=== PATIENT | male | born 1955 | race Caucasian/White ===

== ENCOUNTER → 2021-10-13 13:20 | Outpatient (BNVA) | payer MEDICARE, SELFPAY | PROVIDERS: PCP Nurse Practitioner Family; Referring Provider Nurse Practitioner Family; Visit Provider Nurse Practitioner | DX: Z12.11 Encounter for screening for malignant neoplasm of colon (principal); D12.6 Benign neoplasm of colon, unspecified | CPT/HCPCS: 99202 ==

== ENCOUNTER 2021-10-19 08:49 | Outpatient (REF) | payer MEDICARE, SELFPAY ==
[2021-10-19 11:26] LABS: MANUAL DIFF FLAG NO
[2021-10-19 11:31] LABS: Basophils Absolute Auto 0.2 X10*3/uL (0.0-0.2); Basophils Percent Auto 2.9 % (0-2); Eosinophils Absolute Auto 0.2 X10*3/uL (0.0-0.4); Eosinophils Percent Auto 2.6 % (0-4); Hematocrit 42.8 % (42.0-52.0); Hemoglobin 14.4 g/dl (14.0-18.0); Imm Gran Abs Auto 0.04 X10*3/uL (0.00-0.03); Imm Gran Pct Auto 0.5 % (0.0-0.4); Lymphocytes Absolute Auto 2.3 X10*3/uL (1.2-4.9); Lymphocytes Percent Auto 29.7 % (20-40); Mean Corpuscular HGB Conc 33.6 g/dl (31.0-36.0); Mean Corpuscular Hemoglobin 31.3 pg (27.0-33.0); Mean Platelet Volume 9.8 fL (9.4-12.4); Monocytes Percent Auto 12.6 % (2-11); Neutrophils Percent Auto 51.7 % (45-73); Platelet Count 332 X10*3/uL (160-400); White Blood Count 7.8 X10*3/uL (4.8-10.8)
[2021-10-19 11:46] LABS: Alanine Aminotransferase 18 U/L (0-40); Albumin Level 3.9 g/dL (3.5-5.0); Alkaline Phosphatase 61 U/L (39-117); Anion Gap 11 (12-20); Aspartate Amino Transferase 23 U/L (5-37); Bilirubin Total 0.4 mg/dL (0.0-1.0); Blood Urea Nitrogen 8 mg/dL (9-16); Calcium 9.2 mg/dL (8.4-10.2); Carbon Dioxide 30 mmol/L (22-29); Chloride 96 mmol/L (96-108); Estimated Glomerular Filt Rate > 60; Glucose Random 91 mg/dL (60-115); Potassium 4.6 mmol/L (3.3-5.1); Sodium 132 mmol/L (135-145); Total Protein 6.3 g/dL (6.5-8.0)
== END 2021-10-19 08:50 | disposition home or self-care (01) ==
LOC: HO.HMGCLDS 08:49
PROVIDERS: PCP Nurse Practitioner Family; Visit Provider Nurse Practitioner
DX: Z12.11 Encounter for screening for malignant neoplasm of colon (principal)
CPT/HCPCS: 36415; 80053; 85025

== ENCOUNTER 2021-12-19 12:44 | Outpatient (REF) | payer MEDICARE, SELFPAY ==
--- NOTE | ~2021-12-19 | XR_ITS ---
EXAMINATION: XR CHEST CLINICAL INFORMATION: Pneumonia COMPARISON: None TECHNIQUE: 2 views of the chest were obtained. FINDINGS: The cardiac and mediastinal contours are normal. The lungs are well inflated. There are increased markings seen in the central right upper lobe overlying the right anterior first rib questionable for small infiltrate. The lungs are otherwise clear. There is no pleural effusion or pneumothorax. There are degenerative changes of the spine. XR/XR chest 2V IMPRESSION: Well-inflated lungs suggestive of COPD. Increased markings in the right upper lobe questionable for small infiltrate. Follow-up chest x-ray following treatment recommended.
== END 2021-12-19 12:45 | disposition home or self-care (01) ==
LOC: HO.HMGCX 12:44
PROVIDERS: PCP Nurse Practitioner Family; Visit Provider Family Medicine
DX: J18.9 Pneumonia, unspecified organism (principal); J44.9 Chronic obstructive pulmonary disease, unspecified; R05.9 Cough, unspecified
CPT/HCPCS: 71046

== ENCOUNTER 2022-01-17 08:04 | Outpatient (REF) | payer MEDICARE, SELFPAY ==
--- NOTE | ~2022-01-17 | XR_ITS ---
EXAMINATION: XR CHEST CLINICAL INFORMATION: Pneumonia, unspecified organism COMPARISON: Chest radiograph 12/19/2021 TECHNIQUE: 2 views of the chest were obtained. FINDINGS: The lungs are hyperinflated with inversion of the right hemidiaphragm. There is mild bilateral apical scarring. There is again increased marking in the central right upper lung zone which may represent superimposition of bronchovascular structures as well as degenerative change at the first costochondral junction. In addition there is a 1.2 cm nodular opacity at the lateral aspect of the right mid lung zone overlapping the anterior lateral aspect of the right sixth rib. There is no pleural effusion. The cardiomediastinal silhouette is unchanged. Structures of the chest wall are unchanged XR/XR chest 2V IMPRESSION: Persistent findings of pulmonary hyperinflation with possible nodular opacity in the lateral aspect of the right midlung zone and persistent increased markings in the right upper lung zone. Further evaluation with CT could be helpful.
[2022-01-17 12:09] LABS: Alanine Aminotransferase 21 U/L (0-40); Albumin Level 3.8 g/dL (3.5-5.0); Alkaline Phosphatase 66 U/L (39-117); Anion Gap 11 (12-20); Aspartate Amino Transferase 26 U/L (5-37); Bilirubin Total 0.5 mg/dL (0.0-1.0); Blood Urea Nitrogen 11 mg/dL (9-16); Calcium 9.2 mg/dL (8.4-10.2); Carbon Dioxide 30 mmol/L (22-29); Chloride 97 mmol/L (96-108); Estimated Glomerular Filt Rate > 60; Glucose Random 91 mg/dL (60-115); Potassium 5.2 mmol/L (3.3-5.1); Sodium 133 mmol/L (135-145); Total Protein 6.3 g/dL (6.5-8.0)
[2022-01-17 12:34] LABS: Prostate Specific Antigen Scr 0.49 ng/mL (<0.05-4.0); TSH reflex Free T4 1.33 uIU/mL (0.32-4.0)
== END 2022-01-17 08:05 | disposition home or self-care (01) ==
LOC: HO.HMGCX 08:04
PROVIDERS: PCP Nurse Practitioner Family; Visit Provider Nurse Practitioner Family
DX: J18.9 Pneumonia, unspecified organism (principal); I10 Essential (primary) hypertension; Z12.5 Encounter for screening for malignant neoplasm of prostate
CPT/HCPCS: 36415; 71046; 80053; 84153; 84443

== ENCOUNTER 2022-01-20 08:51 | Outpatient (REF) | payer MEDICARE, SELFPAY ==
[2022-01-20 12:21] LABS: Anion Gap 11 (12-20); Carbon Dioxide 28 mmol/L (22-29); Chloride 94 mmol/L (96-108); Potassium 4.4 mmol/L (3.3-5.1); Sodium 129 mmol/L (135-145)
== END 2022-01-20 08:52 | disposition home or self-care (01) ==
LOC: HO.HMGCLDS 08:51
PROVIDERS: PCP Nurse Practitioner Family; Visit Provider Nurse Practitioner Family
DX: E78.5 Hyperlipidemia, unspecified (principal)
CPT/HCPCS: 36415; 80051

== ENCOUNTER 2022-01-25 06:23 | Outpatient (REF) | payer MEDICARE, SELFPAY ==
[2022-01-25 11:47] LABS: Alanine Aminotransferase 28 U/L (0-40); Albumin Level 3.8 g/dL (3.5-5.0); Alkaline Phosphatase 63 U/L (39-117); Anion Gap 13 (12-20); Aspartate Amino Transferase 29 U/L (5-37); Bilirubin Total 0.5 mg/dL (0.0-1.0); Blood Urea Nitrogen 10 mg/dL (9-16); Calcium 9.2 mg/dL (8.4-10.2); Carbon Dioxide 27 mmol/L (22-29); Chloride 99 mmol/L (96-108); Estimated Glomerular Filt Rate > 60; Glucose Random 97 mg/dL (60-115); Potassium 4.6 mmol/L (3.3-5.1); Sodium 134 mmol/L (135-145); Total Protein 6.1 g/dL (6.5-8.0)
[2022-01-26 07:42] LABS: Osmolality, Serum 277 mosm/kg (281-305)
[2022-01-26 07:43] LABS: Osmolality Urine 289 mosm/kg (373-1093)
== END 2022-01-25 06:24 | disposition home or self-care (01) ==
LOC: HO.HMGCLDS 06:23
PROVIDERS: Visit Provider Nurse Practitioner Family
DX: E87.1 Hypo-osmolality and hyponatremia (principal)
CPT/HCPCS: 36415; 80053; 83930; 83935

== ENCOUNTER 2022-01-31 08:18 | Day surgery (SDC) | payer MEDICARE, SELFPAY ==
[2022-01-24 13:48] VITALS: BMI 17.6
--- NOTE | 2022-01-30 13:10 | HO.ANESPROP2 ---
Documented by User: Zulma Atkinson NP 01/30/22 13:12 HPI - Anesthesia Eval Consult details Narrative: 67yo M for Colonoscopy [facility] Active Problems Active Problems: All Active Problems (Updated 01/24/22 @ 13:49 by Adelia Martinez RN) Screening for colon cancer (Acute) COPD (chronic obstructive pulmonary disease) (Acute) HTN (hypertension) (Acute) Tubular adenoma of colon (Acute) Pneumonia (Acute) Screening PSA (prostate specific antigen) (Acute) Hyperkalemia (Acute) Opacity of lung on imaging study (Acute) Hyponatremia (Acute) Past Medical History Medical History COPD (chronic obstructive pulmonary disease) Skin cancer Smoker Surgical History Surgical History Hx of arthroscopic knee surgery Hx of tonsillectomy Social History Social History Housing: House Patient Tobacco Use Status: Current everyday Tobacco user Tobacco use type: Cigarette Cigarettes Per Day: 20 e-Cigarette/Vaping Use: Never Used Second Hand Smoke Exposure: No Advance Directives: No Advance Directives Information Provided: Yes service: Yes Current occupational status: employed Current occupation: [employer] Current occupational exposures/hazards: Yes Cognitive needs: No Hearing needs: No Vision needs: No Meds Allergies Allergy/AdvReac Type Severity Reaction Status Date / Time bee venom protein (honey bee) Allergy Severe Anaphylaxis Verified 01/03/22 15:20 Exam Exam Date and Time: January 30, 2022 1310 Height,Weight and Vital Signs: Height 5 ft 10 in Weight 55.792 kg Pertinent Lab Results Pertinent Lab Results: Laboratory Tests 10/19/21 01/25/22 09:06 06:28 WBC 7.8 Hgb 14.4 Hct 42.8 Plt Count 332 Sodium 134 L Potassium 4.6 Chloride 99 Carbon Dioxide 27 BUN 10 Creatinine 0.70 Assessment and Plan Assessment Anesthesia Assessment: Chart Reviewed Documented by User: Pallavi Barney MD 01/31/22 10:48 [facility] Past Medical History Medical History COPD (chronic obstructive pulmonary disease) Skin cancer Smoker Surgical History Surgical History Hx of arthroscopic knee surgery Hx of tonsillectomy History of Problems with Anesthesia: No Social History Social History Housing: House Patient Tobacco Use Status: Current everyday Tobacco user Tobacco use type: Cigarette Cigarettes Per Day: 20 e-Cigarette/Vaping Use: Never Used Second Hand Smoke Exposure: No Advance Directives: No Advance Directives Information Provided: Yes service: Yes Current occupational status: employed Current occupation: [employer] Current occupational exposures/hazards: Yes Cognitive needs: No Hearing needs: No Vision needs: No Meds Allergies Allergy/AdvReac Type Severity Reaction Status Date / Time bee venom protein (honey bee) Allergy Severe Anaphylaxis Verified 01/03/22 15:20 Exam Airway Mallampati Class: III (Poor dentition) Neck ROM: Full Loose/Missing/Broken Teeth: Yes, Upper and Lower Heart: RRR Lungs: CTA Assessment and Plan Assessment Anesthesia Assessment: Anesthesia Plan Discussed Final Anesthetic Review History of Problems with Anesthesia: No NPO: Yes ASA Class: III Final Preanesthetic Review: Meds/Allgs Chart Reviewed, Consent Obtained/Reviewed and Anes Risks/Benef Reviewed Patient Risk: Intermediate Procedure Risk: Low Anesthetic Plan Anesthetic Plan: MAC: Disposition: Standard PACU
[2022-01-31 08:43] VITALS: BP 151/85; PULSE 102; RESP 20; TEMP 36.7; O2SAT 100
--- NOTE | 2022-01-31 09:08 | P.HPSUR_ITS ---
Pre-Procedural Eval Section A Date of Service: 01/31/22 Section B Chief Complaint: screening Relevant Family History (Specify if Yes): No Relevant Social History: Tobacco Use Present Medications: see Short Stay Collaborative assessment Medical History: Significant History (COPD (chronic obstructive pulmonary disease) Skin cancer Smoker) History of Previous Operations: Relevant previous surgery/procedure and date(s) (Hx of arthroscopic knee surgery Hx of tonsillectomy) Allergies: Allergies Allergy/AdvReac Type Severity Reaction Status Date / Time bee venom protein (honey bee) Allergy Severe Anaphylaxis Verified 01/03/22 15:20 Review of Systems Sugical H&P ROS: Negative: Constitution, Cardiovascular, Respiratory, Neurological, Psychiatric, Hem-Onc, Allergic/Immunologic, Gastrointestinal, Genitourinary, Musculoskeletal, Integumentary, Endocrine and Eye s/Ears/Nose/Throat Exam Surgical H&P Exam: Normal: HEENT, Normal: Heart, Normal: Extremities, Normal: Abdomen, Normal: Skin and Normal: Neurological and Significant Findings: Lungs (reduced BS, hyperinflated chest) Plan Diagnosis/Plan: Unchanged I have reviewed the history and physical and performed a pertinent physical examination on my patient. No changes have occurred unless specified.
[2022-01-31] MEDS: Albuterol Sulfate (0.083%) 2.5 MG/3 ML VIAL.NEB INHALE ×2 (09:14→09:15)
--- NOTE | 2022-01-31 09:25 | P.BOP_ITS ---
Brief Operative Note Date of Service: 01/31/22 Pre-op diagnosis: screening Post-op diagnosis: same Procedure: see op note Surgeon: Alonzo Sullivan MD Anesthesia: MAC Was an Primary Care Sales Representative used for this Procedure?: No Estimated blood loss (mL): 0 Condition: stable Disposition: PACU
--- NOTE | 2022-01-31 09:36 | P.OP_ITS ---
Operative Note Operative Note Date of Service: 01/31/22 Narrative: Operative Information Procedure Description: Colonoscopy Indication: screening colonoscopy Anesthesia: MAC COLONOSCOPY Instrument: Olympus variable stiffness pediatric scope 190L Colonoscopy Monitoring: Vital signs and clinical assessment, continuous EKG monitoring, Pulse oximetry, Carbon Dioxide monitoring and blood pressure monitoring were done throughout the procedure. Colon withdrawal time was 10 minutes. Procedure: The patient was placed in the left lateral decubitis position and pre-procedure medications were administered. After a digital rectal examination of the ano-rectum, the video colonoscope was inserted into the rectum and advanced through the colon to the cecum/TI. The colonoscope was slowly withdrawn in a retrograde panoramic fashion and the colon mucosa was carefully examined including a retroflexed view of the rectum. Findings and interventions are described below. Procedure Difficulty: easy Findings: Terminal Ileum-normal Cecum:normal Ascending Colon: 10-12 mm sessile polyp removed with cold snare Transverse Colon -8-10 mm sessile polyp removed with cold snare Descending Colon:normal Sigmoid Colon: moderate severe diverticulosis Rectum: Retroflexion with small internal hemorrhoids, grade I Anorectum - normal Colon preparation: Orchard Bowel Preparation Scale Right colon; 2 Transverse colon: 2 Left colon; 2 (0 = Unprepared colon segment with mucosa not seen due to solid stool that cannot be cleared. 1 = Portion of mucosa of the colon segment seen, but other areas of the colon segment not well seen due to staining, residual stool and/or opaque liquid. 2 = Minor amount of residual staining, small fragments of stool and/or opaque liquid, but mucosa of colon segment seen well. 3 = Entire mucosa of colon segment seen well with no residual staining, small fragments of stool or opaque liquid) Impression and Post Procedure Diagnosis: polyps internal hemorrhoids diverticular disease Plan: High fiber diet leaflet Avoid straining at stool, epsom salts and sitz bath, anusol supps or cream Repeat Colonoscopy in 5 years if adenomatous polyps, 10 yrs if benign or earlier if clinically indicated Above findings were reviewed with the patient and relevant handouts were provided if indicated.
[2022-01-31 09:58] VITALS: BP 112/61; PULSE 94; RESP 20; TEMP 36.8; O2SAT 100
[2022-01-31 10:13] VITALS: BP 141/72; PULSE 92; RESP 18; TEMP 36.6; O2SAT 98
== END 2022-01-31 10:52 | disposition home or self-care (01) ==
PROVIDERS: PCP Nurse Practitioner Family; Visit Provider Internal Medicine Gastroenterology
PROC: 0DJD8ZZ Inspection of Lower Intestinal Tract, Via Natural or Artificial Opening Endoscopic (ICD-10-PCS; CPT 45378; principal; 2022-01-31 09:30)
DX: Z12.11 Encounter for screening for malignant neoplasm of colon (principal); D12.2 Benign neoplasm of ascending colon; D12.3 Benign neoplasm of transverse colon; K57.30 Diverticulosis of large intestine without perforation or abscess without bleeding; K64.0 First degree hemorrhoids; I10 Essential (primary) hypertension; J44.9 Chronic obstructive pulmonary disease, unspecified; Z79.899 Other long term (current) drug therapy; Z85.828 Personal history of other malignant neoplasm of skin; Z91.030 Bee allergy status; F17.210 Nicotine dependence, cigarettes, uncomplicated
CPT/HCPCS: 45385; 88305

== ENCOUNTER 2022-02-03 08:10 | Outpatient (REF) | payer MEDICARE, SELFPAY ==
--- NOTE | ~2022-02-03 | CT_ITS ---
EXAMINATION: CT CHEST WITHOUT CONTRAST CLINICAL INFORMATION: Pneumonia. Follow-up abnormal chest x-ray. COMPARISON: Previous chest x-rays from November and December 2021 TECHNIQUE: Multidetector volumetric CT imaging of the chest was done. Axial MIP volume rendering provided. Sagittal and coronal reformatted images were obtained. This CT examination was performed using dose optimization techniques as appropriate, variously including the following: *Automated exposure control *Adjustment of mA and/or kV according to patient size (this includes techniques or standardized protocols for targeted exams where dose is matched to indication/reason for exam; i.e. extremities or head) *Use of iterative reconstruction technique DLP: 95 mGy-cm FINDINGS: LUNGS: There is evidence of emphysema. There is mild biapical pleural parenchymal scarring. There is a 2 mm right upper lobe nodule axial image 53 series 7. There are 2 2 mm left upper lobe nodules axial image 53 series 7. There are larger 4 mm peripheral left upper lobe nodules axial image 61 series 7 probably related to pleural and parenchymal scarring. There is a 5 mm peripheral or subpleural left upper lobe nodule along the left pleural fissure axial image 82 series 7. There are several more inferior peripheral or subpleural nodules in the left upper and left lower lobe along the major fissure, for example axial image 106 series 7. There is a 2 mm superior segment right lower lobe nodule axial image 174 series 7. There is a 2 mm peripheral left lower lobe nodule axial image 174 series 7. . There are scattered areas of bronchial wall thickening and bronchial soft tissue opacification. This is greatest in the lower lobes, for example axial image 450 series 7 in the right lower lobe. There are clustered peribronchial left lower lobe nodules suggestive of airways disease for example axial image 205 and 235 series 7 and in the right middle lobe for example axial image 307 series 7.. There is a 2 mm calcified left lower lobe nodule axial image 258 series 7. MEDIASTINUM: There is coronary artery calcification. The mediastinum is otherwise normal. PLEURA: There is no pleural effusion. No pleural mass or thickening. AXILLA: No lymphadenopathy. UPPER ABDOMEN: Unremarkable. OSSEOUS STRUCTURES: There are degenerative changes of the spine. CT/CT chest wo con IMPRESSION: Emphysema. Mild biapical pleural parenchymal scarring. Scattered areas of active airways disease with bronchial wall thickening, soft tissue opacification and clustered peribronchial nodules or tree-in-bud appearance. Small pulmonary nodules or micro-nodules. According to the UPDATED 2017 Fleischner Society recommendations, the advised follow-up imaging for less than 6 mm solid nodule, low risk, no chest CT follow-up and high risk, optional chest CT follow-up in one Fleischner guidelines were followed.
== END 2022-02-03 08:11 | disposition home or self-care (01) ==
LOC: HO.CT 08:10
PROVIDERS: PCP Nurse Practitioner Family; Visit Provider Nurse Practitioner Family
DX: R91.8 Other nonspecific abnormal finding of lung field (principal)
CPT/HCPCS: 71250

== ENCOUNTER → 2022-02-13 13:53 | Outpatient (BNVA) | payer MEDICARE, SELFPAY | PROVIDERS: PCP Nurse Practitioner Family; Referring Provider Nurse Practitioner Family; Visit Provider Nurse Practitioner | DX: D12.6 Benign neoplasm of colon, unspecified (principal) | CPT/HCPCS: 99212 ==

== ENCOUNTER 2022-02-22 06:28 | Outpatient (REF) | payer MEDICARE, SELFPAY ==
[2022-02-22 11:35] LABS: Appearance Urine CLEAR; Color Urine YELLOW; Glucose Urine UA NEG (NEG); Leukocyte Esterase Urine NEG (NEG); Nitrite Urine NEG (NEG); Specific Gravity - Urine <= 1.005 (1.005-1.025); Urine Blood NEG (NEG); Urine Ketones NEG (NEG); Urine Protein NEG (NEG-TRACE)
[2022-02-22 12:17] LABS: Prostate Specific Antigen Scr 0.48 ng/mL (<0.05-4.0); TSH reflex Free T4 1.01 uIU/mL (0.32-4.0)
[2022-02-22 12:34] LABS: Alanine Aminotransferase 23 U/L (0-40); Albumin Level 3.8 g/dL (3.5-5.0); Alkaline Phosphatase 62 U/L (39-117); Anion Gap 12 (12-20); Aspartate Amino Transferase 24 U/L (5-37); Bilirubin Total 0.2 mg/dL (0.0-1.0); Blood Urea Nitrogen 10 mg/dL (9-16); Calcium 9.3 mg/dL (8.4-10.2); Carbon Dioxide 28 mmol/L (22-29); Chloride 99 mmol/L (96-108); Cholesterol 182 mg/dL; Estimated Glomerular Filt Rate > 60; Glucose Fasting 98 mg/dL (60-99); HDL Cholesterol 98 mg/dL; LDL Cholesterol Calculated 77 mg/dl; Potassium 4.6 mmol/L (3.3-5.1); Sodium 134 mmol/L (135-145); Total Protein 6.1 g/dL (6.5-8.0); Triglycerides 35 mg/dL
== END 2022-02-22 06:29 | disposition home or self-care (01) ==
LOC: HO.HMGCLDS 06:28
PROVIDERS: Visit Provider Nurse Practitioner Family
DX: Z12.5 Encounter for screening for malignant neoplasm of prostate (principal); E87.1 Hypo-osmolality and hyponatremia; I10 Essential (primary) hypertension
CPT/HCPCS: 36415; 80053; 80061; 81003; 84153; 84443

== ENCOUNTER 2022-09-26 14:04 | Outpatient (REF) | payer MEDICARE, SELFPAY ==
[2022-09-26 14:56] LABS: Influenza A PCR POSITIVE (Negative); Influenza B PCR NEGATIVE (Negative); Resp Syncy Virus RNA Qual PCR NEGATIVE (Negative); SARS COV2 PCR INHOUSE NEGATIVE (Negative)
== END 2022-09-26 14:05 | disposition home or self-care (01) ==
LOC: HO.LNP 14:04
PROVIDERS: Visit Provider Internal Medicine
DX: R43.9 Unspecified disturbances of smell and taste (principal); Z20.822 Contact with and (suspected) exposure to COVID-19
CPT/HCPCS: 0241U

== ENCOUNTER 2023-05-09 08:31 | Outpatient (AMB) | payer MEDICARE, SELFPAY ==
--- NOTE | 2023-05-09 08:48 | MHC.PC.OV ---
Vital Signs 05/09/23 08:49 Height 5 ft 7 in Weight 118 lb 6 oz BMI 18.5 BP 170/80 H Blood Pressure Location Rt brachial Position Sitting Pulse 74 Pulse Source Pulse Oximeter Pulse Oximetry (%) 100 Oxygen Delivery Method Room Air Intake Visit Reasons: Followup meds Allergies bee venom protein (honey bee) Allergy (Severe, Verified 05/09/23 08:51) Anaphylaxis Medication List - Last Reconciled 05/09/23 by ROMULO Jacobsen albuterol sulfate 90 mcg/actuation (ProAir HFA) 2 inhalations inhalation Q8H PRN 90 days amlodipine 5 mg PO DAILY 90 days fluticasone furoate-vilanterol 200-25 mcg/dose (Breo Ellipta) 1 inh inhalation Q24H 90 days umeclidinium 62.5 mcg/actuation (Incruse Ellipta) 1 inh inhalation DAILY 90 days Tobacco use date assessed: 05/09/23 Fall risk assessment: No Falls in past year Last assessed Fall Risk: 05/09/23 Dental Screening Dental Screen Date: 05/09/23 Did you have a dental visit in the last 12 months?: No Did you have a dental problem in the last 6 months where you did not have access to dental care?: No Was dental information given to patient?: No HPI Followup meds HPI Details HTN: Blood pressure is managed with amlodipine 5mg. Pt reports that his blood pressure at home is in the 130s-140s/70s-80s. Will increase amlodipine from 5mg to 10mg. Denies chest pain, shortness of breath, headache, dizziness, and blurred vision. Pt was previously having low-dose lung CTs due to smoking ([facility] at the [facility]). Due for repeat, will order and refer to [facility] thoracics. PFSH Medical History COPD (chronic obstructive pulmonary disease) Skin cancer Smoker Surgical History H/O colonoscopy Hx of arthroscopic knee surgery Hx of tonsillectomy Social History Housing: House Patient Tobacco Use Status: Current everyday Tobacco user Tobacco use type: Cigarette Cigarette Packs Per Day: 1 Cigarettes Per Day: 20 e-Cigarette/Vaping Use: Never Used Second Hand Smoke Exposure: No service: Yes Current occupational status: employed Current occupation: [employer] Current occupational exposures/hazards: Yes Cognitive needs: No Hearing needs: No Vision needs: No Questionnaire Thrive Questionnaire Date Thrive assessed: 06/28/21 Review of Systems Const Reports as per HPI Physical exam (Primary Care) Vital Signs: Last Vital Signs Pulse 74 05/09/23 08:49 BP 170/80 H 05/09/23 08:49 Pulse Ox 100 05/09/23 08:49 Oxygen Delivery Method Room Air 05/09/23 08:49 BMI result Body Mass Index 18.5 Tobacco/Smoking Status: Tobacco use Status Tobacco use date assessed 05/09/23 05/09/23 08:55 Patient Tobacco Use Status Current everyday Tobacco 05/09/23 08:49 Tobacco use type Cigarette 05/09/23 08:49 e-Cigarette/Vaping Use Never Used 05/09/23 08:49 Thrive Assessment: Date of Thrive Assessment Date Thrive assessed 06/28/21 05/09/23 08:49 Const Other: skinny stature General: cooperative Orientation/consciousness: patient oriented x3 Resp Effort & Inspection: normal respiratory effort Auscultation: wheezes expiratory wheezes Cardio Rate: regular rate Rhythm: regular rhythm Heart sounds: S1 normal heart sound present and S2 normal heart sound present Neuro General: patient oriented x3 Psych Appearance: grossly normal Mental Status: mental status grossly normal Speech and movement: Normal speech and movement present Affect: normal affect Attitude: cooperative Thought process: Normal thought process present Thought content: Normal thought content present Insight: Good insight present (Psych) Judgement: Good judgement present (Psych) Assessment and Plan Assessment & Plan (1) COPD (chronic obstructive pulmonary disease): Code(s): J44.9 - Chronic obstructive pulmonary disease, unspecified (2) Smoker: Code(s): F17.200 - Nicotine dependence, unspecified, uncomplicated (3) HTN (hypertension): Code(s): I10 - Essential (primary) hypertension Plan The patient agreed to the use of a center medical and lab director for this encounter. Scribed for ROMLUO Sinclair by Mikki Herron center medical and lab director, on 05/09/2023 at 08:55 EST. Orders: Orders CT chest wo IV con Today F17.200 - Nicotine dependence, unspecified, uncomplicated, J44.9 - Chronic obstructive pulmonary disease, unspecified Comprehensive Maple. Panel Fast Today F17.200 - Nicotine dependence, unspecified, uncomplicated, I10 - Essential (primary) hypertension, J44.9 - Chronic obstructive pulmonary disease, unspecified Lipid Panel Today F17.200 - Nicotine dependence, unspecified, uncomplicated, I10 - Essential (primary) hypertension, J44.9 - Chronic obstructive pulmonary disease, unspecified TSH reflex Free T4 Today F17.200 - Nicotine dependence, unspecified, uncomplicated, I10 - Essential (primary) hypertension, J44.9 - Chronic obstructive pulmonary disease, unspecified Complete Blood Count Auto Diff Today F17.200 - Nicotine dependence, unspecified, uncomplicated, I10 - Essential (primary) hypertension, J44.9 - Chronic obstructive pulmonary disease, unspecified UA CC w/rflx Micro + Cult Today F17.200 - Nicotine dependence, unspecified, uncomplicated, I10 - Essential (primary) hypertension, J44.9 - Chronic obstructive pulmonary disease, unspecified Prostate Specific Antigen Scr Today Z12.5 - Encounter for screening for malignant neoplasm of prostate Referrals Thoracic Surgery Referral F1.200 - Nicotine dependence, unspecified, uncomplicated, J44.9 - Chronic obstructive pulmonary disease, unspecified Medications: Changed From amlodipine 5 mg PO DAILY 90 days 90 tabs 0RF To amlodipine 10 mg PO DAILY 90 days 90 tabs 0RF Refilled amlodipine 10 mg PO DAILY 90 days 90 tabs 1RF fluticasone furoate-vilanterol 200-25 mcg/dose (Breo Ellipta) 1 inh inhalation Q24H 90 days 180 ea 1RF umeclidinium 62.5 mcg/actuation (Incruse Ellipta) 1 inh inhalation DAILY 90 days 30 ea 0RF Coding Level of Care Code Est Pt Level 3 (59936) Diagnoses COPD (chronic obstructive pulmonary disease) J44.9 Smoker F17.200 HTN (hypertension) I10
[2023-05-09 08:49] VITALS: BP 170/80; PULSE 74; O2SAT 100; BMI 18.5
== END 2023-05-09 09:10 | disposition home or self-care (01) ==
PROVIDERS: PCP Nurse Practitioner Family; Visit Provider Nurse Practitioner Family
DX: J44.9 Chronic obstructive pulmonary disease, unspecified (principal); F17.200 Nicotine dependence, unspecified, uncomplicated; I10 Essential (primary) hypertension
CPT/HCPCS: 99213

== ENCOUNTER 2023-05-09 09:12 | Outpatient (REF) | payer MEDICARE, SELFPAY ==
[2023-05-09 11:14] LABS: MANUAL DIFF FLAG NO
[2023-05-09 11:28] LABS: Appearance Urine Clear; Color Urine Yellow; Glucose Urine UA Negative (Negative); Leukocyte Esterase Urine Negative (Negative); Nitrite Urine Negative (Negative); PH 6.5 (5.0-9.0); Specific Gravity - Urine <= 1.005 (1.005-1.025); Urine Blood Negative (Negative); Urine Ketones Negative (Negative); Urine Protein Negative (Neg-Trace)
[2023-05-09 11:31] LABS: Basophils Absolute Auto 0.2 X10*3/uL (0.0-0.2); Basophils Percent Auto 2.6 % (0-2); Eosinophils Absolute Auto 0.1 X10*3/uL (0.0-0.4); Eosinophils Percent Auto 1.7 % (0-4); Hematocrit 44.8 % (42.0-52.0); Hemoglobin 15.4 g/dl (14.0-18.0); Imm Gran Abs Auto 0.05 X10*3/uL (0.00-0.03); Imm Gran Pct Auto 0.6 % (0.0-0.4); Lymphocytes Absolute Auto 1.9 X10*3/uL (1.2-4.9); Mean Corpuscular HGB Conc 34.4 g/dl (31.0-36.0); Mean Corpuscular Hemoglobin 31.4 pg (27.0-33.0); Mean Corpuscular Volume 91.2 fL (80.0-98.0); Mean Platelet Volume 9.8 fL (9.4-12.4); Monocytes Absolute Auto 0.8 X10*3/uL (0.1-1.2); Monocytes Percent Auto 9.1 % (2-11); Neutrophils Absolute Auto 5.4 x10*3/uL (2.0-8.3); Platelet Count 392 X10*3/uL (160-400); Red Blood Count 4.91 X10*6/uL (4.60-5.80); Red Cell Distribution Width 13.3 % (11.0-16.0); White Blood Count 8.4 X10*3/uL (4.8-10.8)
[2023-05-09 12:28] LABS: Alanine Aminotransferase 19 U/L (0-40); Albumin Level 4.5 g/dL (3.5-5.0); Alkaline Phosphatase 69 U/L (39-117); Anion Gap 14 (12-20); Aspartate Amino Transferase 24 U/L (5-37); Bilirubin Total 0.6 mg/dL (0.0-1.0); Blood Urea Nitrogen 7 mg/dL (9-16); Calcium 9.7 mg/dL (8.4-10.2); Carbon Dioxide 30 mmol/L (22-29); Chloride 94 mmol/L (96-108); Cholesterol 194 mg/dL; Estimated Glomerular Filt Rate > 60; Glucose Fasting 86 mg/dL (60-99); HDL Cholesterol 122 mg/dL; LDL Cholesterol Calculated 65 mg/dl; Potassium 5.1 mmol/L (3.3-5.1); Sodium 133 mmol/L (135-145); TSH reflex Free T4 0.93 uIU/mL (0.32-4.0); Total Protein 7.2 g/dL (6.5-8.0); Triglycerides 35 mg/dL
== END 2023-05-09 09:13 | disposition home or self-care (01) ==
LOC: HO.HMGCLDS 09:12
PROVIDERS: PCP Nurse Practitioner Family; Visit Provider Nurse Practitioner Family
DX: Z12.5 Encounter for screening for malignant neoplasm of prostate (principal); J44.9 Chronic obstructive pulmonary disease, unspecified; I10 Essential (primary) hypertension; F17.200 Nicotine dependence, unspecified, uncomplicated
CPT/HCPCS: 36415; 80053; 80061; 81003; 84153; 84443; 85025

== ENCOUNTER 2023-07-13 12:54 | Outpatient (AMB) | payer MEDICARE, SELFPAY ==
--- NOTE | 2023-07-13 07:27 | A.OFFVIS_ITS ---
Intake Intake Visit Reasons: LDCT SD Allergies bee venom protein (honey bee) Allergy (Severe, Verified 05/09/23 08:51) Anaphylaxis HPI LDCT SD HPI Details Initial visit for this 68yo smoker with a 50PYH. Patient has been smoking since age 18 for 50 years at 1ppd. . Denies marijuana use. Denies second hand smoke exposure. 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 . Denies known family history of lung cancer. Notes personal history of skin cancer - BCC - s/p excision. . Denies chest CT in last year. Was previously in [facility] lung screening program with a Lung RADS 1 in 06/2021. Prior chest CT done by PCP 02/03/2022 multiple small nodules, emphysema and pleural/parenchymal scarring . Denies recent travel outside the [place]. Denies recent respiratory illness or recent hospitalization for respiratory issues. Reports testing positive for COVID as well as pneumonia in 2021. Admits receiving COVID Vaccine. . Denies fever, chills, new/worsening cough, hemoptysis, hoarseness or dysphagia. Denies significant chest pain, significant dyspnea or unintentional weight loss. Patient Lung Cancer Screening Questionnaire reviewed with patient by provider. . Shared Decision Making Completed. Patient meets criteria. Discussed in detail with patient, the risk vs benefit of LDCT screening. Patient consents to proceed with scan. Discussed smoking cessation. [facility] Medical History (Updated 07/13/23 @ 13:16 by Holly Steiner PA-C) Tubular adenoma of colon (~2021) HTN (hypertension) COPD (chronic obstructive pulmonary disease) Nicotine dependence, cigarettes, uncomplicated History of basal cell cancer Surgical History (Updated 07/13/23 @ 13:15 by Holly Steiner PA-C) History of colonoscopy History of tonsillectomy History of hernia repair History of hand surgery History of knee surgery History of basal cell carcinoma excision Social History (Updated 07/13/23 @ 13:04 by Holly Steiner PA-C) Housing: House Patient Tobacco Use Status: Current everyday Tobacco user Tobacco use type: Cigarette Cigarette Packs Per Day: 1 Years Smoked: onset 18yo, 1ppd x 50yrs, 50pyh) e-Cigarette/Vaping Use: Never Used Second Hand Smoke Exposure: No service: Yes Current occupational status: employed Current occupation: [employer] Current occupational exposures/hazards: Yes Cognitive needs: No Hearing needs: No Vision needs: No Assessment & Plan Assessment & Plan (1) Nicotine dependence, cigarettes, uncomplicated: Comment: (current smoker - onset 18yo, 1ppd x 50yrs, 50pyh) Code(s): F17.210 - Nicotine dependence, cigarettes, uncomplicated Plan: - SDM visit completed today in office. - Patient meets criteria for LDCT for lung cancer screening purposes and is as ymptomatic. - Smoking cessation counseling offered. Patients can always call [phone]. - Will arrange for a LDCT scan of the chest for screening purposes at [facility]. - Risks, benefits, and alternatives were discussed in detail and the patient agrees to proceed. - Risks discussed include but are not limited to: radiation exposure, anxiety during testing and while awaiting results, false negatives, false positives and possibility of additional intervention such as further imaging or surgical procedures for benign disease. - Benefits are obviously detection of lung cancer at an early stage which can lead to improved outcomes. - Discussed the importance of screening program compliance with adherence to yearly LDCT scan as scheduled - or sooner interval scans for personalized screening regimen. - Discussed follow up plan. Our office will send a letter discussing results and if needed set up phone call and office visit based on CT findings. - Patient educated on results categorization and the management decisions for suspicious findings potentially found on the screening LDCT scan. Any patient with a Lung RADS score of 3 or 4 will be reviewed by a multidisciplinary team at [facility] to form a plan of action in regards to scan findings. - If further work up is warranted for a suspicious lung finding this will be followed by the Lung Cancer Screening program in conjunction with the Thoracic Surgery Department at [facility]. - A copy of the office note and LDCT will be sent to the patient's PCP - as well as documentation on any associated further plans of care. - Incidental findings on LDCT are the PCP's responsibility. These findings are indicated with an S finding on the LDCT Assessment. A note discussing the findings will be sent to the PCP who is then responsible for further management. - All questions answered.? Plan OF NOTE FOR PCP: The USPTF recommends all men aged 65-75 who have ever smoked have a one-time abdominal ultrasound for AAA screening - recommend if not done prior. Patient states there is a family history of AAA. He will further discuss screening with PCP. Coding Level of Care Code Lung Cancer Screening G0296 Diagnoses Nicotine dependence, cigarettes, uncomplicated F17.210
== END 2023-07-13 14:28 | disposition home or self-care (01) ==
PROVIDERS: PCP Nurse Practitioner Family; Visit Provider Physician Assistant Medical
DX: F17.210 Nicotine dependence, cigarettes, uncomplicated (principal)
CPT/HCPCS: G0296

== ENCOUNTER 2023-07-13 13:14 | Outpatient (REF) | payer MEDICARE, SELFPAY ==
--- NOTE | ~2023-07-13 | CT_ITS ---
EXAMINATION: CT CHEST LOW-DOSE SCREENING WITHOUT CONTRAST HISTORY: Asymptomatic patient meeting criteria for lung screening. PATIENT PACK-YEAR HISTORY: 51 Current Smoker: Yes If former smoker, years since quitting: COMPARISON: 02/03/2022 TECHNIQUE: Multidetector volumetric non-contrast CT imaging of the chest was performed using low dose screening CT technique. Axial thin section 0.625 mm reformations in soft tissue and lung windows were obtained. Sagittal and coronal reformations were obtained. Axial MIP images were also created and reviewed. RECONSTRUCTED WIDTH: 1.25 mm x 1.25 mm TOTAL EXAM DLP: 41 mGy-cm CTDIvol: 0.80 L mGy FINDINGS: LUNGS: Mild to moderate centrilobular emphysema. No suspicious pulmonary nodule. Diffuse bronchiectasis. No focal consolidation. Central airways are patent. PLEURA: No pleural effusion. LYMPH NODES: No mediastinal, hilar or axillary adenopathy or free fluid collection. MEDIASTINUM: Heart size is normal. Great vessels are of normal caliber. No pericardial effusion. CORONARY ARTERY CALCIFICATIONS: Moderate. CHEST WALL/BREASTS: No acute abnormality. UPPER ABDOMEN: This study was performed without contrast and with lower than standard dose, reducing the sensitivity for detection of small lesions in the upper abdomen. OSSEOUS STRUCTURES: No destructive bone lesions. CT/CT lung screening IMPRESSION: No suspicious pulmonary nodules. LUNG-RADS CATEGORY ASSESSMENT: 2. Benign appearance or behavior. Nodules with a very low likelihood of becoming a clinically active cancer due to size or lack of growth. Continue annual screening with low-dose CT in 12 months. Probability of malignancy less than 1%. INCIDENTAL FINDINGS (S CATEGORY): Finding: No incidental findings. Significance category: Normal or normal variant. RECOMMENDATION: Low dose lung CT. overall in 1 year. Visual estimate of coronary calcified plaque burden: Moderate. However, this exam cannot replace a dedicated cardiac CT calcium score for accurate assessment. LUNG-RADS CATEGORY: 2 -- BENIGN
== END 2023-07-13 13:15 | disposition home or self-care (01) ==
LOC: HO.CT 13:14
PROVIDERS: PCP Nurse Practitioner Family; Visit Provider Physician Assistant Medical
DX: F17.210 Nicotine dependence, cigarettes, uncomplicated (principal)
CPT/HCPCS: 71271; G0296

== ENCOUNTER 2023-09-19 08:40 | Outpatient (AMB) | payer MEDICARE, SELFPAY ==
--- NOTE | 2023-09-19 09:03 | A.OFFPC_ITS ---
Vital Signs 09/19/23 09:06 Height 5 ft 7 in Weight 118 lb BMI 18.5 BP 130/90 H Blood Pressure Location Lt brachial Position Sitting Pulse 71 Pulse Source Pulse Oximeter Pulse Oximetry (%) 98 Oxygen Delivery Method Room Air Intake Visit Reasons: Annual PE Intake Note: Patient here for physical exam. Allergies bee venom protein (honey bee) Allergy (Severe, Verified 09/19/23 09:06) Anaphylaxis Tobacco use date assessed: 05/09/23 Fall risk assessment: No Falls in past year Last assessed Fall Risk: 09/19/23 Dental Screening Dental Screen Date: 09/19/23 Did you have a dental visit in the last 12 months?: No Did you have a dental problem in the last 6 months where you did not have access to dental care?: No Was dental information given to patient?: No HPI Annual PE HPI Details Pt is here for a PE. Will order labs. Colon screen is up to date. PSA is up to date. Denies dribbling with urination, weak stream, and frequent nocturia. HTN: Blood pressure is managed with amlodipine 10mg. Denies chest pain, shortness of breath, headache, dizziness, and blurred vision. Pt is part of the low-dose lung CT program. [facility] Medical History Tubular adenoma of colon (~2021) HTN (hypertension) COPD (chronic obstructive pulmonary disease) Nicotine dependence, cigarettes, uncomplicated History of basal cell cancer Surgical History History of colonoscopy History of tonsillectomy History of hernia repair History of hand surgery History of knee surgery History of basal cell carcinoma excision Social History Housing: House Patient Tobacco Use Status: Current everyday Tobacco user Tobacco use type: Cigarette Cigarette Packs Per Day: 1 Years Smoked: onset 18yo, 1ppd x 50yrs, 50pyh) e-Cigarette/Vaping Use: Never Used Second Hand Smoke Exposure: No service: Yes Current occupational status: employed Current occupation: [employer] Current occupational exposures/hazards: Yes Cognitive needs: No Hearing needs: No Vision needs: No Questionnaire PHQ-9 Over the last 2 weeks, how often have you been bothered by any of the following problems? 1. Little interest or pleasure in doing things: not at all 2. Feeling down, depressed, or hopeless: not at all 3. Trouble falling or staying asleep, or sleeping too much: several days 4. Feeling tired or having little energy: several days 5. Poor appetite or overeating: not at all 6. Feeling bad about yourself - or that you are a failure or have let yourself or your family down: not at all 7. Trouble concentrating on things, such as reading the newspaper or watching television: not at all 8. Moving or speaking so slowly that other people could have noticed. Or the opposite - being so fidgety or restless that you have been moving around a lot more than usual: not at all 9. Thoughts that you would be better off or of hurting yourself in some way: not at all Total score: 2 Depression Screening Interpretation: Negative Depression Screening Done: Yes 34258 - PHQ-9 Billing: Yes Source: Developed by Drs. Jesse Moscoso, Maryan Cooper, Keith Villatoro and colleagues, with an educational harriett from [employer]. Thrive Questionnaire Date Thrive assessed: 09/19/23 I am a: Patient What is your living situation today?: I have a steady place to live Within the past 12 months, did the food you bought not last and you didn't have the money to get more?: Never true Within the past 12 months, did you worry whether your food would run out before you got money to buy more?: Never true Do you have trouble paying for medicines?: No Do you have trouble getting transportation to medical appointments?: No Do you have trouble paying your heating and electricity bill?: No Do you have trouble taking care of your child, family member or friend?: No Do you have trouble with day-to-day activities such as bathing, preparing meals, shopping, managing finances, etc.?: No Are you currently unemployed and looking for a job?: No Are you interested in more education?: No AUDIT C Alcohol Use Questionnaire (AUDIT-C) 1. How often do you have a drink containing alcohol?: Monthly or less 2. How many drinks containing alcohol do you have on a typical day when you are drinking?: 1 or 2 3. How often do you have six or more drinks on one occasion?: Never Total Score: 1 Score Reviewed/Action Taken: No YONI-7 AMB Questionnaire YOIN-7 Date YONI - 7 assessed: 09/19/23 Feeling nervous, anxious, or on edge: 0 = Not at all Not being able to stop or control worryin = Not at all Worrying too much about different things: 0 = Not at all Trouble relaxin = Not at all Being so restless that it is hard to sit still: 0 = Not at all Becoming easily annoyed or irritable: 0 = Not at all Feeling afraid as if something awful might happen: 0 = Not at all Total YONI-7 score (0-4 normal; 5-9 mild; 10-14 moderate; 15-21 severe): 0 Source: Developed by Drs. Jesse Moscoso, Maryan Cooper, Keith Villatoro and colleagues, with an educational harriett from [employer]. YONI-7 Assessment Billing YONI-7 Assessment Tool: YONI-7 Assessment 18314 Review of Systems Const Denies chills and Denies fever(s) Eyes Denies blurry vision ENT Denies vertigo, Denies dizziness and Denies sore throat Card Denies chest pain at rest, Denies chest pain with activity, Denies diaphoresis, Denies dyspnea and Denies dyspnea on exertion Resp Denies cough, Denies dyspnea, Denies dyspnea on exertion and Denies wheezing GI Denies abdominal pain, Denies melena, Denies hematochezia, Denies constipation, Denies diarrhea and Denies loose stools Denies hematuria Musc Denies numbness and Denies tingling Skin/Breast Denies lesions Neuro Denies vertigo, Denies dizziness, Denies numbness and Denies tingling Psych Denies anxiety, Denies depression, Denies homicidal ideation, Denies suicidal ideation and Denies other (substance abuse) Aller/Immun Denies wheezing Physical exam (Primary Care) Vital Signs: Last Vital Signs Pulse 71 09/19/23 09:06 BP 130/90 H 09/19/23 09:06 Pulse Ox 98 09/19/23 09:06 Oxygen Delivery Method Room Air 09/19/23 09:06 BMI result Body Mass Index 18.5 Tobacco/Smoking Status: Tobacco use Status Tobacco use date assessed 05/09/23 09/19/23 09:05 Patient Tobacco Use Status Current everyday Tobacco 09/19/23 09:05 Tobacco use type Cigarette 09/19/23 09:05 e-Cigarette/Vaping Use Never Used 09/19/23 09:05 PHQ-9: PHQ-9 Score PHQ-9: Total score 2 09/19/23 09:35 Depression Screening Interpretation: Negative Thrive Assessment: Date of Thrive Assessment Date Thrive assessed 09/19/23 09/19/23 09:35 Const General: cooperative Nutritional Appearance: well nourished Orientation/consciousness: patient oriented x3 HENMT Other: cerumen noted to right ear Head: Yes normal to inspection, Yes normocephalic and Yes atraumatic Ears: TM normal on the left Eyes General: appearance normal, both eyes and all related structures Alignment and Position: alignment normal and position normal Neck Neck: Yes normal visual inspection and Yes no lymphadenopathy Thyroid: Thyroid normal Resp Other: very diminished lungs with coarse wheezing Effort & Inspection: normal respiratory effort Cardio Rate: regular rate Rhythm: regular rhythm Heart sounds: S1 normal heart sound present, S2 normal heart sound present and no murmurs GI Palpation (GI): Soft to palpation and nontender Auscultation: normal bowel sounds Male General Exam: Yes normal external exam Penis: normal penis Scrotum: scrotum normal, testes descended bilaterally and no inguinal hernias Testes: no testicular mass Skin Rashes: no rashes Neuro General: patient oriented x3, moves all extremities, no focal motor deficits and deep tendon reflexes 2+ bilaterally Romberg Test: Negative Psych Appearance: grossly normal Mental Status: mental status grossly normal Speech and movement: Normal speech and movement present Affect: normal affect Attitude: cooperative Thought process: Normal thought process present Thought content: Normal thought content present Insight: Good insight present (Psych) Judgement: Good judgement present (Psych) Immunizations pneumoc 20-fidencio conj-dip cr(PF) 0.5 mL IM syringe Performing Provider: ROMULO Jacobsen Performing Location: [facility] Administered by: DEJON Macario on 09/19/23 09:35 Dose Route Admin Location Dispensed Lot Number Expiration Date NDC Wearing Apparel Folder 0.5 mL IM Left Deltoid 0.5 mL [id number] 10/25/24 WYETH/PFIZER VIS Given Date VIS Provided VIS Publication Date 09/19/23 Single Vaccine 21 Eligibility Eligibility Date Funding Source Not [facility] Eligible 09/19/23 Private Assessment and Plan Assessment & Plan (1) HTN (hypertension): Code(s): I10 - Essential (primary) hypertension Plan: Labs ordered (2) Physical exam: Code(s): Z00.00 - Encounter for general adult medical examination without abnormal findings Plan: Labs ordered Plan The patient agreed to the use of a administrative medical director for this encounter. Scribed for INESSA Sinclair-SONYA by Mikki Herron administrative medical director, on 09/19/2023 at 09:15 EST. Orders: Orders Comprehensive [place]. Panel Fast Today I10 - Essential (primary) hypertension UA CC w/rflx Micro + Cult Today I10 - Essential (primary) hypertension Pneumococcal 20 Immunization Today Z23 - Encounter for immunization Complete Blood Count Auto Diff Today I10 - Essential (primary) hypertension, Z00.00 - Encounter for general adult medical examination without abnormal findings TSH reflex Free T4 Today I10 - Essential (primary) hypertension Lipid Panel Today I10 - Essential (primary) hypertension Coding Level of Care Code Est Pt Prev Care >65y(23666) Diagnoses HTN (hypertension) I10 Physical exam Z00.00 Additional Codes YONI-7 Assessment Billing - YONI-7 Assessment Tool: YONI-7 Assessment 27190 ([id number])
[2023-09-19 09:06] VITALS: BP 130/90; PULSE 71; O2SAT 98; BMI 18.5
== END 2023-09-19 09:43 | disposition home or self-care (01) ==
PROVIDERS: PCP Nurse Practitioner Family; Visit Provider Nurse Practitioner Family
DX: Z00.00 Encounter for general adult medical examination without abnormal findings (principal); I10 Essential (primary) hypertension; Z23 Encounter for immunization
CPT/HCPCS: 90471; 90677; 99397

== ENCOUNTER 2023-09-29 10:16 | Outpatient (AMB) | payer MEDICARE, SELFPAY ==
--- NOTE | 2023-09-29 12:53 | MHC.OFFWIV ---
Intake Vital Signs 09/29/23 13:00 Height 5 ft 7 in Weight 120 lb BMI 18.8 BP 120/64 Blood Pressure Location Rt brachial Position Sitting Pulse 95 Pulse Source Pulse Oximeter Temp 98.0 F Temp Source Oral Pulse Oximetry (%) 94 Oxygen Delivery Method Room Air Intake Visit Reasons: EP, cough, congestion ([phone]) Intake Note: Pt is here today c/o cough and congestion x1week Patient Tobacco Use Status: Current everyday Tobacco user Allergies bee venom protein (honey bee) Allergy (Severe, Verified 09/29/23 12:54) Anaphylaxis Do you need a note to return to daycare/school/sports/work: No HPI HPI Comments History of Present Illness Details 68-year-old male history of COPD that presents for productive cough chest congestion and general malaise endorses a fever several days ago PFSH Medical History Tubular adenoma of colon (~2021) HTN (hypertension) COPD (chronic obstructive pulmonary disease) Nicotine dependence, cigarettes, uncomplicated History of basal cell cancer Surgical History History of colonoscopy History of tonsillectomy History of hernia repair History of hand surgery History of knee surgery History of basal cell carcinoma excision Social History Housing: House Patient Tobacco Use Status: Current everyday Tobacco user Tobacco use type: Cigarette Cigarette Packs Per Day: 1 Years Smoked: onset 18yo, 1ppd x 50yrs, 50pyh) e-Cigarette/Vaping Use: Never Used Second Hand Smoke Exposure: No service: Yes Current occupational status: employed Current occupation: [employer] Current occupational exposures/hazards: Yes Cognitive needs: No Hearing needs: No Vision needs: No Review of Systems Resp Reports change in phlegm color, Reports chest congestion, Reports cough and Reports excessive phlegm production Physical Exam Vital Signs: Last Vital Signs Temp 98.0 F 09/29/23 13:00 Pulse 95 09/29/23 13:00 BP 120/64 09/29/23 13:00 Pulse Ox 94 09/29/23 13:00 Oxygen Delivery Method Room Air 09/29/23 13:00 BMI result Body Mass Index 18.8 Const General: cooperative, no acute distress and alert Orientation/consciousness: patient oriented x3 Limitations: no limitations HEENT Head: Yes normal to inspection Ears: hearing grossly normal bilaterally and external ears normal General nose exam: Normal external nose present Eyes General: appearance normal, both eyes and all related structures Neck Neck: Yes normal visual inspection Chest Chest palpation & inspection: normal inspection of the chest Resp Other: Rhonchi and expiratory wheezes bilaterally throughout Effort & Inspection: normal respiratory effort, able to speak in complete sentences and audible wheezes Cardio Rate: regular rate Rhythm: regular rhythm Skin General skin exam: no rashes or lesions noted Neuro General: patient oriented x3 Psych Appearance: grossly normal Mental Status: mental status grossly normal Speech and movement: Normal speech and movement present Affect: normal affect Attitude: cooperative Thought process: Normal thought process present Thought content: Normal thought content present Assessment & Plan Assessment & Plan (1) Productive cough: Code(s): R05.8 - Other specified cough (2) Pneumonia: Code(s): J18.9 - Pneumonia, unspecified organism Qualifiers: Pneumonia type: due to unspecified organism Laterality: left Lung location: lower lobe of lung Qualified Code(s): J18.9 - Pneumonia, unspecified organism Plan VSS. Exam notable for rhonchi and scattered wheezes throughout. Suspect bronchitis versus pneumonia -chest xr. Fluffy versus focal consolidation left lower lobe and x-ray clear fluid versus pneumonia cover with antibiotics - doxy BID x 5 days -prednisone x 5 days Orders: Orders XR chest 2V Today R05.8 - Other specified cough Medications: New prednisone 40 mg (2 x 20 mg) PO DAILY 5 days 10 tabs 0RF doxycycline hyclate 100 mg PO BID 7 days 14 caps 0RF Coding Level of Care Code Est Pt Level 3 (61837) Diagnoses Productive cough R05.8 Pneumonia of left lower lobe due to infectious organism J18.9 Pneumonia type: due to unspecified organism Laterality: left Lung location: lower lobe of lung
[2023-09-29 13:00] VITALS: BP 120/64; PULSE 95; TEMP 36.7; O2SAT 94; BMI 18.8
== END 2023-09-29 13:52 | disposition home or self-care (01) ==
PROVIDERS: PCP Nurse Practitioner Family; Visit Provider Physician Assistant
DX: R05.8 Other specified cough (principal); J18.9 Pneumonia, unspecified organism
CPT/HCPCS: 99213

== ENCOUNTER 2023-09-29 13:24 | Outpatient (REF) | payer MEDICARE, SELFPAY | END 2023-09-29 13:25 | disposition home or self-care (01) | LOC: HO.HMGCX 13:24 | PROVIDERS: PCP Nurse Practitioner Family; Visit Provider Physician Assistant | DX: R05.8 Other specified cough (principal) | CPT/HCPCS: 71046 ==

== ENCOUNTER 2023-10-15 08:25 | Outpatient (REF) | payer MEDICARE, SELFPAY ==
--- NOTE | ~2023-10-15 | XR_ITS ---
EXAMINATION: XR CHEST CLINICAL INFORMATION: Pneumonia COMPARISON: Chest radiograph 09/29/2023, CT chest 07/13/2023 and 02/03/2022 TECHNIQUE: 2 views of the chest were obtained. FINDINGS: The lungs remain hyperinflated compatible with COPD. Since the prior exam, there's been significant improvement. The previously seen left lower lobe consolidation and cavitary region with air-fluid level (either parenchymal or loculated pleural collection) is no longer seen. There is some remaining increased density seen in the left infrahilar region but the patchy consolidation at the left lung base is no longer seen. Continued follow-up to clearing of findings is recommended to exclude underlying malignancy. XR/XR chest 2V IMPRESSION: 1. Significant improvement in left lower lobe consolidation and cavitary region. 2. COPD.
== END 2023-10-15 08:26 | disposition home or self-care (01) ==
LOC: HO.HMGCX 08:25
PROVIDERS: PCP Nurse Practitioner Family; Visit Provider Nurse Practitioner Family
DX: J18.9 Pneumonia, unspecified organism (principal)
CPT/HCPCS: 71046

== ENCOUNTER 2024-03-31 08:13 | Outpatient (AMB) | payer MEDICARE, SELFPAY ==
[2024-03-31 08:45] VITALS: BP 122/70; PULSE 73; TEMP 36.9; O2SAT 93; BMI 19.1
--- NOTE | 2024-03-31 08:45 | AM.OFFWIN_ITS ---
Intake Vital Signs 03/31/24 08:45 Height 5 ft 7 in Weight 122 lb BMI 19.1 BP 122/70 Blood Pressure Location Rt brachial Position Sitting Pulse 73 Pulse Source Pulse Oximeter Temp 98.4 F Temp Source Oral Pulse Oximetry (%) 93 Oxygen Delivery Method Room Air Intake Visit Reasons: EP headache chest congestion fatigue Intake Note: Pt is here for headache, chest congestion with fatigue Patient Tobacco Use Status: Current everyday Tobacco user Allergies bee venom protein (honey bee) Allergy (Severe, Verified 03/31/24 08:50) Anaphylaxis Medication List - Last Reconciled 03/31/24 by Claire Sawyer NP albuterol sulfate 90 mcg/actuation (ProAir HFA) 2 inhalations inhalation Q8H PRN 90 days amlodipine 10 mg PO DAILY 90 days azithromycin For 250 mg dose pack: take 500 mg today (day 1), then 250 mg for 4 days (days 2-5) PO fluticasone furoate-vilanterol 200-25 mcg/dose (Breo Ellipta) 1 inh inhalation Q24H 90 days umeclidinium 62.5 mcg/actuation (Incruse Ellipta) 1 inh inhalation DAILY Do you need a note to return to daycare/school/sports/work: No HPI EP headache chest congestion fatigue HPI Details This note is constructed using voice recognition software. While every effort has been made to ensure accuracy, [facility] [place] errors may have been included. 69-year-old male patient presents with 6 day history of cough, congestion, thick green secretions. He also notes that he has body aches throughout. Not had any fever, chills. He is dyspneic at baseline, not worse than his normal. He does have a longstanding history of COPD as well as arthritis, and does feel that the body aches are slightly more than his baseline. He has not been around any other sick contacts. He was tested for COVID multiple times at home which has been negative. He also notes a history pneumonia x2, where he had waited too long after onset of URI before being treated. He wishes to be seen sooner than his normal wait time. [facility] Medical History Tubular adenoma of colon (~2021) HTN (hypertension) COPD (chronic obstructive pulmonary disease) Nicotine dependence, cigarettes, uncomplicated History of basal cell cancer Surgical History History of colonoscopy History of tonsillectomy History of hernia repair History of hand surgery History of knee surgery History of basal cell carcinoma excision Social History Housing: House Patient Tobacco Use Status: Current everyday Tobacco user Tobacco use type: Cigarette Cigarette Packs Per Day: 1 Years Smoked: onset 18yo, 1ppd x 50yrs, 50pyh) e-Cigarette/Vaping Use: Never Used Second Hand Smoke Exposure: No service: Yes Current occupational status: employed Current occupation: [employer] Current occupational exposures/hazards: Yes Cognitive needs: No Hearing needs: No Vision needs: No Review of Systems Const All systems reviewed & are unremarkable except as noted in HPI and below Physical Exam Vital Signs: Last Vital Signs Temp 98.4 F 03/31/24 08:45 Pulse 73 03/31/24 08:45 BP 122/70 03/31/24 08:45 Pulse Ox 93 03/31/24 08:45 Oxygen Delivery Method Room Air 03/31/24 08:45 BMI result Body Mass Index 19.1 Const General: cooperative, healthy appearing, comfortable and no acute distress Orientation/consciousness: patient oriented x3 Limitations: no limitations HEENT Head: Yes normal to inspection Ears: hearing grossly normal bilaterally, external ears normal and TM's normal bilaterally General nose exam: Normal external nose present, Normal nares present and No nasal discharge present Face and sinus: Yes normal facial exam and Yes sinuses nontender Mouth: Normal oral and palatal mucosa present and moist mucous membranes Throat: Yes tonsils normal, Yes uvula midline and Yes posterior oropharynx abnormal (Erythema) Eyes General: appearance normal, both eyes and all related structures Neck Neck: Yes normal visual inspection Resp Effort & Inspection: normal respiratory effort, able to speak in complete sentences, Actively coughing, no respiratory distress, not tachypneic, no tripod positioning and no use of accessory muscles Auscultation: rhonchi (clears with cough) upper bilaterally Cardio Jugular venous distension: no JVD Rate: regular rate Rhythm: regular rhythm Heart sounds: S1 normal heart sound present, S2 normal heart sound present, no c lick, no gallops, no murmurs and no rubs Skin General skin exam: no rashes or lesions noted, elasticity normal and turgor normal Neuro General: patient oriented x3 Extrem General: Yes normal to inspection and Yes no clubbing, cyanosis or edema Assessment & Plan Assessment & Plan (1) COPD exacerbation: Code(s): J44.1 - Chronic obstructive pulmonary disease with (acute) exacerbation Plan: Advised ongoing use at home COPD maintenance medication. Antimicrobials prescribed for coverage of COPD exacerbation. Advised follow-up with any worsening including shortness of breath. Elected not to test for COVID or flu given time now and since onset, would not be appropriate treatment for antimicrobials. Given symptoms advised to wear mask and use appropriate hand hygiene to avoid spread of infection that likely contributed to exacerbation. Plan See above for full details and plan. Medications: New azithromycin For 250 mg dose pack: take 500 mg today (day 1), then 250 mg for 4 days (days 2-5) PO 6 tabs 0RF Coding Level of Care Code Est Pt Level 4 (57951) Diagnoses COPD exacerbation J44.1
== END 2024-03-31 09:17 | disposition home or self-care (01) ==
PROVIDERS: PCP Nurse Practitioner Family; Visit Provider Registered Nurse
DX: J44.1 Chronic obstructive pulmonary disease with (acute) exacerbation (principal)
CPT/HCPCS: 99214

== ENCOUNTER 2024-04-30 08:19 | Outpatient (REF) | payer MEDICARE, SELFPAY ==
--- NOTE | ~2024-04-30 | XR_ITS ---
EXAMINATION: XR CHEST CLINICAL INFORMATION: Elevated white cell count COMPARISON: Prior chest radiograph 10/15/2023 TECHNIQUE: 2 views of the chest were obtained. FINDINGS: Abnormal. New from the prior study is a large consolidation or mass, at 5.0 x 5.4 cm, and what appears to be the superior segment of the right lower lobe superimposed upon the right hilum. This could reflect pneumonia or tumor. Follow-up after appropriate medical management is advised. If this consolidation or mass does not resolve, then chest CT is advised, with a consideration for tissue sampling. The lungs are hyperaerated consistent with emphysematous change. The left lung is grossly clear. Heart and pulmonary vessels are normal. The thoracic spine is kyphotic and spondylitic change noted but no fracture. XR/XR chest 2V IMPRESSION: Superior segment right lower lobe pneumonic consolidation versus neoplastic lung mass. Follow-up until complete resolution is advised.
[2024-04-30 10:22] LABS: Appearance Urine Clear; Color Urine Dark Yellow; Glucose Urine UA Negative (Negative); Leukocyte Esterase Urine Negative (Negative); Nitrite Urine Negative (Negative); PH 6.5 (5.0-9.0); Specific Gravity - Urine 1.015 (1.005-1.025); UMIC TRIGGER UACC YES; Urine Blood Negative (Negative); Urine Ketones Trace mg/dL (Negative); Urine Protein 30 (1+) mg/dL (Neg-Trace)
[2024-04-30 10:41] LABS: Bacteria Urine None Seen (None Seen); Hyaline Casts Urine 0-2 /LPF (0-2); RBC Urine 0-2 /HPF (0-2); Squamous Epithelial Cell Urine 0-2 /HPF (0-2); WBC Urine 0-5 /HPF (0-5)
[2024-04-30 11:22] LABS: Basophils Absolute Auto 0.2 X10*3/uL (0.0-0.2); Eosinophils Absolute Auto 0.3 X10*3/uL (0.0-0.4); Eosinophils Percent Auto 1.4 % (0-4); Hematocrit 39.4 % (42.0-52.0); Hemoglobin 13.1 g/dl (14.0-18.0); Imm Gran Abs Auto 0.38 X10*3/uL (0.00-0.03); Imm Gran Pct Auto 1.7 % (0.0-0.4); Lymphocytes Absolute Auto 1.6 X10*3/uL (1.2-4.9); Lymphocytes Percent Auto 6.9 % (20-40); MANUAL DIFF FLAG SCAN; Mean Corpuscular HGB Conc 33.2 g/dl (31.0-36.0); Mean Corpuscular Volume 90.2 fL (80.0-98.0); Mean Platelet Volume 9.3 fL (9.4-12.4); Monocytes Percent Auto 8.8 % (2-11); Neutrophils Absolute Auto 18.4 x10*3/uL (2.0-8.3); Neutrophils Percent Auto 80.2 % (45-73); Platelet Count 584 X10*3/uL (160-400); Red Blood Count 4.37 X10*6/uL (4.60-5.80); SCAN SMEAR FLAG 1; White Blood Count 22.9 X10*3/uL (4.8-10.8)
[2024-04-30 11:44] LABS: SLIDE REVIEW VERIFIED
[2024-04-30 11:57] LABS: Alanine Aminotransferase 8 U/L (0-40); Albumin Level 3.3 g/dL (3.5-5.0); Alkaline Phosphatase 130 U/L (39-117); Anion Gap 14 (12-20); Aspartate Amino Transferase 16 U/L (5-37); Bilirubin Total 0.5 mg/dL (0.0-1.0); Blood Urea Nitrogen 7 mg/dL (9-16); Carbon Dioxide 26 mmol/L (22-29); Chloride 96 mmol/L (96-108); Cholesterol 119 mg/dL (<200); Estimated Glomerular Filt Rate > 60; Glucose Fasting 92 mg/dL (60-99); HDL Cholesterol 48 mg/dL (>40); LDL Cholesterol Calculated 57 mg/dL (<100); Potassium 4.5 mmol/L (3.3-5.1); Sodium 131 mmol/L (135-145); Total Protein 6.8 g/dL (6.5-8.0); Triglycerides 70 mg/dL (<150)
[2024-04-30 12:01] LABS: TSH reflex Free T4 1.28 uIU/mL (0.32-4.0)
== END 2024-04-30 08:20 | disposition home or self-care (01) ==
LOC: HO.HMGCX 08:19
PROVIDERS: PCP Nurse Practitioner Family; Visit Provider Nurse Practitioner Family
DX: R05.9 Cough, unspecified (principal); I10 Essential (primary) hypertension; D72.829 Elevated white blood cell count, unspecified; Z00.00 Encounter for general adult medical examination without abnormal findings
CPT/HCPCS: 36415; 71046; 80053; 80061; 81001; 84443; 85025

== ENCOUNTER 2024-04-30 14:48 | Outpatient (AMB) | payer MEDICARE, SELFPAY ==
[2024-04-30 14:50] VITALS: BP 142/70; PULSE 73; O2SAT 94; BMI 19.3
--- NOTE | 2024-04-30 14:50 | A.OFFPC_ITS ---
Vital Signs 04/30/24 14:50 Height 5 ft 7 in Weight 123 lb BMI 19.3 BP 142/70 H Blood Pressure Location Rt brachial Position Sitting Pulse 73 Pulse Source Pulse Oximeter Pulse Oximetry (%) 94 Oxygen Delivery Method Room Air Intake Visit Reasons: Cough, fatigue x 5 weeks Intake Note: pt is here for follow up from cough, fatigue ongoing for 5 weeks Charity Fundraiser Required: No Accompanied by: Self / Same As Patient Allergies bee venom protein (honey bee) Allergy (Severe, Verified 04/30/24 15:58) Anaphylaxis Medication List - Last Reconciled 04/30/24 by INESSA Jacobsen- albuterol sulfate 90 mcg/actuation (ProAir HFA) 2 inhalations inhalation Q8H PRN 90 days amlodipine 10 mg PO DAILY 90 days amoxicillin-pot clavulanate 875-125 mg 1 tab PO BID 10 days doxycycline hyclate 100 mg PO BID 10 days fluticasone furoate-vilanterol 200-25 mcg/dose (Breo Ellipta) 1 inh inhalation Q24H 90 days umeclidinium 62.5 mcg/actuation (Incruse Ellipta) 1 inh inhalation DAILY Tobacco use date assessed: 04/30/24 Fall risk assessment: No Falls in past year Last assessed Fall Risk: 04/30/24 Dental Screening Dental Screen Date: 04/30/24 Did you have a dental visit in the last 12 months?: Yes Did you have a dental problem in the last 6 months where you did not have access to dental care?: No Was dental information given to patient?: Patient has dentist HPI Cough, fatigue x 5 weeks HPI Details Pt was seen in the walk-in on 03/31 with cough, congestion, and body aches. He was given a zpak. Pt reports ongoing cough and fatigue. Pt's WBCs, platelets, and neutrophils were elevated. Will order chest XR. Will send augmentin and doxycycline. Denies fever, chills, and chest pain. Will do an EKG in office today due to tachycardia. PT IS A LONG TIME SMOKER, gets yearly CT scans. [facility] Medical History Tubular adenoma of colon (~2021) HTN (hypertension) COPD (chronic obstructive pulmonary disease) Nicotine dependence, cigarettes, uncomplicated History of basal cell cancer Surgical History History of colonoscopy History of tonsillectomy History of hernia repair History of hand surgery History of knee surgery History of basal cell carcinoma excision Social History Housing: House Patient Tobacco Use Status: Current everyday Tobacco user Tobacco use type: Cigarette Cigarette Packs Per Day: 1 Years Smoked: onset 18yo, 1ppd x 50yrs, 50pyh) Packs Per Year: 0 e-Cigarette/Vaping Use: Never Used Second Hand Smoke Exposure: No service: Yes Current occupational status: employed Current occupation: [employer] Current occupational exposures/hazards: Yes Cognitive needs: No Hearing needs: No Vision needs: No Questionnaire PHQ-9 Over the last 2 weeks, how often have you been bothered by any of the following problems? 1. Little interest or pleasure in doing things: not at all 2. Feeling down, depressed, or hopeless: not at all 3. Trouble falling or staying asleep, or sleeping too much: not at all 4. Feeling tired or having little energy: several days 5. Poor appetite or overeating: not at all 6. Feeling bad about yourself - or that you are a failure or have let yourself or your family down: not at all 7. Trouble concentrating on things, such as reading the newspaper or watching television: not at all 8. Moving or speaking so slowly that other people could have noticed. Or the opposite - being so fidgety or restless that you have been moving around a lot more than usual: not at all 9. Thoughts that you would be better off or of hurting yourself in some way: not at all Total score: 1 Depression Screening Interpretation: Negative Depression Screening Done: Yes 83960 - PHQ-9 Billing: Yes Source: Developed by Drs. Jesse Moscoso, Maryan Cooper, Keith Villatoro and colleagues, with an educational harriett from [employer]. Thrive Questionnaire Date Thrive assessed: 04/30/24 I am a: Patient What is your living situation today?: I have a steady place to live Within the past 12 months, did the food you bought not last and you didn't have the money to get more?: Never true Within the past 12 months, did you worry whether your food would run out before you got money to buy more?: Never true Do you have trouble paying for medicines?: No Do you have trouble getting transportation to medical appointments?: No Do you have trouble paying your heating and electricity bill?: No Do you have trouble taking care of your child, family member or friend?: No Do you have trouble with day-to-day activities such as bathing, preparing meals, shopping, managing finances, etc.?: No Are you currently unemployed and looking for a job?: No Are you interested in more education?: No Please select the resources that you would like help with: Housing/Care Home Currently or been in a relationship where the following occur: I choose not to answer THRIVE Score: 0 AUDIT C Alcohol Use Questionnaire (AUDIT-C) 1. How often do you have a drink containing alcohol?: 2-3 times a week 2. How many drinks containing alcohol do you have on a typical day when you are drinking?: 1 or 2 3. How often do you have six or more drinks on one occasion?: Never Total Score: 3 Score Reviewed/Action Taken: Yes YONI-7 AMB Questionnaire YONI-7 Date YONI - 7 assessed: 04/30/24 Feeling nervous, anxious, or on edge: 0 = Not at all Not being able to stop or control worryin = Not at all Worrying too much about different things: 0 = Not at all Trouble relaxin = Not at all Being so restless that it is hard to sit still: 0 = Not at all Becoming easily annoyed or irritable: 0 = Not at all Feeling afraid as if something awful might happen: 0 = Not at all Total YONI-7 score (0-4 normal; 5-9 mild; 10-14 moderate; 15-21 severe): 0 Source: Developed by Drs. Jesse Moscoso, Maryan Cooper, Keith Villatoro and colleagues, with an educational harriett from [employer]. YONI-7 Assessment Billing YONI-7 Assessment Tool: YONI-7 Assessment 88018 Review of Systems Const Reports as per HPI Physical exam (Primary Care) Vital Signs: Last Vital Signs Pulse 73 04/30/24 14:50 BP 142/70 H 04/30/24 14:50 Pulse Ox 94 04/30/24 14:50 Oxygen Delivery Method Room Air 04/30/24 14:50 BMI result Body Mass Index 19.3 Tobacco/Smoking Status: Tobacco use Status Tobacco use date assessed 04/30/24 04/30/24 14:51 Patient Tobacco Use Status Current everyday Tobacco 04/30/24 14:51 Tobacco use type Cigarette 04/30/24 14:51 e-Cigarette/Vaping Use Never Used 04/30/24 14:51 PHQ-9: PHQ-9 Score PHQ-9: Total score 1 04/30/24 15:02 Depression Screening Interpretation: Negative Thrive Assessment: Date of Thrive Assessment Date Thrive assessed 04/30/24 04/30/24 14:51 Currently or been in a relationship where the following occur: I choose not to answer Const General: cooperative Orientation/consciousness: patient oriented x3 Resp Other: scattered coarse wheezes Effort & Inspection: normal respiratory effort Cardio Rate: tachycardic Rhythm: regular rhythm Heart sounds: S1 normal heart sound present and S2 normal heart sound present Neuro General: patient oriented x3 Psych Appearance: grossly normal Mental Status: mental status grossly normal Speech and movement: Normal speech and movement present Affect: normal affect Attitude: cooperative Thought process: Normal thought process present Thought content: Normal thought content present Insight: Good insight present (Psych) Judgement: Good judgement present (Psych) Assessment and Plan Assessment & Plan (1) Leukocytosis: Code(s): D72.829 - Elevated white blood cell count, unspecified Plan: Chest XR ordered, augmentin and doxycycline sent (2) Cough: Code(s): R05.9 - Cough, unspecified Plan: Chest XR ordered, augmentin and doxycycline sent (3) Tachycardia: Code(s): R00.0 - Tachycardia, unspecified Plan: EKG done in office Plan The patient agreed to the use of a medical genetics director for this encounter. Scribed for ROMULO Sinclair by Mikki Herron medical genetics director, on 04/30/2024 at 15:00 EST. Orders: Orders AMB EKG-In Office Today R00.0 - Tachycardia, unspecified XR chest 2V Today D72.829 - Elevated white blood cell count, unspecified, R05.9 - Cough, unspecified Medications: New doxycycline hyclate 100 mg PO BID 20 tabs 0RF 10 days amoxicillin-pot clavulanate 875-125 mg 1 tab PO BID 20 tabs 0RF 10 days Coding Level of Care Code Est Pt Level 3 (90000) Diagnoses Leukocytosis D72.829 Cough R05.9 Tachycardia R00.0 Additional Codes YONI-7 Assessment Billing - YONI-7 Assessment Tool: YONI-7 Assessment 61811 ([id number])
== END 2024-04-30 15:38 | disposition home or self-care (01) ==
PROVIDERS: PCP Nurse Practitioner Family; Visit Provider Nurse Practitioner Family
DX: D72.829 Elevated white blood cell count, unspecified (principal); R05.9 Cough, unspecified; R00.0 Tachycardia, unspecified
CPT/HCPCS: 99214

== ENCOUNTER 2024-05-27 10:13 | Outpatient (REF) | payer MEDICARE, SELFPAY ==
--- NOTE | ~2024-05-27 | XR_ITS ---
EXAMINATION: XR CHEST CLINICAL INFORMATION: Elevated white count. COMPARISON: April 30, 2024, October 15, 2003, and September 29, 2023 as well as January 17, 2022. TECHNIQUE: 2 views of the chest were obtained. FINDINGS: There remains some scarring within the left lower lobe with resolution of majority of parenchymal disease seen with air-fluid level on older studies. There is now prominence of the right hilum which appears improved from study of April 30, 2024 but was not present on studies of September 2023. This may represent hilar lymphadenopathy. Heart normal size. No pneumothorax or significant pleural effusion. There is some blunting of the right costophrenic angle which is chronic. XR/XR chest 2V IMPRESSION: Residual left lower lobe scarring. Prominence of the right hilum which may be related to lymphadenopathy. CT of the chest with IV contrast would be of help in further evaluation. Electronically signed by: Trent Nieto MD 06/12/2024 09:54 AM EDT
== END 2024-05-27 10:14 | disposition home or self-care (01) ==
LOC: HO.HMGCLDS 10:13
PROVIDERS: PCP Nurse Practitioner Family; Visit Provider Nurse Practitioner Family
DX: D72.829 Elevated white blood cell count, unspecified (principal); J18.9 Pneumonia, unspecified organism
CPT/HCPCS: 71046

== ENCOUNTER 2024-07-14 12:47 | Outpatient (REF) | payer MEDICARE, SELFPAY ==
--- NOTE | ~2024-07-14 | CT_ITS ---
EXAMINATION: CT LOW-DOSE SCREENING CHEST WITHOUT CONTRAST CLINICAL INFORMATION: Nicotine dependence, cigarettes, uncomplicated. The patient is a current smoker with a 50 pack-year history of smoking. Abnormal right hilum on recent chest x-ray. COMPARISON: X-ray chest May 27, [address] chest July 13, 2023. TECHNIQUE: Multidetector volumetric CT imaging of the chest is performed on a Siemens SOMATOM Definition scanner without contrast using low dose technique. Additional 2D coronal and sagittal reformatted images and axial 3D maximum intensity projection (MIP) images are generated on the CT workstation. This CT examination was performed using dose optimization techniques as appropriate, variously including the following: *Automated exposure control *Adjustment of mA and/or kV according to patient size (this includes techniques or standardized protocols for targeted exams where dose is matched to indication/reason for exam; i.e. extremities or head) *Use of iterative reconstruction technique TOTAL EXAM DLP: 37 mGy-cm. CTDIvol: 1.04 mGy. FINDINGS: PULMONARY NODULES: -There are a few scattered tiny granulomata. -There are a few scattered stable and unchanged pulmonary nodules measuring up to 3 mm. -6 mm stable pleural-based nodule in the lateral superior segment left lower lobe (series 5, image 141). -Increasing subpleural left lower lobe nodule measuring 7 x 6 mm in diameter (previously 5 x 3 mm; series 5 image 259). This is mildly suspicious. -No additional new or enlarging nodule. LUNGS: -There is at least moderate and likely moderate to severe centrilobular emphysema. -There is new cicatrization appearing atelectasis/consolidation involving the superior segment right lower lobe with mild retractile features and distortion of the abutting major fissure and parenchyma. There is also a new focus of linear scarring in the superior segment left lower lobe. Minimal stellate scarring is present in the medial aspect of the left upper lobe anterior apical segment. -There are mild reticulonodular opacities in the medial anterior right upper lobe, slightly worsening from previous. These are nonspecific. -There is diffuse mild bronchial wall thickening suggesting chronic bronchitis. Minimal cylindrical bronchiectasis present in the bilateral lower lobes. -Central airways are patent. -No endobronchial filling defect. -No effusions or pleural masses. No pneumothorax. -No evidence of interstitial lung disease. MEDIASTINUM: -Thyroid is normal. -N aorta is mildly ectatic at 3.9 cm. Aorta is otherwise normal in course and caliber with moderate atheromatous calcification. -Main pulmonary artery is prominent suggesting some degree of pulmonary hypertension. -There is no mediastinal or hilar lymphadenopathy. Specifically, there are no right hilar abnormalities. -Heart size is normal. No pericardial effusion. CORONARY ARTERY CALCIFICATION: Moderate to heavy three-vessel coronary calcification. CHEST WALL/AXILLA: No masses or abnormal lymph nodes. UPPER ABDOMEN: Included portions of the solid organs in the upper abdomen unremarkable on noncontrast imaging. OSSEOUS STRUCTURES: No suspicious focal findings. -There is an exaggerated thoracic kyphosis with mild spondylosis. CT/CT lung screening IMPRESSION: 1. Moderate to severe centrilobular emphysema. 2. No right hilar mass or adenopathy. Abnormality on chest x-ray was related to new retractile cicatrization type atelectasis in the superior segment right lower lobe. 3. Additional foci of scarring has developed in the medial left lower lobe, and anteromedial left upper lobe. 4. Slightly enlarging left lower lobe subpleural lung nodule, currently measuring an average diameter of 7 mm, previously 4 mm. This is a suspicious abnormality, and short interval follow-up recommended. 5. Otherwise, there are stable scattered lung nodules measuring up to 6 mm in the superior segment left lower lobe. 6. There is no lymphadenopathy. 7. There is diffuse small airway thickening suggesting chronic bronchitis. 8. Additional ancillary findings as discussed in the body of the report. ASSESSMENT: 1. Lung-RADS Category 4A: Suspicious findings. 3 month interval follow-up CT recommended. 2. Lung-RADS Category S: Negative. There are no clinically significant or potentially clinically significant findings not related to the lungs requiring urgent additional evaluation. RECOMMENDATION: A 3-month follow up low-dose lung CT scan is recommended. An order for CT LUNG CANCER SCREENING SHORT INTERVAL FOLLOWUP ([id number]) can be placed. Electronically signed by: Frandy Bermeo MD 08/05/2024 01:19 PM [facility] [place]
== END 2024-07-14 12:48 | disposition home or self-care (01) ==
LOC: HO.CT 12:47
PROVIDERS: PCP Nurse Practitioner Family; Visit Provider Physician Assistant Medical
DX: Z12.2 Encounter for screening for malignant neoplasm of respiratory organs (principal); F17.210 Nicotine dependence, cigarettes, uncomplicated
CPT/HCPCS: 71271

== ENCOUNTER → 2024-07-14 12:49 | Outpatient (BNV) | payer MEDICARE, SELFPAY | PROVIDERS: PCP Nurse Practitioner Family; Visit Provider Radiology Diagnostic Radiology | DX: Z12.2 Encounter for screening for malignant neoplasm of respiratory organs (principal); F17.210 Nicotine dependence, cigarettes, uncomplicated | CPT/HCPCS: 71271 ==

== ENCOUNTER 2024-08-18 13:26 | Outpatient (AMB) | payer MEDICARE, SELFPAY ==
--- NOTE | 2024-08-18 13:29 | MHC.OFFVIS ---
Vital Signs 08/18/24 13:31 Height 5 ft 7 in Weight 131 lb 2.801 oz BMI 20.5 BP 172/86 H Blood Pressure Location Rt brachial Position Sitting Pulse 73 Pulse Source Pulse Oximeter Pulse Oximetry (%) 98 Oxygen Delivery Method Room Air Intake Visit Reasons: Pneumonia Allergies bee venom protein (honey bee) Allergy (Severe, Verified 08/18/24 13:33) Anaphylaxis HPI HPI Pneumonia: Details: Mo is a pleasant 69 year old male, current smoker with 50 pyh, with underlying COPD, HTN and h/o basal cell carcinoma. He was referred by the lung cancer screening program after abnormal chest CT which came back as a 4A. His chest CT was suggestive of aspiration pneumonia and he was treated with Augmentin on 08/08/24, today is his last day of treatment. He reports 80% improvement overall, continues with productive cough with yellow sputum, mild chest congestion, wheezing and dyspnea. Prior to that he was treated for URI 03/31 with a zpak and 04/30 with doxycyline and Augmentin. He is suboptimally controlled on Breo and Incruse using albuterol 4 times per day. He does not have a nebulizer. He was previously on symbicort and spiriva with good effect however insurance no longer covers. He does note recurrent URI since a child, never had an immune work up. He denies h/o asthma. He continues to smoke 1 ppd and not ready to quit. He has tried hypnosis and Chantix (nausea,SI) in the past. He reports multiple occupational exposures, including asbestos working in construction x 30 years. He reports father, smoker, with COPD. He reports mild seasonal allergies. He is under the care of [facility] for multiple basal cell carcinomas, q6 month skin checks. [facility] Medical History (Updated 08/18/24 @ 13:48 by Lore Rich NP) Ectatic aorta Tubular adenoma of colon (~2021) HTN (hypertension) COPD (chronic obstructive pulmonary disease) Nicotine dependence, cigarettes, uncomplicated History of basal cell cancer Surgical History History of colonoscopy History of tonsillectomy History of hernia repair History of hand surgery History of knee surgery History of basal cell carcinoma excision Social History Housing: House Patient Tobacco Use Status: Current everyday Tobacco user Tobacco use type: Cigarette Cigarette Packs Per Day: 1 Years Smoked: onset 18yo, 1ppd x 50yrs, 50pyh) e-Cigarette/Vaping Use: Never Used Second Hand Smoke Exposure: No service: Yes Current occupational status: employed Current occupation: [employer] Current occupational exposures/hazards: Yes Cognitive needs: No Hearing needs: No Vision needs: No Review of Systems Const Denies chills, Denies excessive sweating, Denies fever(s), Denies headache(s) and Denies night sweats Eyes Denies dry eyes, Denies irritation and Denies itchy eyes ENT Reports Normal hearing present, Denies headache(s), Denies nasal congestion, Denies nasal discharge, Denies post nasal drip and Denies sore throat Card Denies chest pain, Denies chest pain at rest, Denies chest pain with activity, Denies claudication, Denies leg edema, Denies dyspnea, Denies orthopnea and Denies paroxysmal nocturnal dyspnea Resp Denies excessive phlegm production, Denies pain on inspiration, Denies pain with cough, Denies dyspnea and Denies stridor Musc Denies myalgias Neuro Reports Normal hearing present and Denies headache(s) Endo Denies excessive sweating Paco/Lymph Denies lymphadenopathy Aller/Immun Denies itchy eyes and Denies seasonal rhinorrhea Physical Exam Vital Signs: Last Vital Signs Pulse 73 08/18/24 13:31 BP 172/86 H 08/18/24 13:31 Pulse Ox 98 08/18/24 13:31 Oxygen Delivery Method Room Air 08/18/24 13:31 BMI result Body Mass Index 20.5 Const General: cooperative, healthy appearing, comfortable, no acute distress, well developed and alert Orientation/consciousness: patient oriented x3 Limitations: no limitations HEENT Head: Yes normal to inspection, Yes normocephalic and Yes atraumatic Ears: hearing grossly normal bilaterally and external ears normal Eyes General: appearance normal, both eyes and all related structures Eyelids: Yes eyelids normal Sclerae: sclerae normal EOM: EOMs intact bilaterally Neck Neck: Yes normal visual inspection and Yes no lymphadenopathy Lymphatic: no lymphadenopathy noted Chest Chest palpation & inspection: normal inspection of the chest Resp Other: expiratory wheezes throughout improved with duoneb, diminished bases Effort & Inspection: normal respiratory effort, able to speak in complete sentences, no audible wheezes, no cough, no stridor, not tachypneic, no tripod positioning and no use of accessory muscles Cardio Jugular venous distension: no JVD Rate: regular rate Rhythm: regular rhythm Skin Other: warm, dry General skin exam: no rashes or lesions noted Neuro General: patient oriented x3 Cranial nerves: Yes Normal hearing present Cognition (Neuro): normal cognition Gait exam (Neuro): Normal gait present Extrem General: Yes normal to inspection, Yes capillary refill normal, Yes no clubbing, cyanosis or edema and Yes no pedal edema Psych Appearance: grossly normal and well kempt Speech and movement: Normal speech and movement present and Clear speech present Affect: normal affect Attitude: cooperative Thought process: Normal thought process present Thought content: Normal thought content present Insight: Good insight present (Psych) Judgement: Good judgement present (Psych) Office Procedures Nebulizer Treatment Nebulizer Treatment [id number]/MDI RX initial, or Nebulizer Subsequent Treatment Office Meds ipratropium 0.5 mg-albuterol 3 mg (2.5 mg base)/3 mL nebulization soln Performing Provider: Lore Rich NP Performing Location: [facility] Administered by: Antoinette Pack LPN on 08/18/24 14:36 Dose Route Admin Location Dispensed Lot Number Expiration Date [facility] [employer] 3 mL inhalation 3 mL [id number] 12/22/25 [id number] [employer] Results Reviewed Results Reviewed: [address] [address] [address] Scan Report Signed Patient: Mo Heredia MR#: [id number] : 1955 Acct:[id number] Age/Sex: 69 / M ADM Date: 07/14/24 Loc: HO.CT Attending Dr: Holly Steiner PA-C Ordering Physician: Holly Steiner PA-C Date of Service: 07/14/24 Procedure(s): CT lung screening Accession Number(s): [id number] cc: Mert Brewer-; Holly Steiner PA-C~ EXAMINATION: CT LOW-DOSE SCREENING CHEST WITHOUT CONTRAST CLINICAL INFORMATION: Nicotine dependence, cigarettes, uncomplicated. The patient is a current smoker with a 50 pack-year history of smoking. Abnormal right hilum on recent chest x-ray. COMPARISON: X-ray chest May 27, [address] chest July 13, 2023. TECHNIQUE: Multidetector volumetric CT imaging of the chest is performed on a Siemens SOMATOM Definition scanner without contrast using low dose technique. Additional 2D coronal and sagittal reformatted images and axial 3D maximum intensity projection (MIP) images are generated on the CT workstation. This CT examination was performed using dose optimization techniques as appropriate, variously including the following: *Automated exposure control *Adjustment of mA and/or kV according to patient size (this includes techniques or standardized protocols for targeted exams where dose is matched to indication/reason for exam; i.e. extremities or head) *Use of iterative reconstruction technique TOTAL EXAM DLP: 37 mGy-cm. CTDIvol: 1.04 mGy. FINDINGS: PULMONARY NODULES: -There are a few scattered tiny granulomata. -There are a few scattered stable and unchanged pulmonary nodules measuring up to 3 mm. -6 mm stable pleural-based nodule in the lateral superior segment left lower lobe (series 5, image 141). -Increasing subpleural left lower lobe nodule measuring 7 x 6 mm in diameter (previously 5 x 3 mm; series 5 image 259). This is mildly suspicious. -No additional new or enlarging nodule. LUNGS: -There is at least moderate and likely moderate to severe centrilobular emphysema. -There is new cicatrization appearing atelectasis/consolidation involving the superior segment right lower lobe with mild retractile features and distortion of the abutting major fissure and parenchyma. There is also a new focus of linear scarring in the superior segment left lower lobe. Minimal stellate scarring is present in the medial aspect of the left upper lobe anterior apical segment. -There are mild reticulonodular opacities in the medial anterior right upper lobe, slightly worsening from previous. These are nonspecific. -There is diffuse mild bronchial wall thickening suggesting chronic bronchitis. Minimal cylindrical bronchiectasis present in the bilateral lower lobes. -Central airways are patent. -No endobronchial filling defect. -No effusions or pleural masses. No pneumothorax. -No evidence of interstitial lung disease. MEDIASTINUM: -Thyroid is normal. -N aorta is mildly ectatic at 3.9 cm. Aorta is otherwise normal in course and caliber with moderate atheromatous calcification. -Main pulmonary artery is prominent suggesting some degree of pulmonary hypertension. -There is no mediastinal or hilar lymphadenopathy. Specifically, there are no right hilar abnormalities. -Heart size is normal. No pericardial effusion. CORONARY ARTERY CALCIFICATION: Moderate to heavy three-vessel coronary calcification. CHEST WALL/AXILLA: No masses or abnormal lymph nodes. UPPER ABDOMEN: Included portions of the solid organs in the upper abdomen unremarkable on noncontrast imaging. OSSEOUS STRUCTURES: No suspicious focal findings. -There is an exaggerated thoracic kyphosis with mild spondylosis. CT/CT lung screening IMPRESSION: 1. Moderate to severe centrilobular emphysema. 2. No right hilar mass or adenopathy. Abnormality on chest x-ray was related to new retractile cicatrization type atelectasis in the superior segment right lower lobe. 3. Additional foci of scarring has developed in the medial left lower lobe, and anteromedial left upper lobe. 4. Slightly enlarging left lower lobe subpleural lung nodule, currently measuring an average diameter of 7 mm, previously 4 mm. This is a suspicious abnormality, and short interval follow-up recommended. 5. Otherwise, there are stable scattered lung nodules measuring up to 6 mm in the superior segment left lower lobe. 6. There is no lymphadenopathy. 7. There is diffuse small airway thickening suggesting chronic bronchitis. 8. Additional ancillary findings as discussed in the body of the report. ASSESSMENT: 1. Lung-RADS Category 4A: Suspicious findings. 3 month interval follow-up CT recommended. 2. Lung-RADS Category S: Negative. There are no clinically significant or potentially clinically significant findings not related to the lungs requiring urgent additional evaluation. RECOMMENDATION: A 3-month follow up low-dose lung CT scan is recommended. An order for CT LUNG CANCER SCREENING SHORT INTERVAL FOLLOWUP ([id number]) can be placed. Electronically signed by: Frandy Bermeo MD 08/05/2024 01:19 PM [facility] Dictated By: Frandy Bermeo MD Signed By: <Electronically signed by Frandy Bermeo MD in OV> 08/05/24 131 DD/ 1303 TD/TT: 07/14/24 1308 Technical Training Specialist: Assessment & Plan Assessment & Plan (1) COPD (chronic obstructive pulmonary disease): Code(s): J44.9 - Chronic obstructive pulmonary disease, unspecified Category: Medical (2) Nicotine dependence, cigarettes, uncomplicated: Comment: (current smoker - onset 18yo, 1ppd x 50yrs, 50pyh) Code(s): F17.210 - Nicotine dependence, cigarettes, uncomplicated Category: Medical (3) Pneumonia: Code(s): J18.9 - Pneumonia, unspecified organism Category: Medical (4) Recurrent respiratory infection: Code(s): J98.8 - Other specified respiratory disorders Category: Medical Plan Patient reports significant improvement with Augmentin for aspiration pneumonia. Advised to call if symptoms worsen and will send for sputum. On exam patient with expiratory wheezes throughout, resolving with duoneb. Will send nebulizer for home use and duoneb to mail in pharmacy. Will also send for PFT to assess severity of COPD. He has a repeat chest CT scheduled in September to assess resolution of PNA. Discussed importance of smoking cessation however he is not ready to quit. Will send to assess for immunodeficiencies given recurrent URI. All questions were answered and patient is in agreement of plan. Will follow up to review results or sooner if needed. Orders: Orders PFT pulmonary function test Today J44.9 - Chronic obstructive pulmonary disease, unspecified Immunoglobulins,IgG IgA IgM Today J98.8 - Other specified respiratory disorders AMB Nebulizer Treatment Today J44.9 - Chronic obstructive pulmonary disease, unspecified Medications: New ipratropium-albuterol 0.5 mg-3 mg(2.5 mg base)/3 mL 3 mL inhalation Q6H PRN 180 mL 6RF wheezing Coding Level of Care Code New Pt Level 4 (89723) Diagnoses COPD (chronic obstructive pulmonary disease) J44.9 Nicotine dependence, cigarettes, uncomplicated F17.210 Pneumonia J18.9 Recurrent respiratory infection J98.8 CPT Codes Nebulizer Treatment - Nebulizer Treatment, initial or subsequent: [id number]/MDI RX initial, or Nebulizer Subsequent Treatment ([id number])
[2024-08-18 13:31] VITALS: BP 172/86; PULSE 73; O2SAT 98; BMI 20.5
== END 2024-08-18 14:27 | disposition home or self-care (01) ==
PROVIDERS: PCP Nurse Practitioner Family; Referring Provider Physician Assistant Medical; Visit Provider Nurse Practitioner Family
DX: J44.9 Chronic obstructive pulmonary disease, unspecified (principal); F17.210 Nicotine dependence, cigarettes, uncomplicated; J18.9 Pneumonia, unspecified organism; J98.8 Other specified respiratory disorders
CPT/HCPCS: 99204

== ENCOUNTER → 2024-08-18 13:26 | Outpatient (BNVA) | payer MEDICARE, SELFPAY | PROVIDERS: PCP Nurse Practitioner Family; Referring Provider Physician Assistant Medical; Visit Provider Nurse Practitioner Family | DX: J44.9 Chronic obstructive pulmonary disease, unspecified (principal); J18.9 Pneumonia, unspecified organism; J98.8 Other specified respiratory disorders; F17.210 Nicotine dependence, cigarettes, uncomplicated | CPT/HCPCS: 94640; 99202 ==

== ENCOUNTER 2024-08-19 11:02 | Outpatient (REF) | payer MEDICARE, SELFPAY ==
[2024-08-21 03:08] LABS: IgA 193 mg/dL (70-320); IgG 797 mg/dL (600-1540); IgM 96 mg/dL (50-300)
== END 2024-08-19 11:03 | disposition home or self-care (01) ==
LOC: HO.HMGCLDS 11:02
PROVIDERS: PCP Nurse Practitioner Family; Visit Provider Nurse Practitioner Family
DX: J98.8 Other specified respiratory disorders (principal)
CPT/HCPCS: 36415; 82784

== ENCOUNTER 2024-10-08 07:30 | Outpatient (AMB) | payer MEDICARE, SELFPAY ==
--- NOTE | 2024-10-08 07:31 | MHC.PC.OV ---
Vital Signs 10/08/24 07:40 Height 5 ft 7 in Weight 126 lb BMI 19.7 BP 144/60 H Blood Pressure Location Rt brachial Position Sitting Pulse 71 Pulse Source Pulse Oximeter Pulse Oximetry (%) 95 Oxygen Delivery Method Room Air Intake Visit Reasons: PE Intake Note: Pt is here today for his PE: Last colonoscopy 01/31/22 Allergies bee venom protein (honey bee) Allergy (Severe, Verified 08/18/24 13:33) Anaphylaxis Medication List - Last Reconciled 10/08/24 by VIVIANE JacobsenP- albuterol sulfate 90 mcg/actuation 2 inhalations inhalation Q8H PRN 90 days amlodipine 10 mg PO DAILY 90 days amoxicillin-pot clavulanate 875-125 mg 1 tab PO BID 10 days doxycycline hyclate 100 mg PO BID 10 days fluticasone furoate-vilanterol 200-25 mcg/dose (Breo Ellipta) 1 inh inhalation Q24H 90 days ipratropium-albuterol 0.5 mg-3 mg(2.5 mg base)/3 mL 3 mL inhalation Q6H PRN umeclidinium 62.5 mcg/actuation (Incruse Ellipta) 1 inh inhalation DAILY Tobacco use date assessed: 10/08/24 Fall risk assessment: No Falls in past year Last assessed Fall Risk: 10/08/24 Dental Screening Dental Screen Date: 10/08/24 Did you have a dental visit in the last 12 months?: No Did you have a dental problem in the last 6 months where you did not have access to dental care?: No Was dental information given to patient?: No HPI PE HPI Details History of Present Illness The patient is a 69-year-old male presenting for a physical examination and follow-up regarding pulmonary nodules. Previously, the patient was diagnosed with pneumonia, which has since resolved with treatment. He reports a marked improvement in symptoms post-treatment. He is an active smoker and is currently engaged with pulmonary specialists who have scheduled a repeat CT scan for further assessment of the pulmonary ailments. The patient denies experiencing chest pain, increased shortness of breath, nausea, vomiting, blood in stool, constipation, diarrhea, depression, anxiety, and suicidal or homicidal ideation. He is not interested in a digital rectal exam but will undergo a PSA test. HTN: reports at home his BP in 120s-130s systolically, randomly in the 140s. diastolically he is in the 60s. 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 Health Maintenance - Continuous engagement with pulmonary specialists for management of nodules. - Planned repeat CT scan for monitoring nodules. - PSA testing planned for prostate health monitoring. Social History - Active smoker. - Follow-up care being managed with pulmonary specialists. Review of Systems - Cardiovascular: Denies chest pain. - Respiratory: Denies increased shortness of breath; reports past resolution of pneumonia symptoms. - Gastrointestinal: Denies nausea, vomiting, blood in stool, constipation, diarrhea. - Psychiatric: Denies depression, anxiety, suicidal ideation, homicidal ideation. Physical Exam General: Cooperative, healthy appearing, comfortable, no acute distress and well developed, very skinny stature Orientation: Patient oriented x3 Limitations: No limitations Head: Normal to inspection Ears: Hearing grossly normal bilaterally Nose: Normal external nose present Face and sinus: Normal facial exam Eyes: Appearance normal, both eyes and all related structures Neck: Normal visual inspection and Yes full ROM Respiratory: Coarse diminished breath sounds throughout with scattered wheezes Cardiovascular: Regular rate and rhythm. Normal S1 and S2 GI: Normal to inspection. Soft to palpation and nontender Skin: No rashes or lesions noted Neuro: Patient oriented x3 Extremities: Normal to inspection Results Plan - Continue monitoring of pulmonary nodules with repeat CT scan in collaboration with pulmonary specialists. - Management of tobacco use with consideration of smoking cessation interventions. - Conduct PSA testing as part of prostate health screening. Patient was informed and verbally consented to the use of an ambient scribe for clinic note documentation during this visit. Discussion Notes I discussed with the patient the importance of monitoring his pulmonary nodules and highlighted the need for the upcoming CT scan. We reviewed his smoking status and the potential consequences on his pulmonary health, emphasizing the benefits of smoking cessation. The patient declined a digital rectal examination, opting instead for a PSA test, which will be undertaken to ensure prostate health monitoring. I advised that ongoing collaboration with pulmonary specialists is crucial for optimal management of his respiratory conditions. Patient Instructions - Proceed with planned repeat CT scan for monitoring of the pulmonary nodules. - Complete PSA test as per agreed plan. - Continue engagement with pulmonary specialists. - Consider options for smoking cessation and discuss further if interested. [facility] Medical History (Updated 08/18/24 @ 13:48 by Lore Stucenski, TELEPHONE LINES REPAIRER) Ectatic aorta Tubular adenoma of colon (~2021) HTN (hypertension) COPD (chronic obstructive pulmonary disease) Nicotine dependence, cigarettes, uncomplicated History of basal cell cancer Surgical History History of colonoscopy History of tonsillectomy History of hernia repair History of hand surgery History of knee surgery History of basal cell carcinoma excision Social History Housing: House Patient Tobacco Use Status: Current everyday Tobacco user Tobacco use type: Cigarette Cigarette Packs Per Day: 1 Years Smoked: onset 18yo, 1ppd x 50yrs, 50pyh) e-Cigarette/Vaping Use: Never Used Second Hand Smoke Exposure: No service: Yes Current occupational status: retired Current occupation: [employer] Current occupational exposures/hazards: Yes Cognitive needs: No Hearing needs: No Vision needs: Yes Questionnaire PHQ-9 Over the last 2 weeks, how often have you been bothered by any of the following problems? 1. Little interest or pleasure in doing things: not at all 2. Feeling down, depressed, or hopeless: not at all 3. Trouble falling or staying asleep, or sleeping too much: not at all 4. Feeling tired or having little energy: not at all 5. Poor appetite or overeating: not at all 6. Feeling bad about yourself - or that you are a failure or have let yourself or your family down: not at all 7. Trouble concentrating on things, such as reading the newspaper or watching television: not at all 8. Moving or speaking so slowly that other people could have noticed. Or the opposite - being so fidgety or restless that you have been moving around a lot more than usual: not at all 9. Thoughts that you would be better off or of hurting yourself in some way: not at all Total score: 0 Depression Screening Interpretation: Negative Depression Screening Done: Yes 81193 - PHQ-9 Billing: Yes Source: Developed by Drs. Jesse Moscoso, Maryan Cooper, Keith Villatoro and colleagues, with an educational harriett from [employer]. Thrive Questionnaire Date Thrive assessed: 10/01/24 I am a: Patient What is your living situation today?: I have a steady place to live Within the past 12 months, did the food you bought not last and you didn't have the money to get more?: Never true Within the past 12 months, did you worry whether your food would run out before you got money to buy more?: Never true Do you have trouble paying for medicines?: No Do you have trouble getting transportation to medical appointments?: No Do you have trouble paying your heating and electricity bill?: No Do you have trouble taking care of your child, family member or friend?: No Do you have trouble with day-to-day activities such as bathing, preparing meals, shopping, managing finances, etc.?: No Are you currently unemployed and looking for a job?: No Are you interested in more education?: No Please select the resources that you would like help with: None Currently or been in a relationship where the following occur: No concerns reported THRIVE Score: 0 AUDIT C Alcohol Use Questionnaire (AUDIT-C) 1. How often do you have a drink containing alcohol?: 2-3 times a week 2. How many drinks containing alcohol do you have on a typical day when you are drinking?: 1 or 2 3. How often do you have six or more drinks on one occasion?: Never Total Score: 3 YONI-7 AMB Questionnaire YONI-7 Date YONI - 7 assessed: 10/08/24 Feeling nervous, anxious, or on edge: 0 = Not at all Not being able to stop or control worryin = Not at all Worrying too much about different things: 0 = Not at all Trouble relaxin = Not at all Being so restless that it is hard to sit still: 0 = Not at all Becoming easily annoyed or irritable: 0 = Not at all Feeling afraid as if something awful might happen: 0 = Not at all Total YONI-7 score (0-4 normal; 5-9 mild; 10-14 moderate; 15-21 severe): 0 Source: Developed by Drs. Jesse Moscoso, Maryan Cooper, Keith Villatoro and colleagues, with an educational harriett from [employer]. YONI-7 Assessment Billing YONI-7 Assessment Tool: YONI-7 Assessment 00997 Physical exam (Primary Care) Vital Signs: Last Vital Signs Pulse 71 10/08/24 07:40 BP 144/60 H 10/08/24 07:40 Pulse Ox 95 10/08/24 07:40 Oxygen Delivery Method Room Air 10/08/24 07:40 BMI result Body Mass Index 19.7 Tobacco/Smoking Status: Tobacco use Status Tobacco use date assessed 10/08/24 10/08/24 07:43 Patient Tobacco Use Status Current everyday Tobacco 10/08/24 07:32 Tobacco use type Cigarette 10/08/24 07:32 e-Cigarette/Vaping Use Never Used 10/08/24 07:32 PHQ-9: PHQ-9 Score PHQ-9: Total score 0 10/08/24 07:59 Depression Screening Interpretation: Negative Thrive Assessment: Date of Thrive Assessment Date Thrive assessed 10/01/24 10/08/24 07:32 Currently or been in a relationship where the following occur: No concerns reported Coding Level of Care Code Est Pt Prev Care >65y(81683) Diagnoses Physical exam Z00.00 Screening PSA (prostate specific antigen) Z12.5 Recurrent respiratory infection J98.8 COPD (chronic obstructive pulmonary disease) J44.9 HTN (hypertension) I10 Nicotine dependence, cigarettes, uncomplicated F17.210 Screening for AAA (abdominal aortic aneurysm) Z13.6 Additional Codes YONI-7 Assessment Billing - YONI-7 Assessment Tool: YONI-7 Assessment 60669 ([id number]) PHQ-9 - 68969 - PHQ-9 Billing: Yes ([id number]) Assessment & Plan Assessment & Plan (1) Physical exam: Code(s): Z00.00 - Encounter for general adult medical examination without abnormal findings Category: Medical (2) Screening PSA (prostate specific antigen): Code(s): Z12.5 - Encounter for screening for malignant neoplasm of prostate Category: Medical (3) Recurrent respiratory infection: Code(s): J98.8 - Other specified respiratory disorders Category: Medical (4) COPD (chronic obstructive pulmonary disease): Code(s): J44.9 - Chronic obstructive pulmonary disease, unspecified Category: Medical (5) HTN (hypertension): Code(s): I10 - Essential (primary) hypertension Category: Medical (6) Nicotine dependence, cigarettes, uncomplicated: Comment: (current smoker - onset 18yo, 1ppd x 50yrs, 50pyh) Code(s): F17.210 - Nicotine dependence, cigarettes, uncomplicated Category: Medical (7) Screening for AAA (abdominal aortic aneurysm): Comment: (The USPTF recommends all men aged 65-75 who have ever smoked have a one-time abdominal ultrasound for AAA screening - recommend if not done prior) Code(s): Z13.6 - Encounter for screening for cardiovascular disorders Category: Medical Plan . Orders: Orders Comprehensive [place]. Panel Fast Today Z00.00 - Encounter for general adult medical examination without abnormal findings US abdominal aortic aneurysm Today F17.210 - Nicotine dependence, cigarettes, uncomplicated, Z13.6 - Encounter for screening for cardiovascular disorders Complete Blood Count Auto Diff Today Z00.00 - Encounter for general adult medical examination without abnormal findings TSH reflex Free T4 Today Z00.00 - Encounter for general adult medical examination without abnormal findings UA CC w/rflx Micro + Cult Today Z00.00 - Encounter for general adult medical examination without abnormal findings Lipid Panel Today Z00.00 - Encounter for general adult medical examination without abnormal findings Prostate Specific Antigen Scr Today Z12.5 - Encounter for screening for malignant neoplasm of prostate
--- OUTSIDE RECORDS SUMMARY | 2024-10-08 07:33 | XMS_ITS | Data Portability ---
Author Organization [facility], Main Office Address [address] [place] [address] Care Team Providers Care Tube Dispatcher Name Role Phone MO LILLY Primary Care Provider [phone] CHAVO HERNANDEZ Hydrocrane Operator ANITHA DYE Funeral Greeter GUILLERMO GARCIA Ward Service Supervisor SHARATH YAN Vascular Surgeon Assessment Encounter Date Assessment Date Assessment LastModified by Organization Details LastModified Time 07/20/2018 07/20/2018 Reviewed chronic medications and concerns. Still reports good home BP readings, but did not bring with him. Will follow and record BP and return to see PA and bring home automated cuff to compare to our cuff. Encouraged smoking cessation again today. phelmuth Not available 07/20/2018 09:18:31 03/03/2019 03/03/2019 Still not able to quit smoking. Will start LDCT for cancer screening. Reviewed concerns about BP management. Will start CCB and have him follow up in 2 mos here in person. phone call follow up in 2-3 weeks. phelmuth Not available 03/03/2019 09:31:27 Plan of Treatment Reminders Order Date Submit Date Provider Last Modified By Organization Details Last Modified Time Details Appointments None record ed. Lab lipid panel, serum 2017 018 [facility], [address] [facility], [facility], [place], [address], 8 16:59:49 TSH, serum or plasma 2017 018 [facility], [address], [place], [address], 8 17:09:21 CBC w/ auto diff 2017 018 [facility], [address], [address], [place], [address], 8 14:08:57 BMP, serum or plasma 2017 018 [facility], [address], [address], [place], [address], 8 16:59:48 borrel ia burgdo rferi C6 Ab, QL, serum 2017 018 [facility], [address], [address], [place], [address], 8 09:39:32 BMP, serum or plasma 2018 019 [facility], [address], [address], [place], [address], 9 15:17:13 magnes ium, serum or plasma 2018 019 [facility], [address], [address], [place], [address], 9 15:17:18 lipid panel, serum 2018 019 [facility], [address], [address], [place], [address], 9 15:17:17 folate , serum 2018 019 [facility], [address], [address], [place], [address], 9 15:41:59 gamma- glutam yl transf erase (ggt), serum 2018 019 [facility], [address], [address], [place], [address], 9 15:17:15 mma (methy lmalon ic acid), serum 2018 019 [facility], [address], [address], [place], [address], 9 10:12:12 vitami n B12, serum 2018 019 [facility], [address], [address], [place], [address], 9 15:41:58 CBC w/ auto diff 2018 019 [facility], [address], [address], [place], [address], 9 14:07:07 BMP, serum or plasma 2019 020 [facility], [address], [address], [place], [address], 0 20:58:25 lipid panel, serum 2019 020 [facility], [address], [address], [place], [address], 0 20:58:26 CBC w/ auto diff 2019 020 [facility], [address], [address], [place], [address], 0 16:21:30 TSH, serum or plasma 2019 020 [facility], [address], [address], [place], [address], 0 21:00:37 Referral None record ed. Procedures None record ed. Surgeries None record ed. Imaging LDCT, chest, for lung cancer screen ing - The patien t does not have lung cancer or signs of lung cancer at this time. Patien t has not had a chest CT in the last 12 months . The patien t has not had a regula r chest CT within the last 12 months . 2018 019 [facility], [address] [place], [address], 9 13:25:37 Medication Orders Symbic ort 160 mcg-4. 5 mcg/ac tuatio n HFA aeroso l inhale r 2017 018 [id number], [address] [place] [address], [id number], 8 09:11:48 Spiriv a with HandiH aler 18 mcg and inhala tion capsul es 2017 018 [facility] #89182, [address] [place] [address], [id number], 8 09:11:49 magnes ium oxide 400 mg (241.3 mg magnes ium) tablet 2017 018 [facility], [address] [place] [address], [id number], 9 08:44:59 cyclob enzapr ine 10 mg tablet 2017 018 [facility], [address] [place] [address], [id number], 9 08:44:55 amlodi pine 5 mg tablet 2018 019 [facility]38582, [address] [place] [address], [id number], 9 09:20:25 Symbic ort 160 mcg-4. 5 mcg/ac tuatio n HFA aeroso l inhale r 2019 020 [facility], [address] [place] [address], [address], 0 09:01:28 Patient Targets Encounter Date Encounter Id Patient Goals Patient Target Last Modified By Organization Details Last Modified Time 05/05/2019 [id number] jail goal of Blood Pressure 140 / 90 Not available Not available Not available jail goal of Exercise level Not available Not available Not available jail goal of Tobacco Smoking Status Not available Not available Not available Pt advised and agrees to eat a low salt low fat diet; to do moderate exercise (such as walking) 150 minutes per week; to limit alcohol intake (goal of 2 drinks per day or less for men or 1 for woman). and to monitor dietary sodium. Will monitor home blood pressures and bring readings to appointments. Patient preferences and goals incorporated in plan and updated/modifie d as needed to reflect progress toward goal. pmadden Not available 05/05/2019 09:23:13 Patient Instructions Encounter Date Encounter Id Patient Instructions Last Modified By Organization Details Last Modified Time 07/20/2018 [id number] deciding about using medicines to quit smoking pheuth Not available 07/20/2018 09:11:42 Quitting Tobacco : Care Instructions [facility] Not available 07/20/2018 09:11:42 chronic obstructive pulmonary disease (COPD): care instructions [facility] Not available 07/20/2018 09:11:42 learning about copd and how to prevent lung infections phelmuth Not available 07/20/2018 09:11:42 high blood pressure: care instructions phelmuth Not available 07/20/2018 09:11:42 learning about high blood pressure phelmuth Not available 07/20/2018 09:11:42 tick bite: care instructions [facility] Not available 07/20/2018 09:14:27 03/03/2019 [id number] deciding about using medicines to quit smoking phelmuth Not available 03/03/2019 09:48:36 [facility] : [facility] 03/03/2019 09:48:36 high blood pressure: care instructions phelmuth Not available 03/03/2019 09:48:36 learning about high blood pressure pheuth Not available 03/03/2019 09:48:36 Lung Cancer Screening pheuth Not available 03/03/2019 09:09:52 lung cancer screening eligibility assessment* [facility] Not available 04/16/2019 13:21:51 high cholesterol : [facility] Not available 03/03/2019 09:05:54 chronic obstructive pulmonary disease (COPD): [facility] Not available 03/03/2019 09:05:54 learning about copd and how to prevent lung infections pheuth Not available 03/03/2019 09:05:54 spirometry testing* SAMANTHA Not available 03/03/2019 09:56:04 05/05/2019 [id number] Medications (OTC , herbal therapies, supplements) reviewed and reconciled with patient and or caregiver, including potential side effects, drug interactions, instructions, and the consequences of not taking medication. Reviewed potential barriers to medication adherence, such as side effects from medication or cost of medication. Patient will follow up and keep appointment as scheduled. pmadden Not available 05/05/2019 09:23:59 09/08/2019 [id number] Quitting Tobacco : Care Instructions pmadden Not available 09/08/2019 09:37:48 Learning About Benefits of Quitting Smoking pmadden Not available 09/08/2019 09:37:48 high blood pressure: care instructions pmadden Not available 09/08/2019 09:37:07 dash diet: care instructions pmadden Not available 09/08/2019 09:37:07 low sodium diet (2,000 milligram): care instructions pmadden Not available 09/08/2019 09:37:07 chronic obstructive pulmonary disease (COPD): care instructions pmadden Not available 09/08/2019 09:37:07 Medications (OTC , herbal therapies, supplements) reviewed and reconciled with patient and or caregiver, including potential side effects, drug interactions, instructions, and the consequences of not taking medication. Reviewed potential barriers to medication adherence, such as side effects from medication or cost of medication. Patient will follow up and keep appointment as scheduled. 25 minute office visit with greater than 50% of the visit [id number] with the patient and/or family providing counseling and/or coordination of care. pmadden Not available 09/08/2019 09:36:43 07/26/2020 [id number] deciding about using medicines to quit smoking pheuth Not available 07/26/2020 09:01:28 Quitting Tobacco : [facility] Not available 07/26/2020 09:01:27 high blood pressure: [facility] Not available 07/26/2020 08:42:05 learning about high blood pressure pheuth Not available 07/26/2020 08:42:05 nurse assessment * - Please call to get home BP readings in a few weeks. Was elevated in the office. If still elevated, should change to amlodipine+beneza pril 5/10mg. thanks! [facility] Not available 08/27/2020 16:27:55 high cholesterol : [facility] Not available 07/26/2020 09:01:27 chronic obstructive pulmonary disease (COPD): [facility] Not available 07/26/2020 09:01:27 learning about copd and how to prevent lung infections pheuth Not available 07/26/2020 09:01:27 Reason for Referral None Reported. Results Created Date Observation Date Name Description Value Unit Range Abnormal Flag Note LastModifiedBy Organization Detail LastModifiedTime 07/22/20 18 07/22/2018 CBC w/ auto diff WBC 8.3 K/mm3 (4.0-1 1.0) Not Available [facility] [address] [place], [address], 07/22/2018 14:08:57 07/22/20 18 07/22/2018 CBC w/ auto diff RBC 5.04 M/mm3 (4.70- 6.10) Not Available [facility] [address] [place], [address], 07/22/2018 14:08:57 07/22/20 18 07/22/2018 CBC w/ auto diff HGB 15.7 gm/dL (13.7- 16.5) Not Available [facility] [address] [place], [address], 07/22/2018 14:08:57 07/22/20 18 07/22/2018 CBC w/ auto diff HCT 48.0 % (40.5- 48.5) Not Available [facility] [address] [place], [address], 07/22/2018 14:08:57 07/22/20 18 07/22/2018 CBC w/ auto diff MCV 95.2 fL (80.0- 94.0) high Not Available [facility] [address] [place], [address], 07/22/2018 14:08:57 07/22/20 18 07/22/2018 CBC w/ auto diff MCH 31.2 pg (27.0- 34.0) Not Available [facility] [address] [place], [address], 07/22/2018 14:08:57 07/22/20 18 07/22/2018 CBC w/ auto diff MCHC 32.7 g/dL (33.0- 37.0) low Not Available [facility] [address] [place], [address], 07/22/2018 14:08:57 07/22/20 18 07/22/2018 CBC w/ auto diff plt 405 K/mm3 (150-4 60) Not Available [facility] [address] [place], [address], 07/22/2018 14:08:57 07/22/20 18 07/22/2018 CBC w/ auto diff RDW-SD 48.7 fL (<47.0 ) high Not Available [facility] [address] [place], [address], 07/22/2018 14:08:57 07/22/20 18 07/22/2018 CBC w/ auto diff MPV 9.8 fL (9.4-1 2.4) Not Available [facility] [address] [place], [address], 07/22/2018 14:08:57 07/22/20 18 07/22/2018 CBC w/ auto diff automated NRBC 0.0 #/100 _WBC' s Not Available [facility] [address] [place], [address], 07/22/2018 14:08:57 07/22/20 18 07/22/2018 CBC w/ auto diff abs. NRBC 0.0 K/mm3 Not Available [facility] [address] [place], [address], 07/22/2018 14:08:57 07/22/20 18 07/22/2018 CBC w/ auto diff neut # 4.7 K/mm3 (1.3-7 .0) Not Available [facility] [address] [place], [address], 07/22/2018 14:08:57 07/22/20 18 07/22/2018 CBC w/ auto diff lymph # 2.3 K/mm3 (0.8-3 .1) Not Available [facility] [address] [place], [address], 07/22/2018 14:08:57 07/22/20 18 07/22/2018 CBC w/ auto diff mono# 0.9 K/mm3 (0.4-1 .3) Not Available [facility] [address] [place], [address], 07/22/2018 14:08:57 07/22/20 18 07/22/2018 CBC w/ auto diff eo # 0.2 K/mm3 (0.0-0 .4) Not Available [facility] [address] [place], [address], 07/22/2018 14:08:57 07/22/20 18 07/22/2018 CBC w/ auto diff baso # 0.2 K/mm3 (0.0-0 .1) high Not Available [facility] [address] [place], [address], 07/22/2018 14:08:57 07/22/20 18 07/22/2018 CBC w/ auto diff abs. imm gran 0.1 K/mm3 Not Available [facility] [address] [place], [address], 07/22/2018 14:08:57 07/22/20 18 07/22/2018 CBC w/ auto diff neut 56.2 % (44-76 ) Not Available [facility] [address] [place], [address], 07/22/2018 14:08:57 07/22/20 18 07/22/2018 CBC w/ auto diff lymph 28.1 % (15-43 ) Not Available [facility] [address] [place], [address], 07/22/2018 14:08:57 07/22/20 18 07/22/2018 CBC w/ auto diff monocyte 10.7 % (4.5-1 0.5) high Not Available [facility] [address] [place], [address], 07/22/2018 14:08:57 07/22/20 18 07/22/2018 CBC w/ auto diff eo 2.0 % (0-6) Not Available [facility] [address] [place], [address], 07/22/2018 14:08:57 07/22/20 18 07/22/2018 CBC w/ auto diff baso 2.4 % (0-2) high Not Available [facility] [address] [place], [address], 07/22/2018 14:08:57 07/22/20 18 07/22/2018 CBC w/ auto diff imm gran 0.6 % (0.0-0 .6) Not Available [facility] [address] [place], [address], 07/22/2018 14:08:57 07/22/20 18 07/22/2018 BMP, serum or plasm a glucose 90 mg/dL (70-99 ) Not Available [facility] [address] [place], [address], 07/22/2018 16:59:48 07/22/20 18 07/22/2018 BMP, serum or plasm a BUN 8 mg/dL (8-23) Not Available [facility] [address] [place], [address], 07/22/2018 16:59:48 07/22/20 18 07/22/2018 BMP, serum or plasm a creatinine 0.7 mg/dL (0.7-1 .2) Not Available [facility] [address] [place], [address], 07/22/2018 16:59:48 07/22/20 18 07/22/2018 BMP, serum or plasm a sodium 139 mmol/ L (133-1 45) Not Available [facility] [address] [place], [address], 07/22/2018 16:59:48 07/22/20 18 07/22/2018 BMP, serum or plasm a potassium 4.6 mmol/ L (3.6-5 .2) Not Available [facility] [address], [address], 07/22/2018 16:59:48 07/22/20 18 07/22/2018 BMP, serum or plasm a chloride 98 mmol/ L (98-10 7) Not Available [facility] [address] [place], [address], 07/22/2018 16:59:48 07/22/20 18 07/22/2018 BMP, serum or plasm a bicarbonate 27 mmol/ L (22-29 ) Not Available [facility] [address] [place], [address], 07/22/2018 16:59:48 07/22/20 18 07/22/2018 BMP, serum or plasm a anion gap 14 (4-17) Not Available [facility] [address], [address], 07/22/2018 16:59:48 07/22/20 18 07/22/2018 BMP, serum or plasm a calcium 9.5 mg/dL (8.6-1 0.5) Not Available [facility] [address] [place], [address], 07/22/2018 16:59:48 07/22/20 18 07/22/2018 BMP, serum or plasm a est GFR non 101 mL/mi n/1.7 3_M2 Creat inine based estim ated glome rular filtr ation rate (eGFR ) is calcu lated using the Chron ic Kidne y Disea se Epide miolo gy Colla borat ion (CKD- EPI). The CKD-E PI creat inine equat ion has not been valid ated in child raeann (<18 years ), pregn ant women or in some racia l or ethni c subgr oups other than Cauca sians and Afric an Ameri cans. Not Available [facility] [address] [place], [address], 07/22/2018 16:59:48 07/22/20 18 07/22/2018 BMP, serum or plasm a est GFR 117 mL/mi n/1.7 3_M2 Creat inine based estim ated glome rular filtr ation rate (eGFR ) is calcu lated using the Chron ic Kidne y Disea se Epide miolo gy Colla borat ion (CKD- EPI). The CKD-E PI creat inine equat ion has not been valid ated in child raeann (<18 years ), pregn ant women or in some racia l or ethni c subgr oups other than Cauca sians and Afric an Ameri cans. Not Available [facility] [address] [place], [address], 07/22/2018 16:59:48 07/22/20 18 07/22/2018 lipid panel , serum cholesterol, total 173 mg/dL (<200) Not Available [facility] [address] [place], [address], 07/22/2018 16:59:49 07/22/20 18 07/22/2018 lipid panel , serum triglyceride 71 mg/dL (<150) Not Available [facility] [address] [place], [address], 07/22/2018 16:59:49 07/22/20 18 07/22/2018 lipid panel , serum HDL chol 101 mg/dL (>39) Not Available [facility] [address] [place], [address], 07/22/2018 16:59:49 07/22/20 18 07/22/2018 lipid panel , serum LDL cholesterol, calculated 58 mg/dL (0-130 ) Not Available [facility] [address] [place], [address], 07/22/2018 16:59:49 07/22/20 18 07/22/2018 lipid panel , serum non HDL cholesterol (calc) 72 mg/dL (<160) Not Available [facility] [address] [place], [address], 07/22/2018 16:59:49 07/22/20 18 07/22/2018 TSH, serum or plasm a TSH 1.10 mIU/m L (0.40- 4.00) Not Available [facility] [address] [place], [address], 07/22/2018 17:09:21 07/22/20 18 07/24/2018 borre bela burgd orfer i C6 Ab, QL, serum lyme C6 antibody NEGAT DIVINA NO ANTIB KETAN TO BORSEVERINO BALESIA BURGD ORFER I DETEC DORIE. PATIE NTS IN EARLY STAGE S OF INFEC TION OR WHO WERE GIVEN EARLY ANTIB IOTIC TREAT MENT MAY NOT PRODU CE DETEC TABLE LEVEL S OF ANTIB KETAN. THESE PATIE NTS WOULD BENEF IT FROM REPEA T TESTI NG IN 2 TO 4 WEEKS . Refer ence range : Negat divina Not Available [facility] [address] [place], [address], 07/24/2018 09:39:32 03/03/20 19 03/03/2019 CBC w/ auto diff WBC 9.2 K/mm3 (4.0-1 1.0) Not Available [facility] [address], [address], 03/03/2019 14:07:06 03/03/20 19 03/03/2019 CBC w/ auto diff RBC 5.12 M/mm3 (4.70- 6.10) Not Available [facility] [address] [place], [address], 03/03/2019 14:07:06 03/03/20 19 03/03/2019 CBC w/ auto diff HGB 16.0 gm/dL (13.7- 17.1) Not Available [facility] [address] [place], [address], 03/03/2019 14:07:06 03/03/20 19 03/03/2019 CBC w/ auto diff HCT 48.5 % (40.5- 50.0) Not Available [facility] [address] [place], [address], 03/03/2019 14:07:06 03/03/20 19 03/03/2019 CBC w/ auto diff MCV 94.7 fL (80.0- 94.0) high Not Available [facility] [address] [place], [address], 03/03/2019 14:07:06 03/03/20 19 03/03/2019 CBC w/ auto diff MCH 31.3 pg (27.0- 34.0) Not Available [facility] [address] [place], [address], 03/03/2019 14:07:06 03/03/20 19 03/03/2019 CBC w/ auto diff MCHC 33.0 g/dL (33.0- 37.0) Not Available [facility] [address] [place], [address], 03/03/2019 14:07:06 03/03/20 19 03/03/2019 CBC w/ auto diff plt 345 K/mm3 (150-4 60) Not Available [facility] [address], [address], 03/03/2019 14:07:06 03/03/20 19 03/03/2019 CBC w/ auto diff RDW-SD 46.5 fL (<47.0 ) Not Available [facility] [address] [place], [address], 03/03/2019 14:07:06 03/03/20 19 03/03/2019 CBC w/ auto diff MPV 10.2 fL (9.4-1 2.4) Not Available [facility] [address] [place], [address], 03/03/2019 14:07:06 03/03/20 19 03/03/2019 CBC w/ auto diff automated NRBC 0.0 #/100 _WBC' s Not Available [facility] [address] [place], [address], 03/03/2019 14:07:06 03/03/20 19 03/03/2019 CBC w/ auto diff abs. NRBC 0.0 K/mm3 Not Available [facility] [address] [place], [address], 03/03/2019 14:07:06 03/03/20 19 03/03/2019 BMP, serum or plasm a glucose 91 mg/dL (70-99 ) Not Available [facility] [address] [place], [address], 03/03/2019 15:17:13 03/03/2003/03/2019 BMP, serum or plasm a BUN 10 mg/dL (8-23) Not Available [facility] [address] [place], [address], 03/03/2019 15:17:13 03/03/2003/03/2019 BMP, serum or plasm a creatinine 0.7 mg/dL (0.7-1 .2) Not Available [facility] [address], [address], 03/03/2019 15:17:13 03/03/20 19 03/03/2019 BMP, serum or plasm a sodium 137 mmol/ L (133-1 45) Not Available [facility] [address], [address], 03/03/2019 15:17:13 03/03/20 19 03/03/2019 BMP, serum or plasm a potassium 4.9 mmol/ L (3.6-5 .2) Not Available [facility] [address] [place], [address], 03/03/2019 15:17:13 03/03/20 19 03/03/2019 BMP, serum or plasm a chloride 98 mmol/ L (98-10 7) Not Available [facility] [address] [place], [address], 03/03/2019 15:17:13 03/03/20 19 03/03/2019 BMP, serum or plasm a bicarbonate 28 mmol/ L (22-29 ) Not Available [facility] [address] [place], [address], 03/03/2019 15:17:13 03/03/20 19 03/03/2019 BMP, serum or plasm a anion gap 11 (4-17) Not Available [facility] [address] [place], [address], 03/03/2019 15:17:13 03/03/20 19 03/03/2019 BMP, serum or plasm a calcium 9.8 mg/dL (8.6-1 0.5) Not Available [facility] [address] [place], [address], 03/03/2019 15:17:13 03/03/20 19 03/03/2019 BMP, serum or plasm a est GFR non 100 mL/mi n/1.7 3_M2 Creat inine based estim ated glome rular filtr ation rate (eGFR ) is calcu lated using the Chron ic Kidne y Disea se Epide miolo gy Colla borat ion (CKD- EPI). The CKD-E PI creat inine equat ion has not been valid ated in child raeann (<18 years ), pregn ant women or in some racia l or ethni c subgr oups other than Cauca sians and Afric an Ameri cans. Not Available [facility] [address] [place], [address], 03/03/2019 15:17:13 03/03/20 19 03/03/2019 BMP, serum or plasm a est GFR 116 mL/mi n/1.7 3_M2 Creat inine based estim ated glome rular filtr ation rate (eGFR ) is calcu lated using the Chron ic Kidne y Disea se Epide miolo gy Colla borat ion (CKD- EPI). The CKD-E PI creat inine equat ion has not been valid ated in child raeann (<18 years ), pregn ant women or in some racia l or ethni c subgr oups other than Cauca sians and Afric an Ameri cans. Not Available [facility] [address] [place], [address], 03/03/2019 15:17:13 03/03/20 19 03/03/2019 gamma -glut amyl trans feras e (ggt) , serum ggtp 35 U/L (8-61) Not Available [facility] [address] [place], [address], 03/03/2019 15:17:15 03/03/2003/03/2019 lipid panel , serum cholesterol, total 188 mg/dL (<200) Not Available [facility] [address] [place], [address], 03/03/2019 15:17:17 03/03/2003/03/2019 lipid panel , serum triglyceride 50 mg/dL (<150) Not Available [facility] [address] [place], [address], 03/03/2019 15:17:17 03/03/2003/03/2019 lipid panel , serum HDL chol 121 mg/dL (>39) Not Available [facility] [address] [place], [address], 03/03/2019 15:17:17 03/03/2003/03/2019 lipid panel , serum LDL cholesterol, calculated 57 mg/dL (0-130 ) Not Available [facility] [address] [place], [address], 03/03/2019 15:17:17 03/03/2003/03/2019 lipid panel , serum non HDL cholesterol (calc) 67 mg/dL (<160) Not Available [facility] [address] [place], [address], 03/03/2019 15:17:17 03/03/2003/03/2019 magne sium, serum or plasm a magnesium 1.9 mg/dL (1.6-2 .3) Magne sium value s are curre ntly being repor dorie in mg/dL . Novem 2017, Magne sium repor ting unit has been vines ed from mEq/L to mg/dL . Conve rsion facto r: mEq/L x 1.22 equal s mg/dL . Refer ence Range (new unit) : 1.6-2 .3 mg/dL Refer ence Range (old unit) : 1.3-1 .9 mEq/L Not Available [facility] [address], [place], [address], 03/03/2019 15:17:18 03/03/2003/03/2019 vitam in B12, serum vitamin B12 514 pg/mL (232-1 245) Not Available [facility] [address], [place], [address], 03/03/2019 15:41:58 03/03/2003/03/2019 folat e, serum folic acid 19.0 NG/mL (>3.9) Not Available [facility] [address], [place], [address], 03/03/2019 15:41:59 03/03/2003/07/2019 mma (meth ylmal onic acid) , serum methylmaloni c acid, serum 0.25 Refer ence range : < EQ 0.40 Unit: nmol/ mL (NOTE ) = ----- ----- ----- ----A DDITI ONAL INFOR MATIO N---- ----- ----- ----- This test was sascha oped and its perfo rmanc e taisha cteri stics deter mined by [facility] in a sally r consi stent with KEVIN mason. This test has not been clear ed or appro marcy by the U.S. Food and Drug Admin istra tion. Test Perfo rmed by: [facility] Labor atori [facility], [address], [facility] [place] [address] Labor atory Direc tor: Joshua yarbrough III, M.D. Not Available [facility] [address] [place], [address], 03/07/2019 10:12:12 03/03/2003/03/2019 lefty metry testi ng* Spirometry abnorm al abnormal Not Available In-Office Order Internal Use Only DO Not Attach Compendium DO Not Attach Compendium, Do Not Delete/merge, [id number] 03/03/2019 09:00:06 07/26/2007/26/2020 CBC w/ auto diff WBC 8.5 K/mm3 (4.0-1 1.0) Not Available [facility] [address] [place], [address], 07/26/2020 16:21:30 07/26/2007/26/2020 CBC w/ auto diff RBC 5.06 M/mm3 (4.70- 6.10) Not Available [facility] [address] [place], [address], 07/26/2020 16:21:30 07/26/2007/26/2020 CBC w/ auto diff HGB 15.2 gm/dL (13.7- 17.1) Not Available [facility] [address] [place], [address], 07/26/2020 16:21:30 07/26/2007/26/2020 CBC w/ auto diff HCT 48.4 % (40.5- 50.0) Not Available [facility] [address] [place], [address], 07/26/2020 16:21:30 07/26/20 20 07/26/2020 CBC w/ auto diff MCV 95.7 fL (80.0- 94.0) high Not Available [facility] [address] [place], [address], 07/26/2020 16:21:30 07/26/20 20 07/26/2020 CBC w/ auto diff MCH 30.0 pg (27.0- 34.0) Not Available [facility] [address] [place], [address], 07/26/2020 16:21:30 07/26/20 20 07/26/2020 CBC w/ auto diff MCHC 31.4 g/dL (33.0- 37.0) low Not Available [facility] [address], [address], 07/26/2020 16:21:30 07/26/20 20 07/26/2020 CBC w/ auto diff plt 369 K/mm3 (150-4 60) Not Available [facility] [address] [place], [address], 07/26/2020 16:21:30 07/26/20 20 07/26/2020 CBC w/ auto diff RDW-SD 47.3 fL (<47.0 ) high Not Available [facility] [address] [place], [address], 07/26/2020 16:21:30 07/26/20 20 07/26/2020 CBC w/ auto diff MPV 10.3 fL (9.4-1 2.4) Not Available [facility] [address], [address], 07/26/2020 16:21:30 07/26/20 20 07/26/2020 CBC w/ auto diff automated NRBC 0.0 #/100 _WBC' s Not Available [facility] [address], [address], 07/26/2020 16:21:30 07/26/20 20 07/26/2020 CBC w/ auto diff abs. NRBC 0.0 K/mm3 Not Available [facility] [address] [place], [address], 07/26/2020 16:21:30 07/26/20 20 07/26/2020 CBC w/ auto diff neut # 5.1 K/mm3 (1.3-7 .0) Not Available [facility] [address] [place], [address], 07/26/2020 16:21:30 07/26/20 20 07/26/2020 CBC w/ auto diff lymph # 2.2 K/mm3 (0.8-3 .1) Not Available [facility] [address] [place], [address], 07/26/2020 16:21:30 07/26/20 20 07/26/2020 CBC w/ auto diff mono# 0.9 K/mm3 (0.4-1 .3) Not Available [facility] [address] [place], [address], 07/26/2020 16:21:30 07/26/20 20 07/26/2020 CBC w/ auto diff eo # 0.1 K/mm3 (0.0-0 .4) Not Available [facility] [address] [place], [address], 07/26/2020 16:21:30 07/26/20 20 07/26/2020 CBC w/ auto diff baso # 0.2 K/mm3 (0.0-0 .1) high Not Available [facility] [address] [place], [address], 07/26/2020 16:21:30 07/26/20 20 07/26/2020 CBC w/ auto diff abs. imm gran 0.1 K/mm3 Not Available [facility] [address], [address], 07/26/2020 16:21:30 07/26/20 20 07/26/2020 CBC w/ auto diff neut 59.8 % (44-76 ) Not Available [facility] [address] [place], [address], 07/26/2020 16:21:30 07/26/20 20 07/26/2020 CBC w/ auto diff lymph 25.5 % (15-43 ) Not Available [facility] [address] [place], [address], 07/26/2020 16:21:30 07/26/20 20 07/26/2020 CBC w/ auto diff monocyte 10.2 % (4.5-1 0.5) Not Available [facility] [address] [place], [address], 07/26/2020 16:21:30 07/26/20 20 07/26/2020 CBC w/ auto diff eo 1.4 % (0-6) Not Available [facility] [address] [place], [address], 07/26/2020 16:21:30 07/26/20 20 07/26/2020 CBC w/ auto diff baso 2.5 % (0-2) high Not Available [facility] [address] [place], [address], 07/26/2020 16:21:30 07/26/20 20 07/26/2020 CBC w/ auto diff imm gran 0.6 % Not Available [facility] [address] [place], [address], 07/26/2020 16:21:30 07/26/20 20 07/26/2020 BMP, serum or plasm a glucose 88 mg/dL (70-99 ) Not Available [facility] [address] [place], [address], 07/26/2020 20:58:24 07/26/20 20 07/26/2020 BMP, serum or plasm a BUN 9 mg/dL (8-23) Not Available [facility] [address] [place], [address], 07/26/2020 20:58:24 07/26/20 20 07/26/2020 BMP, serum or plasm a creatinine 0.6 mg/dL (0.7-1 .2) low Not Available [facility] [address] [place], [address], 07/26/2020 20:58:24 07/26/20 20 07/26/2020 BMP, serum or plasm a sodium 135 mmol/ L (133-1 45) Not Available [facility] [address], [address], 07/26/2020 20:58:24 07/26/20 20 07/26/2020 BMP, serum or plasm a potassium 4.9 mmol/ L (3.6-5 .2) Not Available [facility] [address], [address], 07/26/2020 20:58:24 07/26/20 20 07/26/2020 BMP, serum or plasm a chloride 94 mmol/ L (98-10 7) low Not Available [facility] [address], [address], 07/26/2020 20:58:24 07/26/20 20 07/26/2020 BMP, serum or plasm a bicarbonate 27 mmol/ L (22-29 ) Not Available [facility] [address] [place], [address], 07/26/2020 20:58:24 07/26/20 20 07/26/2020 BMP, serum or plasm a anion gap 14 (4-17) Not Available [facility] [address] [place], [address], 07/26/2020 20:58:24 07/26/20 20 07/26/2020 BMP, serum or plasm a calcium 9.7 mg/dL (8.6-1 0.5) Not Available [facility] [address] [place], [address], 07/26/2020 20:58:24 07/26/20 20 07/26/2020 BMP, serum or plasm a est GFR non 106 mL/mi n/1.7 3_M2 Not Available [facility] [address] [place], [address], 07/26/2020 20:58:24 07/26/20 20 07/26/2020 BMP, serum or plasm a est GFR 122 mL/mi n/1.7 3_M2 Creat inine based estim ated glome rular filtr ation rate (eGFR ) is calcu lated using the Chron ic Kidne y Disea se Epide miolo gy Colla borat ion (CKD- EPI). The CKD-E PI creat inine equat ion has not been valid ated in child raeann (<18 years ), pregn ant women or in some racia l or ethni c subgr oups other than Cauca sians and Afric an Ameri cans. Not Available [facility] [address] [place], [address], 07/26/2020 20:58:24 07/26/20 20 07/26/2020 lipid panel , serum cholesterol, total 199 mg/dL (<200) Not Available [facility] [address] [place], [address], 07/26/2020 20:58:26 07/26/20 20 07/26/2020 lipid panel , serum triglyceride 51 mg/dL (<150) Not Available [facility] [address] [place], [address], 07/26/2020 20:58:26 07/26/20 20 07/26/2020 lipid panel , serum HDL chol 142 mg/dL (>39) Not Available [facility] [address] [place], [address], 07/26/2020 20:58:26 07/26/20 20 07/26/2020 lipid panel , serum LDL cholesterol, calculated 47 mg/dL (0-130 ) Not Available [facility] [address] [place], [address], 07/26/2020 20:58:26 07/26/20 20 07/26/2020 lipid panel , serum non HDL cholesterol (calc) 57 mg/dL (<160) Not Available [facility] [address], [place], [address], 07/26/2020 20:58:26 07/26/20 20 07/26/2020 TSH, serum or plasm a TSH 1.05 uIU/m L (0.4-4 .00) Not Available [facility] [address] [place], [address], 07/26/2020 21:00:37 04/29/20 19 04/29/2019 CT chest ldct lung progr am CT Chest LDCT Lung Progra m INDICA TION: Other: ; LDCT LUNG CANCER SCREEN ING PROGRA M RELEVA NT CLINIC AL INFORM ATION/ CLINIC AL QUESTI ON: 64-yea r-old male, curren t cigare tte smoker , histor y of 44 pack years. Screen ing visit: Baselyohan ne Lung cancer screen ing. TECHNI QUE: Low-do se helica l CT of the chest withou t IV contra st (Adult Lung Cancer Screen ing) protoc ol was perfor med. Gudino l reform ats were obtain ed. Weight -based protoc ol using automa tic tube modula tion was used to optimi ze exposu re parame ters. RADIAT ION DOSE PARAME TERS: CTDIvo l Body: 2.07 mGy, DLP Body: 92 mGy*cm . COMPAR JAQUAN: None FINDIN GS: LUNG NODULE S: (As seen on series 5) RIGHT lung: -No nodule s. LEFT lung: -3 mm home care companion ior right apex nodule , image 34. -4 mm right apex linear nodule , image 48. -3 mm nodule superi or segmen t left lower lobe, image 143. -4 mm pleura l-base d nodule left lower lobe, image 162. OTHER FINDIN GS: Trache a and Airway s: Patent withou t eviden ce of trache al or endobr onchia l lesion . Lungs and Pleura : Mild to modera te centri lobula r emphys malina. Relati vely diffus e peribr onchia l thicke chela sugges tive of chroni c bronch itis. Subple ural scarri ng noted in the left home care companion ior upper lobe. There are subtle tree-i n-bud micron odules noted in the home care companion omedia l right middle lobe and superi or aspect left lower lobe. Small foci of endobr onchia l mucous pluggi ng noted in the latera l right lower lobe inferi lyn, as well as the most medial left lower lobe and inferi or home care companion ior left upper lobe. No pneumo thorax or pleura l effusi on. Medias tinum and Lymph nodes: No large lymph nodes. Normal cardia c size. No perica rdial effusi on. Mild to modera te gudino ry calcif icatio ns. Normal calibe r aorta with mild calcif icatio ns. Normal calibe r pulmon oneal artery . No esopha geal abnorm ality. Chest wall and Soft tissue s: Normal . Normal thyroi d. No lesion s. Diaphr agm and Upper Abdome n: There are are 3 discre te small home care companion ior fat-co ntaini ng diaphr agmati c hernia s. Imagin g of the upper abdome n is normal . Bones: No suspic ious osseou s abnorm alitie s. IMPRES JUDY: 1. LungRa d Catego ry: 2 Benign Appear ance or Behavi or. Nodule s with a very low likeli barrientos of becomi ng a clinic ally active cancer due to size or lack of growth . Contin ue annual screen ing with LDCT in 12 months . Scatte red pulmon oneal nodule s in the left lung measur ing up to 4 mm. 2. S modifi er: None. 3. Mild to modera te centri lobula r emphys malina. Diffus e endobr onchia l thicke chela consis tent with chroni c bronch itis. Scatte red foci of endobr onchia l mucous pluggi ng, as well as tree-i n-bud opacit ies sugges ting indole nt infect ion. WSN: [id number] Dictat ed By: Frandy Crawford rd, MD Dictat ed Date/T mg: 10:19 a Review ed By: Frandy Crawford rd, MD Signed By: Frandy Crawford rd, MD Signed Date/T mg: 10:19 am Transc ribed By: CSB Transc ribed Date/T mg: 10:19 am Patien t Class: [facility] [address], [place], [address], 05/05/2019 09:14:11 06/03/20 20 06/03/2020 CT chest ldct lung progr am CT Chest LDCT Lung Progra m INDICA TION: LDCT LUNG CANCER SCREEN ING PROGRA M CURREN T CIGARE TTE SMOKER HX 46 PACK YEARS Screen ing visit: Second TECHNI QUE: Low-do se helica l CT of the chest withou t IV contra st (Adult Lung Cancer Screen ing) protoc ol was perfor med. Gudino l, sagitt al, and maximu m intens ity projec tion (MIP) reform ats were obtain ed. Weight -based protoc ol using automa tic tube modula tion was used to optimi ze exposu re parame ters. RADIAT ION DOSE PARAME TERS: CTDIvo l Body: 2.16 mGy, DLP Body: 96 mGy*cm . COMPAR JAQUAN: 04/29/20 19 FINDIN GS: LUNG NODULE S: Bilate ral lung nodule s measur ing up to 4 mm are not signif icantl y change d. OTHER FINDIN GS: Trache a and Airway s: There is mucus in the distal trache a and mainst em bronch i. There is mild centra l bronch ial wall thicke chela, likely due to chroni c bronch itis. Lungs and Pleura : There is mild centri lobula r emphys malina. There is mild linear scarri ng or atelec tasis at the lung bases. No pneumo thorax or pleura l effusi on. Medias tinum and Lymph nodes: No large lymph nodes. Heart: Normal cardia c size. No perica rdial effusi on. Modera te gudino ry artery calcif icatio ns. Chest wall and Soft tissue s: Normal . Diaphr agm and Upper Abdome n: Diaphr agm and visual ized upper abdomi nal organs are normal . Bones: No suspic ious osseou s abnorm alitie s. IMPRES JUDY: Lung-R ADS Catego ry: 2. Multip le pulmon oneal nodule s, unchan ged. The catego ry-det ermini ng solid nodule has a very low likeli barrientos of becomi ng a clinic ally active cancer , due to size and/or lack of growth . The probab ility of malign polina is less than 1%. Recomm endati on: Contin ue annual screen ing with low-do se chest CT in 12 months . Lung cancer screen ing catego rizati on and recomm endati ons per Kylah Sherman of [employer] Lung-R ADS Versio n 1.1 (http: //www. acr.or g/Qual ity-Sa fety/R esour es/Saloni gRADS) . WSN: [id number] Orderi ng Physic brian: Mo Monahna Dictat ed By: Terry Jara MD Dictat ed Date/T mg: 10:09 a Review ed By: Terry Jara MD Signed By: Terry Jara MD Signed Date/T mg: 10:09 am Transc ribed By: CONSTANCE Transc ribed Date/T mg: 10:02 am Patien t Class: Outpat ient [facility] (Outpt Imaging) [address] [place] [address], [address], 06/03/2020 15:15:07 06/29/20 21 06/29/2021 CT chest ldct lung progr am CT Chest LDCT Lung Progra m INDICA TION: LDCT lung cancer screen ing progra m, curren t smoker , 47 pack year histor y. No chest CT in the last 12 months . No known lung cancer or signs and sympto ms of lung cancer . Screen ing visit: Year 2 TECHNI QUE: Low-do se helica l CT of the chest withou t IV contra st (Adult Lung Cancer Screen ing) protoc ol was perfor med. Gudino l, sagitt al, and axial MIP reform ats were obtain ed. Weight -based protoc ol using automa tic tube modula tion was used to optimi ze exposu re parame ters. RADIAT ION DOSE PARAME TERS: CTDIvo l Body: 1.70 mGy, DLP Body: 68 mGy*cm . COMPAR JAQUAN: 020 FINDIN GS: LUNG NODULE S: RIGHT lung: Severa l scatte red micron odules measur ing 1 to 2 mm are simila r to the previo us study withou t suspic ious featur es. LEFT lung: Scatte red micron odules measur ing 1-2 mm are simila r to the previo us study with increa sed tree-i n-bud nodula rity in the home care companion ior aspect of the left lower lobe (for exampl e, images 48, 56, and 62 of the axial MIP series ). OTHER FINDIN GS: Trache a and Airway s: Simila r appear ing layeri ng debris in the depend ent aspect of the left and right main stem bronch i (image s 36-50 of axial series 2), left greate r than right. Otherw ise patent withou t eviden ce of trache al or endobr onchia l lesion . Lungs and Pleura : Upper lobe predom inant centri lobula r emphys malina. Mild depend ent atelec tasis or scarri ng of the lower lobes. Increa sed tree-i n-bud nodula rity along the home care companion ior aspect of the left lower lobe. No pneumo thorax or pleura l effusi on. Medias tinum and Lymph nodes: No large lymph nodes. Normal cardia c size. No perica rdial effusi on. Modera te calcif icatio n of the gudino ry arteri es. Chest wall and Soft tissue s: Normal . Thyroi d: Normal . Vascul ar: Mild athero sclero tic calcif icatio n of the aorta. No aneury sm. Diaphr agm and Upper Abdome n: Small bilate ral Bochda lek hernia s. The adrena l glands are normal . Bones: Mild degene rative change s, but no acute abnorm ality. IMPRES JUDY: 1. LungRa d Catego ry 1: Negati ve. No nodule s. Contin ue annual screen ing with LDCT in 12 months . 2. Increa sed tree-i n-bud nodula rity in the left lower pulmon oneal lobe. This is a nonspe cific findin g with a broad differ ential that includ es infect ious diseas e, aspira tion, connec tive tissue disord ers, bronch ial pathol ogies, distan t metast atic diseas e, and granul omatou s diseas e, althou gh chroni c aspira tion is favore d given the layeri ng trache al debris seen on the curren t and previo us studie s. Please correl ate clinic ally. I have person ally review ed the images and I agree with this report . WSN: [id number] Orderi ng Physic brian: Mo Monahan Dictat ed By: Abdi CHRISTY, Polo Lorenzo Dictat ed Date/T mg: 10:06 a Review ed By: Neto almanzar MD, Rodrick zapata Signed By: Rodrick Duque i, MD Signed Date/T mg: 10:11 am Transc ribed By: CONSTANCE Transc ribed Date/T mg: 9:19 am Patien t Class: Outpat [facility] (Outpt Imaging) [address] [place], [address], 07/04/2021 18:01:03 Result Notes None recorded. Problems Name Problem SNOMED Code Status Onset Date Resolution Date Notes Provider Name and Address Organization Details Recorded Time Acute bronchit is 17164430 Completed 200804/30/2014 RECORDED 07/27/20 09 7:51AM BY RAMON GONZALEZ MA, GERARDO ON/ADDEN DUM [place] [facility]os [facility] 6 09:03:58 Chronic bronchit is 34601481 Completed 201204/30/2014 RECORDED 09/02/20 13 3:18PM BY RAMON GONZALEZ MA, GERARDO ON/ADDEN DUM [place] Matos [facility] 6 09:03:58 Joint pain 76943781 Completed 201104/30/2014 RECORDED 08/27/20 12 12:39PM BY RAMON GONZALEZ MA, ANNOTSHANTEL ON/ADDEN DUM [place], [facility] 6 09:03:58 Screenin g for malignan t neoplasm of colon Completed 201304/30/2014 RECORDED 12/31/19 14 7:01AM BY GERARDO DEUTSCH ON/ADDEN DUM [place], [facility] 6 09:03:59 Disorder of skin and/or subcutan eous tissue 36963423 Completed 201304/30/2014 RECORDED 12/31/19 14 7:01AM BY GERARDO DEUTSCH ON/ADDEN DUM [place], [facility] 6 09:03:58 Malaise and fatigue 996925765 Completed 201304/30/2014 RECORDED 12/31/19 14 7:01AM BY GERARDO DEUTSCH ON/ADDEN DUM [place], [facility] 6 09:03:58 Influenz a vaccine needed 08198658745 06 Completed 201104/30/2014 RECORDED 08/27/20 12 2:29PM BY RAMON GONZALEZ MA, OFFICE VISIT [place], [facility] 6 09:03:58 General examinat ion of patient Completed 200804/30/2014 RECORDED 07/27/20 09 7:51AM BY RAMON GONZALEZ MA, GERARDO ON/ADDEN DUM [place], [facility] 6 09:03:59 Renewal of prescrip tion Completed 201204/30/2014 RECORDED 09/02/20 13 3:18PM BY RAMON GONZALEZ MA, ANNOTATI ON/ADDEN DUM [place], [facility] 6 09:03:59 Active or passive immuniza tion Completed 200804/30/2014 RECORDED 07/27/20 09 8:44AM BY MO LILLY MD, OFFICE VISIT [place], [facility] 6 09:03:58 Sprain of carpomet acarpal joint 473359312 Completed 201104/30/2014 RECORDED 08/27/20 12 12:40PM BY RAMON GONZALEZ MA, ANNOTSHANTEL ON/ADDEN DUM [place], [facility] 6 09:03:58 Administ ration of diphther ia and tetanus vaccine Completed 201304/30/2014 RECORDED 12/31/19 14 7:01AM BY GERARDO DEUTSCH ON/ADDEN DUM [place], [facility] 6 09:03:58 Acute bronchit is 17185382 Completed 200805/01/2014 RECORDED 07/27/20 09 7:51AM BY RAMON GONZALEZ MA, ANNOTSHANTEL ON/ADDEN DUM [place], [facility] 6 09:03:58 Chronic bronchit is 03677110 Completed 201205/01/2014 RECORDED 09/02/20 13 3:18PM BY RAMON GONZALEZ MA, ANNOTATI ON/ADDEN DUM [place], [facility] 6 09:03:58 Joint pain 89414830 Completed 201105/01/2014 RECORDED 08/27/20 12 12:39PM BY RAMON GONZALEZ MA, ANNOTSHANTEL ON/ADDEN DUM [place], [facility] 6 09:03:58 Screenin g for malignan t neoplasm of colon Completed 201305/01/2014 RECORDED 12/31/19 14 7:01AM BY GERARDO DEUTSCH ON/ADDEN DUM [place], [facility] 6 09:03:59 Disorder of skin and/or subcutan eous tissue 96044446 Completed 201305/01/2014 RECORDED 12/31/19 14 7:01AM BY GERARDO DEUTSCH ON/ADDEN DUM [place], [facility] 6 09:03:58 Malaise and fatigue 573397120 Completed 201305/01/2014 RECORDED 12/31/19 14 7:01AM BY GERARDO DEUTSCH ON/ADDEN DUM [place], [facility] 6 09:03:58 Influenz a vaccine needed 91877837286 06 Completed 201105/01/2014 RECORDED 08/27/20 12 2:29PM BY RAMON GONZALEZ MA, OFFICE VISIT [place], [facility] 6 09:03:58 General examinat ion of patient Completed 200805/01/2014 RECORDED 07/27/20 09 7:51AM BY RAMON GONZALEZ MA, GERARDO ON/ADDEN DUM [place], [facility] 6 09:03:59 Renewal of prescrip tion Completed 201205/01/2014 RECORDED 09/02/20 13 3:18PM BY RAMON GONZALEZ MA, ANNOTSHANTEL ON/ADDEN DUM [place], [facility] 6 09:03:59 Active or passive immuniza tion Completed 200805/01/2014 RECORDED 07/27/20 09 8:44AM BY MO LILLY MD, OFFICE VISIT [place] [facility] 6 09:03:58 Sprain of carpomet acarpal joint 922750384 Completed 201105/01/2014 RECORDED 08/27/20 12 12:40PM BY RAMON GONZALEZ MA, ANNOTATI ON/ADDEN DUM [place] [facility] 6 09:03:58 Administ ration of diphther ia and tetanus vaccine Completed 201305/01/2014 RECORDED 12/31/19 14 7:01AM BY HÉCTOR ADAM I, ANNOTATI ON/ADDEN DUM [place] [facility] 6 09:03:58 Basal cell carcinom a of skin 206304468 Active Not Available [facility] 2 18:38:15 Neck pain 98129374 Completed 10/19/[address] [facility] 7 08:47:51 Fatigue 48850879 Completed 03/01/[address] [facility] 6 09:03:59 Bronchit is 46897490 Completed 10/19/[address] [facility] 7 08:47:43 Acute bronchit is 17905103 Completed 200804/07/2014 RECORDED 07/27/20 09 7:51AM BY RAMON GONZALEZ MA, ANNOTATI ON/ADDEN DUM [place] [facility] 6 09:03:58 Chronic bronchit is 89184953 Completed 201204/07/2014 RECORDED 09/02/20 13 3:18PM BY RAMON GONZALEZ MA, ANNOTATI ON/ADDEN DUM [place], [facility] 6 09:03:58 Adult health examinat ion Completed 201303/01/[address], [facility] 6 09:03:59 Joint pain 80591138 Completed 201104/07/2014 RECORDED 08/27/20 12 12:39PM BY RAMON GONZALEZ MA, ANNOTATI ON/ADDEN DUM [place], [facility] 6 09:03:58 Screenin g for malignan t neoplasm of colon Completed 201304/07/2014 RECORDED 12/31/19 14 7:01AM BY GERARDO DEUTSCH ON/ADDEN DUM [place], [facility] 6 09:03:59 Chronic obstruct divina pulmonar y disease 26820797 Active 2013 Not Available [facility] 2 18:38:15 Elevated blood-pr essure reading without diagnosi s of hyperten judy 203436304 Completed 201310/13/2014 RECORDED 12/31/19 14 7:01AM BY HÉCTOR ADAM I, OFFICE VISIT [place], [facility] 6 09:03:58 Disorder of skin and/or subcutan eous tissue 65961606 Completed 201304/07/2014 RECORDED 12/31/19 14 7:01AM BY HÉCTOR ADAM I, JOSEATI ON/ADDEN DUM [place], [facility] 6 09:03:58 Malaise and fatigue 848142655 Completed 201304/07/2014 RECORDED 12/31/19 14 7:01AM BY HÉCTOR ADAM I, ANNOTATI ON/ADDEN DUM [place], [facility] 6 09:03:58 Influenz a vaccine needed [id number] 06 Completed 201104/07/2014 RECORDED 08/27/20 12 2:29PM BY RAMON GONZALEZ MA, OFFICE VISIT [place], [facility] 6 09:03:58 General examinat ion of patient Completed 200804/07/2014 RECORDED 07/27/20 09 7:51AM BY RAMON GONZALEZ MA, ANNOTATI ON/ADDEN DUM [place], [facility] 6 09:03:59 Inguinal hernia 512562686 Active 2013 Not Available [facility] 2 18:38:15 Hyperlip idemia 02582381 Active 2013 Not Available [facility] 2 18:38:15 Essentia l hyperten judy 11008011 Active 2013 Not Available [facility] 2 18:38:15 Renewal of prescrip tion Completed 201204/07/2014 RECORDED 09/02/20 13 3:18PM BY RAMON GONZALEZ MA, ANNOTATI ON/ADDEN DUM [place], [facility] 6 09:03:58 Active or passive immuniza tion Completed 200804/07/2014 RECORDED 07/27/20 09 8:44AM BY MO LILLY MD, OFFICE VISIT [place], [facility] 6 09:03:58 Sprain of carpomet acarpal joint 025942091 Completed 201104/07/2014 RECORDED 08/27/20 12 12:40PM BY RAMON I CHARLIE GONZALEZ MA, ANNOTATI ON/ADDEN DUM [place] [facility] 6 09:03:58 Administ ration of diphther ia and tetanus vaccine Completed 201304/07/2014 RECORDED 12/31/19 14 7:01AM BY GERARDO DEUTSCH ON/ADDEN DUM [place] [facility] 6 09:03:58 Tobacco dependen ce syndrome 88412305 Active 2013 Not Available [facility] 2 18:38:15 Problem Notes None recorded. Procedures Surgical History Date Name Laterality Status Provider Name and Address Organization Details Recorded Time 09/24/19 20 excision of basal cell carcinoma completed Ramon duarte [place] [facility] 07/26/2020 08:36:48 03/17/20 16 Colonoscopy completed Ramon duarte MA [facility] 10/19/2016 08:51:51 03/17/20 16 Colonoscopy & polypectomy completed Ramon duarte [place] [facility] 05/01/2017 09:42:37 11/23/19 16 Cancer Surgery completed Ramon duarte [facility] 10/19/2016 08:52:23 11/23/19 15 Cancer Surgery completed Ramon duarte [place] [facility] 10/14/2015 09:10:48 10/05/19 15 Cancer Surgery completed Ramon duarte MA [facility] 03/03/2019 08:49:29 12/07/19 11 Joint Replacement completed Ramon duarte MA [facility] 12/28/2017 10:31:30 Hernia Repair completed Ramon duarte MA [facility] 10/13/2014 09:16:57 Tonsillectomy completed Ramon duarte MA [facility] 10/13/2014 09:16:57 Imaging Results Imaging Date Name Status LastModified by Organiz ation Details LastModified Time 04/29/2019 CT chest ldct lung program completed [facility] (Outpt Imaging) [address] [place], [address], 05/05/2019 09:14:11 06/03/2020 CT chest ldct lung program completed [facility] (Outpt Imaging) [address] [place], [address], 06/03/2020 15:15:07 06/29/2021 CT chest ldct lung program completed [facility] (Outpt Imaging) [address] [place], [address], 07/04/2021 18:01:03 Procedure Notes None recorded. Medical Equipment None Reported. Allergies Allergen ID Allergen Name Allergen Category Reaction Reaction Severity Criticality Documentation Date Start Date Code Code System Note Provider Name and Address Organization Details Recorded Time 98802 insect venom environme nt anaphylax is Not available Not available 10/14/2015 BEES Ramon gold MA [facility] 7 08:46:57 [id number] honey bee venom medicatio n anaphylax is Not available Not available 04/17/2017 80398 7 RxNorm Ramon gold MA [facility] 7 08:46:52 Medications Name Sig Start Date Stop Date Status Note LastModified by Organization Details LastModified Time cyclobenz aprine 10 mg tablet Take 1 tablet every day by oral route at bedtime. 09/08 completed Not Available Not Available Not Available doxycycli ne hyclate 100 mg capsule TWO TIMES DAILY active Not Available Not Available No t Available azithromy christiano 250 mg tablet TAKE 2 TABLETS (500 MG) BY ORAL ROUTE ONCE DAILY FOR 1 DAY THEN 1 TABLET (250 MG) BY ORAL ROUTE ONCE DAILY FOR 4 DAYS 12/24 completed Not Available Not Available Not Available aspirin 325 mg tablet Take 2 tablets 3 times a day by oral route as needed. 07/13 completed for back pain Not Available Not Available Not Available ibuprofen 200 mg capsule Take 1 capsule every 4 hours by oral route as needed. 04/17 completed caused increase in BP Not Available Not Available Not Available prednison e 20 mg tablet Take 2 tablets every day by oral route as directed for 7 days. 12/24 completed Not Available Not Available Not Available fluoroura cil 5 % topical cream Apply 1 applicat ion as needed by topical route as directed for 15 days. active Not Available Not Available No t Available amlodipin e 5 mg tablet TAKE 1 TABLET DAILY active Not Available Not Available No t Available tramadol 50 mg tablet EVERY SIX HOURS, NEEDED 09/02 completed RECORDED 09/02/20 13 3:38PM BY RAMON GONZALEZ MA, OFFICE VISIT; Not Available Not Available Not Available magnesium oxide 400 mg (241.3 mg magnesium ) tablet Take 1 tablet every day by oral route at bedtime. 09/08 completed Not Available Not Available Not Available Combivent 18 mcg-103 mcg/actua tion aerosol inhaler EVERY FOUR HOURS, NEEDED 03/19 completed RECORDED 03/19/20 13 1:32PM BY MO LILLY MD, PHONE ENCOUNTE R; Not Available Not Available Not Available gabapenti n 300 mg capsule Take 2 capsules every day by oral route as directed for 30 days. 12/24 completed Not Available Not Available Not Available albuterol sulfate HFA 90 mcg/actua tion aerosol inhaler USE 2 INHALATI ONS EVERY 4 TO 6 HOURS DIRECTED 2020 active Not Available Not Available Not Avai lable doxycycli ne hyclate 100 mg tablet Take 1 tablet twice a day by oral route for 7 days. 10/31 completed Not Available Not Available Not Available albuterol (refill) 90 mcg/actua tion aerosol inhaler FOUR TIMES DAILY, NEEDED 2012 active RECORDED 12/31/19 14 7:01AM BY HÉCTOR ADAM I, OFFICE VISIT; Not Available Not Available Not Available Mucinex 600 mg tablet, extended release Take 1 tablet every 12 hours by oral route for 10 days. 10/19 completed Not Available Not Available Not Available cyclobenz aprine 5 mg tablet 11/16 completed Not Available Not Available Not Available Spiriva with HandiHale r 18 mcg and inhalatio n capsules INHALE THE CONTENTS OF 1 CAPSULE IN THE HANDIHAL ER ONCE DAILY active Not Available Not Available No t Available varenicli ne tartrate 1 mg tablet BID 01/11 completed RECORDED 07/05/20 07 11:17AM BY MO LILLY MD, MEDICATI ON AUTO-PERLA CTIVATIO N; Not Available Not Available Not Available Zostavax (PF) 19,400 unit/0.65 mL subcutane ous suspensio n 10/19 completed Not Available Not Available Not Available Chantix Starting Month Micah 0.5 mg (11)-1 mg (42) tablets in dose pack BID 01/09 completed RECORDED 07/05/20 07 11:17AM BY MO LILLY MD, MEDICATI ON AUTO-PERLA CTIVATIO N; Not Available Not Available Not Available Symbicort 160 mcg-4.5 mcg/actua tion HFA aerosol inhaler USE 2 INHALATI ONS TWICE A DAY DIRECTED active Not Available Not Available No t Available diclofena c 1 % topical gel NEEDED active RECORDED 12/31/19 14 7:01AM BY HÉCTOR ADAM I, OFFICE VISIT; Not Available Not Available Not Available GaviLyte- N 420 gram oral solution active Not Available Not Available Not Available Combivent Respimat 4 TIMES PER DAY FOR COPD 09/02 completed RECORDED 09/02/20 13 3:55PM BY MO LILLY MD, OFFICE VISIT; Not Available Not Available Not Available Breo Ellipta 100 mcg-25 mcg/dose powder for inhalatio n Inhale 1 puff every day by inhalati on route for 30 days. 10/31 completed Not Available Not Available Not Available Afluria 7928-6347 (PF) 45 mcg (15 mcg x 3)/0.5 mL intramusc ular syringe active Not Available Not Available Not Available Fluarix Quad (PF) 60 mcg (15 mcg x 4)/0.5 mL IM syringe active Not Available Not Available Not Available Afluria 8119-9936 (PF) 45 mcg(15 mcg x 3)/0.5 mL intramusc ular syringe 10/19 completed Not Available Not Available Not Available Afluria 4963-2247 (PF) 45 mcg(15 mcg x 3)/0.5 mL intramusc ular syringe 11/16 completed Not Available Not Available Not Available Shingrix (PF) 50 mcg/0.5 mL intramusc ular suspensio n, kit 03/03 completed Not Available Not Available Not Available Vitals Date Recorded Body height Body mass index (BMI) Body weight Oxygen saturation Oxygen saturation in Arterial blood by Pulse oximetry Heart rate Body temperature Systolic blood pressure Diastolic blood pressure Provider Name and Address Organization Details Last Updated DateTime 8 173.355 cm 21.3 kg/m2 95452.5 2 g 97 % 97 % 81 /min 98.9 [degF] 149 mm[Hg] 76 mm[Hg] Yessica Sorenson [facility] 8 08:24:46 Date Recorded Body height Body mass index (BMI) Body weight Body temperature Heart rate Oxygen saturation Oxygen saturation in Arterial blood by Pulse oximetry Systolic blood pressure Diastolic blood pressure Provider Name and Address Organization Details Last Updated DateTime 9 173.355 cm 21.3 kg/m2 40496.5 2 g 98.3 [degF] 77 /min 96 % 96 % 148 mm[Hg] 82 mm[Hg] Ramon gold MA [facility] [place] 9 08:52:23 Date Recorded Body height Body mass index (BMI) Body weight Heart rate Oxygen saturation Oxygen saturation in Arterial blood by Pulse oximetry Body temperature Systolic blood pressure Diastolic blood pressure Systolic blood pressure Diastolic blood pressure Provider Name and Address Organization Details Last Updated DateTime 9 173.355 cm 20.5 kg/m2 46911.2 6 g 71 /min 94 % 94 % 98.2 [degF] 167 mm[Hg] 79 mm[Hg] 158 mm[Hg] 79 mm[Hg] Heena Pink [facility] [place] 9 09:10:43 Date Recorded Systolic blood pressure Diastolic blood pressure Provider Name and Address Organization Details Last Updated DateTime 05/05/2019 142 mm[Hg] 72 mm[Hg] Geovani Benson PA-C [address] [address], [place], [address], [facility] 05/05/2019 09:19:59 Date Recorded Body height Body mass index (BMI) Body weight Body temperature Oxygen saturation Oxygen saturation in Arterial blood by Pulse oximetry Heart rate Systolic blood pressure Diastolic blood pressure Provider Name and Address Organization Details Last Updated DateTime 9 173.355 cm 20.9 kg/m2 36071.6 2 g 97 [degF] 97 % 97 % 82 /min 146 mm[Hg] 68 mm[Hg] Ramon gold MA [facility] 9 08:44:41 Date Recorded Systolic blood pressure Diastolic blood pressure Provider Name and Address Organization Details Last Updated DateTime 09/08/2019 130 mm[Hg] 77 mm[Hg] Geovani Benson PA-C [address], [address], [facility] 09/08/2019 09:19:27 Date Recorded Body height Body mass index (BMI) Body weight Heart rate Oxygen saturation Oxygen saturation in Arterial blood by Pulse oximetry Body temperature Systolic blood pressure Diastolic blood pressure Provider Name and Address Organization Details Last Updated DateTime 0 173.355 cm 19.6 kg/m2 97402.0 1 g 75 /min 98 % 98 % 97.52 [degF] 162 mm[Hg] 85 mm[Hg] Ramon gold MA [facility] 0 08:38:54 Date Recorded Systolic blood pressure Diastolic blood pressure Provider Name and Address Organization Details Last Updated DateTime 08/03/2020 120 mm[Hg] 78 mm[Hg] Ivy Salas [facility] 08/03/2020 13:08:37 Social History Question Answer Notes LastModified by Organizat ion Details LastModified Time Tobacco Smoking Status Current Every Day Smoker SHILPA Monaco [facility] 10/13/2014 09:16:57 Do You Have An Advance Directive? Yes Information not available 07/26/2020 What Is Your Level Of Alcohol Consumption? Occasional 15 Drinks Per Week Information not available 03/03/2019 Animal Exposure? Yes Information not available 10/13/2014 Do You Wear A Helmet When Biking? Yes Information not available 07/26/2020 Is Blood Transfusion Acceptable In An Emergency? Yes Information not available 10/13/2014 What Is Your Level Of Caffeine Consumption? Occasional 2 Cups Coffee Per Day Information not available 03/03/2019 How Much Tobacco Do You Chew? None Information not available 10/13/2014 Are You Currently Employed? Yes Information not available 10/13/2014 What Type Of Diet Are You Following? SPECIFIC Semi Gluten-free Due To GF's Celiac Information not available 12/28/2017 Which Illicit Or Recreational Drugs Have You Used? None Information not available 10/14/2015 Do You Or Have You Ever Used E-cigarettes Or Vape? Former User Of Electronic Cigarettes Information not available 07/26/2020 Education Post Graduate Informa tion not available 10/13/2014 What Is Your Occupation? [employer] Information not available 09/08/2019 Have There Been Any Changes To Your Family Or Social Situation? No Information not available 07/26/2020 How Many Days In The Past Year Have You Had A Heavy Drinking Consumption (4+ Female, 5+ Male)? 0 Information not available 10/13/2014 Are There Any Guns Present In Your Home? No Information not available 07/26/2020 What Is Your Home Situation? Other Information not available 07/26/2020 Legally Blind In One Or Both Eyes? No Information not available 10/13/2014 Live Alone Or With Others? With Others Girlfriend (Nighat) Information not available 10/13/2014 Do You Take Precautions To Prevent Distracted Driving? Yes Information not available 10/14/2015 How Often Do You Need To Have Someone Help You When You Read Instructions, Pamphlets, Or Other Written Material From Your Doctor Or Pharmacy? Never Information not available 10/14/2015 Have You Served In The ? No Information not available 10/19/2016 Have You Or Anyone In Your Household Had Any Of The Following Symptoms In The Last 14 Days: Sore Throat, Cough, Chills, Body Aches For Unknown Reasons, Shortness Of Breath For Unknown Reasons, Loss Of Smell, Loss Of Taste, Fever At Or Greater Than 100 Degrees Fahrenheit? No Information not available 07/26/2020 Are You Or Anyone In Your Household A Health Care Provider Or Emergency Responder? No Information not available 07/26/2020 To The Best Of Your Knowledge Have You Been In Close Proximity To Any Individual Who Tested Positive For COVID-19? No Information not available 07/26/2020 Marital Status Domestic Partner Information not available 10/13/2014 What Was The Date Of Your Most Recent Tobacco Screening? 07/26/2020 Information not available 07/26/2020 Total Number Of Stairs In Home 0 Information not available 10/13/2014 Do You Use Protection During Sex? No Information not available 10/13/2014 Difficulty Reading? No Information not available 10/13/2014 Seat Belts Used Routinely Yes Information not available 10/13/2014 Are You Sexually Active? Yes Information not available 10/13/2014 Smoke Alarm In Home Yes Information not available 10/14/2015 At What Age Did You Start Smoking Tobacco? 21 Information not available 07/26/2020 Are You Passively Exposed To Smoke? No Information not available 10/14/2015 Do You Or Have You Ever Used Smokeless Tobacco? Never Used Smokeless Tobacco Information not available 07/26/2020 How Much Tobacco Do You Smoke? 1 PPD Information not available 07/26/2020 What Types Of Sporting Activities Do You Participate In? Golf, Biking Information not available 07/26/2020 Do You Use Any Illicit Or Recreational Drugs? No Information not available 07/26/2020 Do You Use Sunscreen Routinely? Yes Information not available 10/13/2014 How Many Years Have You Smoked Tobacco? 44 Information not available 03/03/2019 Sex: Unknown Functional Status Question Answer Note LastModified by Organizat ion Details LastModified Time Do you have difficulty walking or climbing stairs? No Information not available 07/26/2020 Difficulty driving at night? No Information not available 10/13/2014 Are you able to care for yourself? Yes Information not available 10/13/2014 Do you have difficulty dressing or bathing? No Information not available 07/26/2020 What is your exercise level? Moderate 5-6 x week; walking Information not available 10/13/2014 Mental Status Question Answer Note LastModified by Organization D etails LastModified Time Do you have difficulty concentrating, remembering or making decisions? No Information no t available 07/26/2020 Family History Relationship Description Onset Age of this Age Resolved Age Notes LastModified by Organization Details LastModified Time Mother Arthritis sabdulraheem Not avai lable 02/17/2016 09:29:48 Mother Malignant neoplasm of skin Not available 2019 08:03:07 Notes:No FH colon/prostate c ancer Medical History Condition Response Other N Gout N Blood Diseases N Kidney Stones N Hyperthyroidism N Breast Cancer N Lung Disease N COPD Y Depression N Hypothyroidism N Defects or Inherited Disease N Anesthesia Complications N Headaches/Migraines N Varicose Veins N Anxiety Disorder N Obesity N Vision or Eye Problems N Arthritis Y Head Injury/Concussion N Polyps N Infertility N Congenital Anomalies N Acid Reflux (GERD) N Cancer Y Stroke N ADHD N Endometriosis N High Cholesterol N Liver Disease N Fibromyalgia N Kidney Disease N Heart Problems N Ear or Hearing Problems N Hospitalizations N Thyroid Problems N GI Problems N Acne N Skin Problems Y Eating Disorder N Anemia N Constipation N Bladder Problems N Mental Illness N Ovarian Cancer N Diabetes N Blood Transfusions N Seizures/Epilepsy N Tuberculosis N AIDS/HIV N Congestive Heart Failure (CHF) N Eczema N Diverticulitis N Abuse/Domestic Violence N Allergies N Asthma N Reflux/GERD N Hepatitis N Pulmonary Embolism N Hypertension N Osteoporosis N Chicken Pox N Autism Spectrum Disorder (ASD) N Immunizations Vaccine Type Date Status Note Provider Nam e and Address Organization Details Recorded Time Influenza, split virus, trivalent, preservative 4 completed Not Available [facility] 01/09/2022 18:38:15 Influenza, split virus, trivalent, preservative 5 completed Not Available [facility] 01/09/2022 18:38:15 zoster live 6 completed Not Available [facility] 01/09/2022 18:38:15 influenza, unspecified formulation 6 completed Not Available [facility] 01/09/2022 18:38:15 influenza, unspecified formulation 7 completed Not Available [facility] 01/09/2022 18:38:15 zoster live 8 completed Not Available [facility] 01/09/2022 18:38:15 zoster live 8 completed Not Available [facility] 01/09/2022 18:38:15 Td (adult), 2 Lf tetanus toxoid, preservative free, adsorbed 7 completed Not Available [facility] 01/09/2022 18:38:15 pneumococcal polysaccharide PPV23 9 completed Not Available [facility] 01/09/2022 18:38:15 Influenza, split virus, trivalent, preservative 1 completed Not Available [facility] 01/09/2022 18:38:15 influenza, seasonal, intradermal, preservative free 2 completed Not Available [facility] 01/09/2022 18:38:15 Influenza, split virus, trivalent, preservative 3 completed Not Available [facility] 01/09/2022 18:38:15 Tdap 3 completed Not Available [facility] 01/09/2022 18:38:15 Influenza, split virus, quadrivalent, PF 8 completed Not Available [facility] 10/11/2019 02:22:16 Influenza, split virus, quadrivalent, PF 9 completed Not Available [facility] 10/11/2019 02:22:10 Influenza, split virus, quadrivalent, PF 0 completed Ramon Dickson MA [facility] 07/26/2020 09:33:53 Past Encounters Encounter ID Performer Location Encounter Start Date Encounter Closed Date Diagnosis/Indication Diagnosis SNOMED-CT Code Diagnosis ICD10 Code Diagnosis Note [id number] [facility] [address] [facility] [place] [address] 12/12/2006 00:00:00 [id number] [employer] er[facility] [address] [facility] [place] [address] 07/23/2008 00:00:00 [id number] [facility] erce [address] [facility] [place] [address] 07/27/2009 00:00:00 [id number] auto[facility]Comm erce [address] [facility] [place] [address] 07/31/2011 00:00:00 [id number] auto[facility] er[facility] [address] [facility] [place] [address] 08/27/2012 00:00:00 [id number] [facility] [facility] [address] [facility] [place] [address] 09/02/2013 00:00:00 [id number] [facility] [facility] [address] [facility] [place] [address] 12/30/2013 00:00:00 [id number] Heidi Acostadina Main Office [address] [facility] [address] [place] [address] 10/13/2014 09:06:18 10/13/2014 09:55:36 Essential hypertension 22019155 Adult heal th examination 921351020 Chronic ob structive pulmonary disease 51383880 Tobacco de pendence syndrome 31952507 Screening for malignant neoplasm of prostate 738677433 Hyperlipidemia 59365879 Basal cell carcinoma of skin 648725427 Left ear pinna [id number] Ramon staples MA Main Office [address] [address] [place] [address] 03/03/2015 10:16:18 03/03/2015 11:08:05 Neck pain 59260118 Fatigue 02307474 [id number] Mo Lilly MD Main Office [address] [address] [place] [address] 10/14/2015 08:46:12 10/14/2015 09:49:29 Adult health examination 333401217 Z00.00 Essential hypertension 40552424 I10 Screening for malignant neoplasm of colon 878869770 Z12.11 Varicella vaccination 68 173072 Z23 Chronic ob structive pulmonary disease 92453986 J44.9 Neck pain 15163333 M54.2 Tobacco de pendence syndrome 44329809 F17.290 [id number] Toney Mauricio MD Main Office [address] [address] [place] [address] 02/17/2016 09:22:07 02/17/2016 10:41:00 Bronchitis 62204929 J40 Chronic ob structive pulmonary disease 23720368 J44.9 [id number] Mo Lilly MD Main Office [address] [address] [place] [address] 10/19/2016 08:41:09 10/19/2016 10:37:15 Adult health examination 366430587 Z00.00 Essential hypertension 33564757 I10 Good home readings. Will continue to monitor without meds Chronic ob structive pulmonary disease 88100585 J44.9 Neck pain 87761214 M54.2 Tobacco de pendence syndrome 45773780 F17.290 Raynaud's phenomenon 266 496318 I73.00 Hyperlipidemia 74395075 E78.5 Fatigue 76008406 R53.83 Acute exac erbation of chronic bronchitis 688085330 J44.1 [id number] Mo Lilly MD Main Office [address] [address] [place] [address] 04/17/2017 08:41:08 04/17/2017 09:33:01 Chronic obstructive pulmonary disease 07164304 J44.9 Essential hypertension 73194829 I10 Good home readings. Will continue to monitor without meds Muscle fasciculation 824 05267 R25.3 [id number] Karin Aguilar Main Office [address] [address] [place] [address] 05/01/2017 09:37:14 05/01/2017 10:39:16 Essential hypertension 95083279 I10 Good home readings. Will continue to monitor without meds Hyperlipidemia 78084165 E78.5 Muscle fasciculation 824 86969 R25.3 [id number] Mo Lilly MD Main Office [address] [facility] [address] [place] [address] 11/16/2017 13:54:47 11/16/2017 15:01:39 Acute exacerbation of chronic obstructive pulmonary disease 018688955 J44.1 sx x 7 days with worsening cough and SOB, hx COPD. will tx with zpak and prednisone . Likely no role for flu testing or tamiflu at this point 7 days after onset of illness. hydration, rest, meds as directed. LS imrpoved after neb- duoneb and 1 albuterol. [id number] Mo Lilly MD Main Office [address] [address] [place] [address] 12/28/2017 10:21:26 12/28/2017 11:30:53 Adult health examination 736686218 Z00.00 Essential hypertension 87949553 I10 Good home readings. Will continue to monitor without meds Screening for malignant neoplasm of lung 993148111 Z12.2 Tobacco de pendence syndrome 86660838 F17.290 Chronic ob structive pulmonary disease 31404462 J44.9 Hyperlipidemia 09899670 E78.5 [id number] Mo Lilly MD Main Office [address] [address] [place] [address] 07/20/2018 08:06:32 07/20/2018 09:16:58 Chronic obstructive pulmonary disease 91647269 J44.9 Essential hypertension 95369231 I10 Good home readings. Will continue to monitor without meds Needs infl uenza immunization 347985754 Z23 Cramp in l ower leg associated with rest 881526806 G47.62 Tobacco de pendence syndrome 91059832 F17.290 Hyperlipidemia 82921009 E78.5 Fatigue 13996177 R53.83 Tick bite 06701319 S80.8 62A [id number] Mo Lilly MD Main Office [address] [address] [place] [address] 03/03/2019 08:31:15 03/03/2019 09:43:17 Adult health examination 052531288 Z00.00 Essential hypertension 77812448 I10 Tobacco de pendence syndrome 30114850 F17.290 Chronic ob structive pulmonary disease 57919704 J44.9 Hyperlipidemia 82008863 E78.5 Screening for malignant neoplasm of lung 477253347 Z87.891 Eligible patients must have >=30 pack years Macrocytos is - no anemia 977986944 D75.89 [id number] Geovani Benson PA-C Main Office [address] [facility] [address] [place] [address] 05/05/2019 08:32:52 05/05/2019 09:31:01 Essential hypertension 92069439 I10 bp stable at home, borderline elevated here - trending down here c multiple readings, likely component of white coat htn. cont med as dir, cont to monitor at home - call us if trending up = o/w, rec bring bp monitor to next ov to compare readings [id number] Geovani Benson PA-C Main Office [address] [facility] [address] [place] [address] 09/08/2019 08:35:31 09/08/2019 09:29:52 Chronic obstructive pulmonary disease 89071737 J44.9 pt states is using proair 3-4x/day in addition to symbicort and spiriva max doses - he is doing so to relieve chest congestion /coughing fit more so than sob -- advised pt to take an expectoran t like mucinex 1-2x/day in order to decrease reliances on alb (ie, use it prn) Essential hypertension 81979953 I10 bp stable, cont med as dir Needs infl uenza immunization 692482617 Z23 Tobacco de pendence syndrome 64281320 F17.290 [id number] Mo Lilly MD Main Office [address] [address] [place] [address] 07/26/2020 08:02:07 07/26/2020 09:12:54 Adult health examination 102683010 Z00.00 Essential hypertension 03138076 I10 Needs infl uenza immunization 638157767 Z23 Chronic ob structive pulmonary disease 28235032 J44.9 Hyperlipidemia 14050102 E78.5 Tobacco de pendence syndrome 53577605 F17.290 Cramp in l ower leg associated with rest 215919540 G47.62 Trial of compressio n stockings and drink tonic water after dinner. Fatigue [id number] R53.83 Health Concerns Section Related Observation LastModified by Organization Detai ls LastModified Time None Recorded Concern Status LastModified by Organization Details LastModified Time None Recorded Advance Directives Directive Y: Payers Encounter Date Sequence Insurance Name Policy Number Policy Fermin Covered Member ID Fermin Member ID Guarantor Name 07/20/2018 1 [place] [facility] (O) [id number] Mo Aurelio Yan [id number] Mo Aurelio Yan 03/03/2019 1 [place] [employer] [place] (O) [id number] Mo Aurelio Yan [id number] Mo Aurelio Yan 05/05/2019 1 [place] [employer] [place] ([place]) [id number] Mo Auerlio Yan [id number] Mo Aurelio Yan 09/08/2019 1 [place] [employer] [place] ([facility] [id number] Mo Aurelio Yan [id number] Mo Aurelio Yan 07/26/2020 1 [place] [employer] [place] ([facility] [id number] Mo Aurelio Yan [id number] Mo Aurelio Yan Notes Date Note Type Note Provider Name and Address Organization Details Recorded Time 8 text/html COPDReported bypatient.Onset/Timing:chr onic; chronic: has not changed Severity:not limiting Quality:symptoms worse in the evening Context:cigarette smoking Alleviating factors:relieved with bronchodilator Associated Symptoms:no dyspnea; no decrease in exercise capacityNotes:Seems more motivated for smoking cessation. Reviewed strategies for managing COPD symptoms.Hypertension F/UReported bypatient.Associated Symptoms:no dizziness; no lightheadedness; no chest pain; no shortness of breath; no palpitations; no edema; no calf pain with exertion Lifestyle:regular exercise (physical work) Medications:checks blood pressure at home, range: (120s systolic)Notes:Stable home BP. has had elevated BP in medical settings. Did not bring readings today. Here for follow up visit. Notes pain in neck and upper back, though improved. Still smoking cigarettes. Ongoing nocturnal leg cramps. Had MRI spine, vascular studies, EMG/NCT and physiatry assesment. did not respond to use of gabapentin. Mo Lilly MD [address] [address], [place], [phone], [facility] 07/20/2018 09:18:49 06/10/201 9 text/html Here for PE visit. Notes pain in neck and upper back, though improved. Still smoking cigarettes approx 1 PPD Mo Lilly MD [address] [address], [place], [phone], [facility] 03/03/2019 09:32:00 9 text/html COPDReported bypatient.Onset/Timing:chr onic; chronic: has not changed Severity:not limiting Quality:symptoms worse in the evening Context:cigarette smoking Alleviating factors:relieved with bronchodilator Associated Symptoms:no dyspnea; no decrease in exercise capacityNotes:Still no motivation for smoking cessation. Reviewed strategies for managing COPD symptoms. Still with good adherence to Spiriva and SymbicortHypertension F/UReported bypatient.Associated Symptoms:no dizziness; no lightheadedness; no chest pain; no shortness of breath; no palpitations; no edema; no calf pain with exertion Lifestyle:regular exercise (physical work)Notes:In the past he has had stable home BP. has had elevated BP in medical settings. However, notes home BP has been over 130 consistently Mo Lilly MD [address] [address], [place], [phone], [facility] 03/03/2019 09:32:00 9 text/html Hypertension F/UReported bypatient.Associated Symptoms:no dizziness; no lightheadedness; no chest pain; no shortness of breath; no palpitations; no edema; no calf pain with exertion Lifestyle:regular exercise; limiting/avoiding salt Medications:taking medications as directed; no side effects from medication; checks blood pressure at home, range: (120-130s/70s) Geovani Benson PA-C [address] [address], [place], [phone], [facility] 05/05/2019 09:27:58 9 text/html COPDReported bypatient.Onset/Timing:chr onic: has not changed Severity:mild; used nebulizer 3-4 times for this episode (prn proair) Quality:symptoms worse during the day Context:cigarette smoking; influenza vaccine today Aggravating factors:worse with cigarette smokingHypertension F/UReported bypatient.Associated Symptoms:no dizziness; no lightheadedness; no chest pain; no shortness of breath; no palpitations; no edema; no calf pain with exertion Lifestyle:regular exercise; limiting/avoiding salt Medications:taking medications as directed; no side effects from medication; checks blood pressure at home, range: (120-130s/70-80s) Geovani Benson PA-C [address] [address], [place], [address], [facility] 09/08/2019 09:38:48 0 text/html COPDReported bypatient.Onset/Timing:chr onic; chronic: has not changed Severity:not limiting Quality:symptoms worse in the evening Context:cigarette smoking Alleviating factors:relieved with bronchodilator Associated Symptoms:no dyspnea; no decrease in exercise capacityNotes:Still no motivation for smoking cessation. Reviewed strategies for managing COPD symptoms. Still with good adherence to Spiriva and SymbicortHypertension F/UReported bypatient.Associated Symptoms:no dizziness; no lightheadedness; no chest pain; no shortness of breath; no palpitations; no edema; no calf pain with exertion Lifestyle:regular exercise (physical work)Notes:In the past he has had stable home BP. has had elevated BP in medical settings. However, notes home BP has been over 130 consistently Here for PE visit. Notes pain in neck and upper back, though improved. Still smoking cigarettes approx 1 PPD. Notes continued cramping in the night. Now disrupting sleep occasionally. Has tried evening dose of muscle relaxer at night. Mo Lilly MD [address] [address], [place], [phone], [facility] 07/26/2020 09:11:21
[2024-10-08 07:40] VITALS: BP 144/60; PULSE 71; O2SAT 95; BMI 19.7
== END 2024-10-08 08:07 | disposition home or self-care (01) ==
PROVIDERS: PCP Nurse Practitioner Family; Visit Provider Nurse Practitioner Family
DX: Z00.00 Encounter for general adult medical examination without abnormal findings (principal); Z12.5 Encounter for screening for malignant neoplasm of prostate; J98.8 Other specified respiratory disorders; J44.9 Chronic obstructive pulmonary disease, unspecified; I10 Essential (primary) hypertension; F17.210 Nicotine dependence, cigarettes, uncomplicated; Z13.6 Encounter for screening for cardiovascular disorders

== ENCOUNTER → 2024-10-08 07:30 | Outpatient (BNVA) | payer MEDICARE, SELFPAY | PROVIDERS: PCP Nurse Practitioner Family; Visit Provider Nurse Practitioner Family | DX: Z00.00 Encounter for general adult medical examination without abnormal findings (principal); J98.8 Other specified respiratory disorders; J44.9 Chronic obstructive pulmonary disease, unspecified; I10 Essential (primary) hypertension; F17.210 Nicotine dependence, cigarettes, uncomplicated; Z71.6 Tobacco abuse counseling | CPT/HCPCS: 96127; 99397 ==

== ENCOUNTER 2024-10-09 10:22 | Outpatient (REF) | payer MEDICARE, SELFPAY ==
--- NOTE | ~2024-10-09 | CT_ITS ---
CLINICAL HISTORY: F17.210 - Nicotine dependence, cigarettes, uncomplicated CT lung cancer screening (LDCT) Comparison: 07/14/2024 01:03 PM EDT: CTSR: CT LUNG SCREENING Technique: Axial CT images of the chest using low-dose technique. Referring provider counseled the patient on shared decision-making for LDCT screening. Additional counseling was provided on smoking cessation. Effective radiation dose total: DLP 26.3 mGycm, CTDIvol 0.8 mGy. Findings: Lung: There is bilateral lower lobe bronchiectasis with scarring or subsegmental atelectasis. No new pulmonary lesions, solid or semi solid mass. Coronary artery calcifications: Moderate Limited upper abdomen: Unremarkable Other: None Impression: Category 2: Benign appearance Category 1: Normal; continue annual screening Category 2: Benign appearance or behavior, continue annual screening Category 3: Probably benign, [address] recommended Category 4A: Suspicious, [address] recommended; may consider PET/CT Category 4B: Suspicious, Additional diagnostics and/or tissue sampling recommended Category 4X: Suspicious, Additional diagnostics and/or tissue sampling recommended Category 0: Recalls (incomplete screen due to Incomplete coverage, Noise, Respiratory motion, Expiration, Obscured by acute abnormality) This document has been electronically signed by: Jae Franklin MD on 10/10/2024 08:28:51
== END 2024-10-09 10:23 | disposition home or self-care (01) ==
LOC: HO.CT 10:22
PROVIDERS: PCP Nurse Practitioner Family; Visit Provider Physician Assistant Medical
DX: Z12.2 Encounter for screening for malignant neoplasm of respiratory organs (principal); F17.210 Nicotine dependence, cigarettes, uncomplicated
CPT/HCPCS: 71250

== ENCOUNTER → 2024-10-09 10:24 | Outpatient (BNV) | payer MEDICARE, SELFPAY | PROVIDERS: PCP Nurse Practitioner Family; Visit Provider Specialist | DX: F17.210 Nicotine dependence, cigarettes, uncomplicated (principal) | CPT/HCPCS: 71250 ==

== ENCOUNTER 2024-10-10 08:45 | Outpatient (REF) | payer MEDICARE, SELFPAY ==
[2024-10-10 10:20] LABS: MANUAL DIFF FLAG NO
[2024-10-10 10:23] LABS: Appearance Urine Clear; Color Urine Yellow; Glucose Urine UA Negative (Negative); Leukocyte Esterase Urine Negative (Negative); Nitrite Urine Negative (Negative); Specific Gravity - Urine 1.015 (1.005-1.025); Urine Blood Negative (Negative); Urine Ketones Negative (Negative); Urine Protein Negative (Neg-Trace)
[2024-10-10 10:31] LABS: Basophils Absolute Auto 0.2 X10*3/uL (0.0-0.2); Basophils Percent Auto 2.5 % (0-2); Eosinophils Absolute Auto 0.3 X10*3/uL (0.0-0.4); Hematocrit 44.6 % (42.0-52.0); Hemoglobin 15.1 g/dl (14.0-18.0); Imm Gran Abs Auto 0.09 X10*3/uL (0.00-0.03); Imm Gran Pct Auto 1.1 % (0.0-0.4); Lymphocytes Absolute Auto 1.9 X10*3/uL (1.2-4.9); Lymphocytes Percent Auto 22.5 % (20-40); Mean Corpuscular HGB Conc 33.9 g/dl (31.0-36.0); Mean Corpuscular Hemoglobin 30.6 pg (27.0-33.0); Mean Corpuscular Volume 90.3 fL (80.0-98.0); Mean Platelet Volume 9.7 fL (9.4-12.4); Monocytes Absolute Auto 0.8 X10*3/uL (0.1-1.2); Monocytes Percent Auto 8.8 % (2-11); Neutrophils Absolute Auto 5.3 x10*3/uL (2.0-8.3); Neutrophils Percent Auto 62.1 % (45-73); Platelet Count 356 X10*3/uL (160-400); Red Blood Count 4.94 X10*6/uL (4.60-5.80); Red Cell Distribution Width 14.3 % (11.0-16.0); White Blood Count 8.6 X10*3/uL (4.8-10.8)
[2024-10-10 10:50] LABS: Alanine Aminotransferase 24 U/L (0-40); Albumin Level 4.2 g/dL (3.5-5.0); Alkaline Phosphatase 75 U/L (39-117); Anion Gap 12 (12-20); Aspartate Amino Transferase 31 U/L (5-37); Bilirubin Total 0.8 mg/dL (0.0-1.0); Blood Urea Nitrogen 8 mg/dL (9-16); Calcium 9.1 mg/dL (8.4-10.2); Carbon Dioxide 28 mmol/L (22-29); Chloride 99 mmol/L (96-108); Cholesterol 192 mg/dL (<200); Estimated Glomerular Filt Rate > 60; Glucose Fasting 92 mg/dL (60-99); HDL Cholesterol 115 mg/dL (>40); LDL Cholesterol Calculated 69 mg/dL (<100); Potassium 4.8 mmol/L (3.3-5.1); Sodium 134 mmol/L (135-145); Total Protein 7.3 g/dL (6.5-8.0); Triglycerides 43 mg/dL (<150)
[2024-10-10 10:54] LABS: TSH reflex Free T4 1.22 uIU/mL (0.32-4.0)
[2024-10-10 10:57] LABS: Prostate Specific Antigen Scr 0.45 ng/mL (<0.05-4.0)
== END 2024-10-10 08:46 | disposition home or self-care (01) ==
LOC: HO.HMGCLDS 08:45
PROVIDERS: PCP Nurse Practitioner Family; Visit Provider Nurse Practitioner Family
DX: Z00.00 Encounter for general adult medical examination without abnormal findings (principal); Z12.5 Encounter for screening for malignant neoplasm of prostate
CPT/HCPCS: 36415; 80053; 80061; 81003; 84153; 84443; 85025

== ENCOUNTER 2024-10-16 08:51 | Outpatient (REF) | payer MEDICARE, SELFPAY ==
--- NOTE | ~2024-10-16 | US_ITS ---
CLINICAL HISTORY: Z13.6 - Encounter for screening for cardiovascular disorders, smoker US Abdomen (AAA) Comparison: None Findings: Aorta proximal 1.8 cm. Aorta mid 1.7 cm. Aorta distal 1.8 cm. Right common iliac artery 0.9 cm. Left common iliac artery 1.2 cm. IMPRESSION: 1. No abdominal aortic aneurysm. This document has been electronically signed by: Jae Franklin MD on 10/17/2024 08:22:59
== END 2024-10-16 08:52 | disposition home or self-care (01) ==
LOC: HO.HMGCX 08:51
PROVIDERS: PCP Nurse Practitioner Family; Visit Provider Nurse Practitioner Family
DX: Z13.6 Encounter for screening for cardiovascular disorders (principal); F17.210 Nicotine dependence, cigarettes, uncomplicated
CPT/HCPCS: 76706

== ENCOUNTER → 2024-10-16 09:00 | Outpatient (BNV) | payer MEDICARE, SELFPAY | PROVIDERS: PCP Nurse Practitioner Family; Visit Provider Specialist | DX: Z13.6 Encounter for screening for cardiovascular disorders (principal) | CPT/HCPCS: 76706 ==

== ENCOUNTER 2024-10-20 10:26 | Outpatient (AMB) | payer MEDICARE, SELFPAY ==
[2024-10-20 10:33] VITALS: BP 168/74; PULSE 66; O2SAT 98; BMI 20.7
--- NOTE | 2024-10-20 10:33 | MHC.OFFVIS ---
Vital Signs 10/20/24 10:33 Height 5 ft 7 in Weight 132 lb 4.438 oz BMI 20.7 BP 168/74 H Blood Pressure Location Rt brachial Position Sitting Pulse 66 Pulse Source Pulse Oximeter Pulse Oximetry (%) 98 Oxygen Delivery Method Room Air Intake Visit Reasons: Pneumonia Allergies bee venom protein (honey bee) Allergy (Severe, Verified 10/20/24 10:37) Anaphylaxis HPI HPI Pneumonia: Details: Mo is a pleasant 69 year old male, current 1 ppd smoker with 50 pyh, with underlying COPD, HTN and h/o basal cell carcinoma under the care of [facility]. He was initially referred by the lung cancer screening program after abnormal chest CT which came back as a 4A. His chest CT was suggestive of aspiration pneumonia and he was treated with Augmentin on 08/08/24, noting significant improvement in symptoms. He reports productive cough with clear to whitish sputum, intermittent wheezing and dyspnea on exertion. He has been moderately controlled with Breo and Incruse, using albuterol MDI with good effect. He denies any visits to urgent care or hospitalizations related to respiratory distress. Today he presents to review chest CT results. Of note, he does have his PFT scheduled later this week. [facility], [facility] Medical History (Updated 10/20/24 @ 11:37 by Lore Rich NP) Ectatic aorta Tubular adenoma of colon (~2021) HTN (hypertension) COPD (chronic obstructive pulmonary disease) Nicotine dependence, cigarettes, uncomplicated History of basal cell cancer Surgical History History of colonoscopy History of tonsillectomy History of hernia repair History of hand surgery History of knee surgery History of basal cell carcinoma excision Social History Housing: House Patient Tobacco Use Status: Current everyday Tobacco user Tobacco use type: Cigarette Cigarette Packs Per Day: 1 Years Smoked: onset 18yo, 1ppd x 50yrs, 50pyh) e-Cigarette/Vaping Use: Never Used Second Hand Smoke Exposure: No service: Yes Current occupational status: retired Current occupation: [employer] Current occupational exposures/hazards: Yes Cognitive needs: No Hearing needs: No Vision needs: Yes Review of Systems Const Denies chills, Denies excessive sweating, Denies fever(s), Denies headache(s) and Denies night sweats Eyes Denies dry eyes, Denies irritation and Denies itchy eyes ENT Reports Normal hearing present, Denies headache(s), Denies nasal congestion, Denies nasal discharge, Denies post nasal drip and Denies sore throat Card Denies chest pain, Denies chest pain at rest, Denies chest pain with activity, Denies claudication, Denies leg edema, Reports dyspnea on exertion, Denies orthopnea and Denies paroxysmal nocturnal dyspnea Resp Denies change in phlegm color, Denies chest congestion, Reports cough, Denies hemoptysis, Denies excessive phlegm production, Denies pain on inspiration, Denies pain with cough, Reports dyspnea on exertion, Denies stridor and Reports wheezing Musc Denies myalgias Neuro Reports Normal hearing present and Denies headache(s) Endo Denies excessive sweating Paco/Lymph Denies lymphadenopathy Aller/Immun Denies itchy eyes, Denies seasonal rhinorrhea and Reports wheezing Physical Exam Vital Signs: Last Vital Signs Pulse 66 10/20/24 10:33 BP 168/74 H 10/20/24 10:33 Pulse Ox 98 10/20/24 10:33 Oxygen Delivery Method Room Air 10/20/24 10:33 BMI result Body Mass Index 20.7 Const General: cooperative, healthy appearing, comfortable, no acute distress, well developed and alert Orientation/consciousness: patient oriented x3 Limitations: no limitations HEENT Head: Yes normal to inspection, Yes normocephalic and Yes atraumatic Ears: hearing grossly normal bilaterally and external ears normal Eyes General: appearance normal, both eyes and all related structures Eyelids: Yes eyelids normal Sclerae: sclerae normal EOM: EOMs intact bilaterally Neck Neck: Yes normal visual inspection and Yes no lymphadenopathy Lymphatic: no lymphadenopathy noted Chest Chest palpation & inspection: normal inspection of the chest Resp Effort & Inspection: normal respiratory effort, able to speak in complete sentences, no audible wheezes, no cough, no stridor, not tachypneic, no tripod positioning and no use of accessory muscles Auscultation: wheezes Cardio Jugular venous distension: no JVD Rate: regular rate Rhythm: regular rhythm Skin Other: warm, dry General skin exam: no rashes or lesions noted Neuro General: patient oriented x3 Cranial nerves: Yes Normal hearing present Cognition (Neuro): normal cognition Gait exam (Neuro): Normal gait present Extrem General: Yes normal to inspection, Yes capillary refill normal, Yes no clubbing, cyanosis or edema and Yes no pedal edema Psych Appearance: grossly normal and well kempt Speech and movement: Normal speech and movement present and Clear speech present Affect: normal affect Attitude: cooperative Thought process: Normal thought process present Thought content: Normal thought content present Insight: Good insight present (Psych) Judgement: Good judgement present (Psych) Results Reviewed Results Reviewed: [address] [address] [address] Scan Report Signed Patient: Mo Heredia MR#: [id number] : 1955 Acct:[id number] Age/Sex: 69 / M ADM Date: 10/09/24 Loc: HO.CT Attending Dr: Holly Steiner PA-C Ordering Physician: Holly Steiner PA-C Date of Service: 10/09/24 Procedure(s): CT lung screen follow up Accession Number(s): [id number] cc: Mert Brewer-; Holly Steiner PA-C~ Report Number: [id number]: Total DLP = 38.00 mGy-cm CLINICAL HISTORY: F17.210 - Nicotine dependence, cigarettes, uncomplicated CT lung cancer screening (LDCT) Comparison: 07/14/2024 01:03 PM EDT: CTSR: CT LUNG SCREENING Technique: Axial CT images of the chest using low-dose technique. Referring provider counseled the patient on shared decision-making for LDCT screening. Additional counseling was provided on smoking cessation. Effective radiation dose total: DLP 26.3 mGycm, CTDIvol 0.8 mGy. Findings: Lung: There is bilateral lower lobe bronchiectasis with scarring or subsegmental atelectasis. No new pulmonary lesions, solid or semi solid mass. Coronary artery calcifications: Moderate Limited upper abdomen: Unremarkable Other: None Impression: Category 2: Benign appearance Category 1: Normal; continue annual screening Category 2: Benign appearance or behavior, continue annual screening Category 3: Probably benign, [address] recommended Category 4A: Suspicious, [address] recommended; may consider PET/CT Category 4B: Suspicious, Additional diagnostics and/or tissue sampling recommended Category 4X: Suspicious, Additional diagnostics and/or tissue sampling recommended Category 0: Recalls (incomplete screen due to Incomplete coverage, Noise, Respiratory motion, Expiration, Obscured by acute abnormality) This document has been electronically signed by: Jae Franklin MD on 10/10/2024 08:28:51 Dictated By: Jae Franklin MD Signed By: <Electronically signed by Jae Franklin MD in [place]> 10/10/24829 DD/ 7 Assessment & Plan Assessment & Plan (1) COPD (chronic obstructive pulmonary disease): Code(s): J44.9 - Chronic obstructive pulmonary disease, unspecified Category: Medical (2) Nicotine dependence, cigarettes, uncomplicated: Comment: (current smoker - onset 18yo, 1ppd x 50yrs, 50pyh) Code(s): F17.210 - Nicotine dependence, cigarettes, uncomplicated Category: Medical (3) Bronchiectasis: Code(s): J47.9 - Bronchiectasis, uncomplicated Category: Medical (4) Multiple pulmonary nodules: Code(s): R91.8 - Other nonspecific abnormal finding of lung field Category: Medical Plan On exam patient with expiratory wheezes throughout, will send in prednisone. Encouraged patient to use duoneb more frequently. PFT scheduled later this week, will review results when available. Reviewed Chest CT from last week which revealed bronchiectasis, moderate to severe emphysematous changes and stable pulmonary nodules, however prior Chest CT from June 2024, RADS4A. Will repeat in 6 months to assess stability then proceed with annual LDCT if unremarkable. Discussed importance of smoking cessation however he is not ready to quit, he is interested in trialing NRT. Will send lozenges to use PRN cravings. All questions were answered and patient is in agreement of plan. Will follow up in 3 months or sooner if needed. Orders: Orders CT chest wo IV con 6 Months F17.210 - Nicotine dependence, cigarettes, uncomplicated, R91.8 - Other nonspecific abnormal finding of lung field Medications: New prednisone see taper instructions; 40 mg Daily x3 days, 30 mg daily x3 days, 20 mg daily x3 days, 10 mg daily x3 days 10 mg PO DIRECTED 30 tabs 0RF nicotine (polacrilex) 4 mg buccal Q6H PRN 108 ea 0RF nicotine cravings Coding Level of Care Code Est Pt Level 4 (48847) Diagnoses COPD (chronic obstructive pulmonary disease) J44.9 Nicotine dependence, cigarettes, uncomplicated F17.210 Bronchiectasis J47.9 Multiple pulmonary nodules R91.8
--- OUTSIDE RECORDS SUMMARY | 2024-10-20 15:09 | XMS_ITS | Data Portability ---
Author Organization [facility], Main Office Address [address] [place] [address] Care Team Providers Care Ore Dressing Engineer Name Role Phone MO LILLY Primary Care Provider CHAVO HERNANDEZ Business Transformation Analyst ANITHA DYE Emt B GUILLERMO GARCIA Pretzel Cooker [phone] SHARATH YAN Vascular Surgeon Assessment Encounter Date [...] panel, serum 2017 018 [facility], [address] [facility], [facility], [place], [address], 8 16:59:49 TSH, serum or plasma 2017 018 [facility], [address], [address], [place], [address], 8 17:09:21 CBC w/ auto diff 2017 018 [facility], [address], [address], [place], [address], 8 14:08:57 BMP, serum or plasma 2017 018 [facility], [address], [address], [place], [address], 8 16:59:48 borrel ia burgdo rferi C6 Ab, QL, serum 2017 018 [facility], [address], [address], [place], [address], 8 09:39:32 BMP, serum or plasma 2018 019 [facility], [address], [address], [place], [address], 9 15:17:13 magnes ium, serum or plasma 2018 019 [facility], [address], [address], [place], [address], 9 15:17:18 lipid panel, serum 2018 019 [facility], [address], [address], [place], [address], 9 15:17:17 folate , serum 2018 019 [facility], [address], [address], [place], [address], 9 15:41:59 gamma- glutam yl transf erase (ggt), serum 2018 019 [facility], [address], [address], [place], [address], 9 15:17:15 mma (methy lmalon ic acid), serum 2018 019 [facility], [address], [address], [place], [address], 9 10:12:12 vitami n B12, serum 2018 019 [facility], [address], [address], [place], [address], 9 15:41:58 CBC w/ auto diff 2018 019 [facility], [address], [address], [place], [address], 9 14:07:07 BMP, serum or plasma 2019 020 [facility], [address], [address], [place], [address], 0 20:58:25 lipid panel, serum 2019 020 [facility], [address], [address], [place], [address], 0 20:58:26 CBC w/ auto diff 2019 020 [facility], [address], [address], [place], [address], 0 16:21:30 TSH, serum or plasma 2019 020 [facility], [address], [address], [place], [address], 0 21:00:37 Referral None record ed. Procedures [...] the last 12 months . 2018 019 [facility], [address] [place], [address], 9 13:25:37 Medication Orders Symbic ort 160 mcg-4. 5 mcg/ac tuatio n HFA aeroso l inhale r 2017 018 [facility], [address] [place] [address], [id number], 8 09:11:48 Spiriv a with HandiH aler 18 mcg and inhala tion capsul es 2017 018 [facility]45903, [address] [place] [address], [id number], 8 09:11:49 magnes ium oxide 400 mg (241.3 mg magnes ium) tablet 2017 018 [facility], [address] [place] [address], [id number], 9 08:44:59 cyclob enzapr ine 10 mg tablet 2017 018 [facility], [address] [place] [address], [id number], 9 08:44:55 amlodi pine 5 mg tablet 2018 019 [facility] #15762, [address] [place] [address], [id number], 9 09:20:25 Symbic ort 160 mcg-4. 5 mcg/ac tuatio n HFA aeroso l inhale r 2019 020 [facility], [address] [place] [address], [address], 0 09:01:28 Patient Targets Encounter Date Encounter Id Patient Goals Patient Target Last Modified By Organization Details Last Modified Time 05/05/2019 [id number] senior care goal of Blood Pressure 140 / 90 Not available Not available Not available senior care goal of Exercise level Not available Not available Not available senior care goal of Tobacco Smoking Status Not available [...] By Organization Details Last Modified Time 07/20/2018 [id number] deciding about using medicines to quit smoking pheuth Not available 07/20/2018 09:11:42 Quitting Tobacco : Care Instructions [facility] Not available 07/20/2018 09:11:42 chronic obstructive pulmonary disease (COPD): care instructions [facility] Not available 07/20/2018 09:11:42 learning about copd and how to prevent lung infections phelmuth Not available 07/20/2018 09:11:42 high blood pressure: care instructions [facility] Not available 07/20/2018 09:11:42 learning about high blood pressure phelmuth Not available 07/20/2018 09:11:42 tick bite: care instructions [facility] Not available 07/20/2018 09:14:27 03/03/2019 [id number] deciding about using medicines to quit smoking phelmuth Not available 03/03/2019 09:48:36 Quitting Tobacco : [facility] Not available 03/03/2019 09:48:36 high blood pressure: care instructions phelmuth Not available 03/03/2019 09:48:36 learning about high blood pressure pheuth Not available 03/03/2019 09:48:36 Lung Cancer Screening pheuth Not available 03/03/2019 09:09:52 lung cancer screening eligibility assessment* [facility]arter Not available 04/16/2019 13:21:51 high [facility] 03/03/2019 09:05:54 chronic obstructive pulmonary disease (COPD): care instructions [facility] Not available 03/03/2019 09:05:54 learning about copd and how to prevent lung infections pheuth Not available 03/03/2019 09:05:54 spirometry testing* [facility] Not available 03/03/2019 09:56:04 05/05/2019 [id number] Medications (OTC , herbal therapies, supplements) reviewed and reconciled with patient and or caregiver, including potential side effects, drug interactions, instructions, and the consequences of not taking medication. Reviewed potential barriers to medication adherence, such as side effects from medication or cost of medication. Patient will follow up and keep appointment as scheduled. pmadden Not available 05/05/2019 09:23:59 09/08/2019 [id number] Quitting Tobacco : Care Instructions pmadden Not [...] with greater than 50% of the visit [id number] with the patient and/or family providing counseling and/or coordination of care. pmadden Not available 09/08/2019 09:36:43 07/26/2020 [id number] deciding about using medicines to quit smoking pheuth Not available 07/26/2020 09:01:28 Quitting Tobacco : Care Instructions [facility] Not available 07/26/2020 09:01:27 high blood pressure: care instructions [facility] Not available 07/26/2020 08:42:05 learning about high blood pressure pheuth Not available 07/26/2020 08:42:05 nurse assessment * - Please call to get home BP readings in a few weeks. Was elevated in the office. If still elevated, should change to amlodipine+beneza pril 5/10mg. thanks! [facility] Not available 08/27/2020 16:27:55 high cholesterol : care instructions [facility] Not available 07/26/2020 09:01:27 chronic obstructive pulmonary disease (COPD): care instructions [facility] Not available 07/26/2020 09:01:27 learning about copd and how to prevent lung infections pheuth Not available 07/26/2020 09:01:27 Reason for Referral None Reported. Results Created Date Observation Date Name Description Value Unit Range Abnormal Flag Note LastModifiedBy Organization Detail LastModifiedTime 07/22/20 18 07/22/2018 CBC w/ auto diff WBC 8.3 K/mm3 (4.0-1 1.0) Not Available [facility] [address] [place], [address], 07/22/2018 14:08:57 07/22/20 18 07/22/2018 CBC w/ auto diff RBC 5.04 M/mm3 (4.70- 6.10) Not Available [facility] [address] [place], [address], 07/22/2018 14:08:57 07/22/20 18 07/22/2018 CBC w/ auto diff HGB 15.7 gm/dL (13.7- 16.5) Not Available [facility] [address] [place], [address], 07/22/2018 14:08:57 07/22/20 18 07/22/2018 CBC w/ auto diff HCT 48.0 % (40.5- 48.5) Not Available [facility] [address] [place], [address], 07/22/2018 14:08:57 07/22/20 18 07/22/2018 CBC w/ auto diff MCV 95.2 fL (80.0- 94.0) high Not Available [facility] [address] [place], [address], 07/22/2018 14:08:57 07/22/20 18 07/22/2018 CBC w/ auto diff MCH 31.2 pg (27.0- 34.0) Not Available [facility] [address] [place], [address], 07/22/2018 14:08:57 07/22/20 18 07/22/2018 CBC w/ auto diff MCHC 32.7 g/dL (33.0- 37.0) low Not Available [facility] [address] [place], [address], 07/22/2018 14:08:57 07/22/20 18 07/22/2018 CBC w/ auto diff plt 405 K/mm3 (150-4 60) Not Available [facility] [address] [place], [address], 07/22/2018 14:08:57 07/22/20 18 07/22/2018 CBC w/ auto diff RDW-SD 48.7 fL (<47.0 ) high Not Available [facility] [address] [place], [address], 07/22/2018 14:08:57 07/22/20 18 07/22/2018 CBC w/ auto diff MPV 9.8 fL (9.4-1 2.4) Not Available [facility] [address] [place], [address], 07/22/2018 14:08:57 07/22/20 18 07/22/2018 CBC w/ auto diff automated NRBC 0.0 #/100 _WBC' s Not Available [facility] [address] [place], [address], 07/22/2018 14:08:57 07/22/20 18 07/22/2018 CBC w/ auto diff abs. NRBC 0.0 K/mm3 Not Available [facility] [address] [place], [address], 07/22/2018 14:08:57 07/22/20 18 07/22/2018 CBC w/ auto diff neut # 4.7 K/mm3 (1.3-7 .0) Not Available [facility] [address] [place], [address], 07/22/2018 14:08:57 07/22/20 18 07/22/2018 CBC w/ auto diff lymph # 2.3 K/mm3 (0.8-3 .1) Not Available [facility] [address] [place], [address], 07/22/2018 14:08:57 07/22/20 18 07/22/2018 CBC w/ auto diff mono# 0.9 K/mm3 (0.4-1 .3) Not Available [facility] [address] [place], [address], 07/22/2018 14:08:57 07/22/20 18 07/22/2018 CBC w/ auto diff eo # 0.2 K/mm3 (0.0-0 .4) Not Available [facility] [address] [place], [address], 07/22/2018 14:08:57 07/22/20 18 07/22/2018 CBC w/ auto diff baso # 0.2 K/mm3 (0.0-0 .1) high Not Available [facility] [address] [place], [address], 07/22/2018 14:08:57 07/22/20 18 07/22/2018 CBC w/ auto diff abs. imm gran 0.1 K/mm3 Not Available [facility] [address] [place], [address], 07/22/2018 14:08:57 07/22/20 18 07/22/2018 CBC w/ auto diff neut 56.2 % (44-76 ) Not Available [facility] [address] [place], [address], 07/22/2018 14:08:57 07/22/20 18 07/22/2018 CBC w/ auto diff lymph 28.1 % (15-43 ) Not Available [facility] [address] [place], [address], 07/22/2018 14:08:57 07/22/20 18 07/22/2018 CBC w/ auto diff monocyte 10.7 % (4.5-1 0.5) high Not Available [facility] [address] [place], [address], 07/22/2018 14:08:57 07/22/20 18 07/22/2018 CBC w/ auto diff eo 2.0 % (0-6) Not Available [facility] [address] [place], [address], 07/22/2018 14:08:57 07/22/20 18 07/22/2018 CBC w/ auto diff baso 2.4 % (0-2) high Not Available [facility] [address] [place], [address], 07/22/2018 14:08:57 07/22/20 18 07/22/2018 CBC w/ auto diff imm gran 0.6 % (0.0-0 .6) Not Available [facility] [address] [place], [address], 07/22/2018 14:08:57 07/22/20 18 07/22/2018 BMP, serum or plasm a glucose 90 mg/dL (70-99 ) Not Available [facility] [address] [place], [address], 07/22/2018 16:59:48 07/22/20 18 07/22/2018 BMP, serum or plasm a BUN 8 mg/dL (8-23) Not Available [facility] [address] [place], [address], 07/22/2018 16:59:48 07/22/20 18 07/22/2018 BMP, serum or plasm a creatinine 0.7 mg/dL (0.7-1 .2) Not Available [facility] [address] [place], [address], 07/22/2018 16:59:48 07/22/20 18 07/22/2018 BMP, serum or plasm a sodium 139 mmol/ L (133-1 45) Not Available [facility] [address] [place], [address], 07/22/2018 16:59:48 07/22/20 18 07/22/2018 BMP, serum or plasm a potassium 4.6 mmol/ L (3.6-5 .2) Not Available [facility] [address], [address], 07/22/2018 16:59:48 07/22/20 18 07/22/2018 BMP, serum or plasm a chloride 98 mmol/ L (98-10 7) Not Available [facility] [address] [place], [address], 07/22/2018 16:59:48 07/22/20 18 07/22/2018 BMP, serum or plasm a bicarbonate 27 mmol/ L (22-29 ) Not Available [facility] [address] [place], [address], 07/22/2018 16:59:48 07/22/20 18 07/22/2018 BMP, serum or plasm a anion gap 14 (4-17) Not Available [facility] [address], [address], 07/22/2018 16:59:48 07/22/20 18 07/22/2018 BMP, serum or plasm a calcium 9.5 mg/dL (8.6-1 0.5) Not Available [facility] [address] [place], [address], 07/22/2018 16:59:48 07/22/20 18 07/22/2018 BMP, serum [...] Available [facility] [address] [place], [address], 07/22/2018 16:59:48 07/22/20 18 07/22/2018 BMP, serum [...] Available [facility] [address] [place], [address], 07/22/2018 16:59:48 07/22/20 18 07/22/2018 lipid panel , serum cholesterol, total 173 mg/dL (<200) Not Available [facility] [address] [place], [address], 07/22/2018 16:59:49 07/22/20 18 07/22/2018 lipid panel , serum triglyceride 71 mg/dL (<150) Not Available [facility] [address] [place], [address], 07/22/2018 16:59:49 07/22/20 18 07/22/2018 lipid panel , serum HDL chol 101 mg/dL (>39) Not Available [facility] [address] [place], [address], 07/22/2018 16:59:49 07/22/20 18 07/22/2018 lipid panel , serum LDL cholesterol, calculated 58 mg/dL (0-130 ) Not Available [facility] [address] [place], [address], 07/22/2018 16:59:49 07/22/20 18 07/22/2018 lipid panel , serum non HDL cholesterol (calc) 72 mg/dL (<160) Not Available [facility] [address] [place], [address], 07/22/2018 16:59:49 07/22/20 18 07/22/2018 TSH, serum or plasm a TSH 1.10 mIU/m L (0.40- 4.00) Not Available [facility] [address] [place], [address], 07/22/2018 17:09:21 07/22/20 18 07/24/2018 borre bela [...] divina Not Available [facility] [address] [place], [address], 07/24/2018 09:39:32 03/03/20 19 03/03/2019 CBC w/ auto diff WBC 9.2 K/mm3 (4.0-1 1.0) Not Available [facility] [address], [address], 03/03/2019 14:07:06 03/03/20 19 03/03/2019 CBC w/ auto diff RBC 5.12 M/mm3 (4.70- 6.10) Not Available [facility] [address] [place], [address], 03/03/2019 14:07:06 03/03/20 19 03/03/2019 CBC w/ auto diff HGB 16.0 gm/dL (13.7- 17.1) Not Available [facility] [address] [place], [address], 03/03/2019 14:07:06 03/03/20 19 03/03/2019 CBC w/ auto diff HCT 48.5 % (40.5- 50.0) Not Available [facility] [address] [place], [address], 03/03/2019 14:07:06 03/03/20 19 03/03/2019 CBC w/ auto diff MCV 94.7 fL (80.0- 94.0) high Not Available [facility] [address] [place], [address], 03/03/2019 14:07:06 03/03/20 19 03/03/2019 CBC w/ auto diff MCH 31.3 pg (27.0- 34.0) Not Available [facility] [address] [place], [address], 03/03/2019 14:07:06 03/03/20 19 03/03/2019 CBC w/ auto diff MCHC 33.0 g/dL (33.0- 37.0) Not Available [facility] [address] [place], [address], 03/03/2019 14:07:06 03/03/20 19 03/03/2019 CBC w/ auto diff plt 345 K/mm3 (150-4 60) Not Available [facility] [address], [address], 03/03/2019 14:07:06 03/03/20 19 03/03/2019 CBC w/ auto diff RDW-SD 46.5 fL (<47.0 ) Not Available [facility] [address] [place], [address], 03/03/2019 14:07:06 03/03/20 19 03/03/2019 CBC w/ auto diff MPV 10.2 fL (9.4-1 2.4) Not Available [facility] [address] [place], [address], 03/03/2019 14:07:06 03/03/20 19 03/03/2019 CBC w/ auto diff automated NRBC 0.0 #/100 _WBC' s Not Available [facility] [address] [place], [address], 03/03/2019 14:07:06 03/03/20 19 03/03/2019 CBC w/ auto diff abs. NRBC 0.0 K/mm3 Not Available [facility] [address] [place], [address], 03/03/2019 14:07:06 03/03/20 19 03/03/2019 BMP, serum or plasm a glucose 91 mg/dL (70-99 ) Not Available [facility] [address] [place], [address], 03/03/2019 15:17:13 03/03/2003/03/2019 BMP, serum or plasm a BUN 10 mg/dL (8-23) Not Available [facility] [address], [address], 03/03/2019 15:17:13 03/03/2003/03/2019 BMP, serum or plasm a creatinine 0.7 mg/dL (0.7-1 .2) Not Available [facility] [address], [address], 03/03/2019 15:17:13 03/03/20 19 03/03/2019 BMP, serum or plasm a sodium 137 mmol/ L (133-1 45) Not Available [facility] [address], [address], 03/03/2019 15:17:13 03/03/20 19 03/03/2019 BMP, serum or plasm a potassium 4.9 mmol/ L (3.6-5 .2) Not Available [facility] [address] [place], [address], 03/03/2019 15:17:13 03/03/20 19 03/03/2019 BMP, serum or plasm a chloride 98 mmol/ L (98-10 7) Not Available [facility] [address] [place], [address], 03/03/2019 15:17:13 03/03/20 19 03/03/2019 BMP, serum or plasm a bicarbonate 28 mmol/ L (22-29 ) Not Available [facility] [address] [place], [address], 03/03/2019 15:17:13 03/03/20 19 03/03/2019 BMP, serum or plasm a anion gap 11 (4-17) Not Available [facility] [address] [place], [address], 03/03/2019 15:17:13 03/03/20 19 03/03/2019 BMP, serum or plasm a calcium 9.8 mg/dL (8.6-1 0.5) Not Available [facility] [address] [place], [address], 03/03/2019 15:17:13 03/03/20 19 03/03/2019 BMP, serum [...] Available [facility] [address] [place], [address], 03/03/2019 15:17:13 03/03/20 19 03/03/2019 BMP, serum [...] Available [facility] [address] [place], [address], 03/03/2019 15:17:13 03/03/20 19 03/03/2019 gamma -glut amyl trans feras e (ggt) , serum ggtp 35 U/L (8-61) Not Available [facility] [address] [place], [address], 03/03/2019 15:17:15 03/03/2003/03/2019 lipid panel , serum cholesterol, total 188 mg/dL (<200) Not Available [facility] [address] [place], [address], 03/03/2019 15:17:17 03/03/2003/03/2019 lipid panel , serum triglyceride 50 mg/dL (<150) Not Available [facility] [address] [place], [address], 03/03/2019 15:17:17 03/03/2003/03/2019 lipid panel , serum HDL chol 121 mg/dL (>39) Not Available [facility] [address] [place], [address], 03/03/2019 15:17:17 03/03/2003/03/2019 lipid panel , serum LDL cholesterol, calculated 57 mg/dL (0-130 ) Not Available [facility] [address] [place], [address], 03/03/2019 15:17:17 03/03/2003/03/2019 lipid panel , serum non HDL cholesterol (calc) 67 mg/dL (<160) Not Available [facility] [address] [place], [address], 03/03/2019 15:17:17 03/03/2003/03/2019 magne sium, serum or [...] [facility] [address], [place], [address], 03/03/2019 15:17:18 03/03/2003/03/2019 vitam in B12, serum vitamin B12 514 pg/mL (232-1 245) Not Available [facility] [address], [place], [address], 03/03/2019 15:41:58 03/03/2003/03/2019 folat e, serum folic acid 19.0 NG/mL (>3.9) Not Available [facility] [address], [place], [address], 03/03/2019 15:41:59 03/03/2003/07/2019 mma (meth ylmal onic acid) , serum methylmaloni c acid, serum 0.25 Refer ence range : < EQ 0.40 Unit: nmol/ mL (NOTE ) = ----- ----- ----- ----A DDITI ONAL INFOR MATIO N---- ----- ----- ----- This test was sascha oped and its perfo rmanc e taisha cteri stics deter mined by [facility] in a sally r consi stent with KEVIN mason. This test has not been clear ed or appro marcy by the U.S. Food and Drug Admin istra tion. Test Perfo rmed by: [facility], [address], [place] [address] Labor atory Direc tor: Joshua yarbrough III, M.D. Not Available [facility] [address] [place], [address], 03/07/2019 10:12:12 03/03/2003/03/2019 lefty metry testi ng* Spirometry abnorm al abnormal Not Available In-Office Order Internal Use Only DO Not Attach Compendium DO Not Attach Compendium, Do Not Delete/merge, [id number] 03/03/2019 09:00:06 07/26/2007/26/2020 CBC w/ auto diff WBC 8.5 K/mm3 (4.0-1 1.0) Not Available [facility] [address] [place], [address], 07/26/2020 16:21:30 07/26/2007/26/2020 CBC w/ auto diff RBC 5.06 M/mm3 (4.70- 6.10) Not Available [facility] [address] [place], [address], 07/26/2020 16:21:30 07/26/2007/26/2020 CBC w/ auto diff HGB 15.2 gm/dL (13.7- 17.1) Not Available [facility] [address] [place], [address], 07/26/2020 16:21:30 07/26/2007/26/2020 CBC w/ auto diff HCT 48.4 % (40.5- 50.0) Not Available [facility] [address] [place], [address], 07/26/2020 16:21:30 07/26/20 20 07/26/2020 CBC w/ auto diff MCV 95.7 fL (80.0- 94.0) high Not Available [facility] [address] [place], [address], 07/26/2020 16:21:30 07/26/20 20 07/26/2020 CBC w/ auto diff MCH 30.0 pg (27.0- 34.0) Not Available [facility] [address] [place], [address], 07/26/2020 16:21:30 07/26/20 20 07/26/2020 CBC w/ auto diff MCHC 31.4 g/dL (33.0- 37.0) low Not Available [facility] [address], [address], 07/26/2020 16:21:30 07/26/20 20 07/26/2020 CBC w/ auto diff plt 369 K/mm3 (150-4 60) Not Available [facility] [address] [place], [address], 07/26/2020 16:21:30 07/26/20 20 07/26/2020 CBC w/ auto diff RDW-SD 47.3 fL (<47.0 ) high Not Available [facility] [address] [place], [address], 07/26/2020 16:21:30 07/26/20 20 07/26/2020 CBC w/ auto diff MPV 10.3 fL (9.4-1 2.4) Not Available [facility] [address], [address], 07/26/2020 16:21:30 07/26/20 20 07/26/2020 CBC w/ auto diff automated NRBC 0.0 #/100 _WBC' s Not Available [facility] [address] [place], [address], 07/26/2020 16:21:30 07/26/20 20 07/26/2020 CBC w/ auto diff abs. NRBC 0.0 K/mm3 Not Available [facility] [address] [place], [address], 07/26/2020 16:21:30 07/26/20 20 07/26/2020 CBC w/ auto diff neut # 5.1 K/mm3 (1.3-7 .0) Not Available [facility] [address] [place], [address], 07/26/2020 16:21:30 07/26/20 20 07/26/2020 CBC w/ auto diff lymph # 2.2 K/mm3 (0.8-3 .1) Not Available [facility] [address] [place], [address], 07/26/2020 16:21:30 07/26/20 20 07/26/2020 CBC w/ auto diff mono# 0.9 K/mm3 (0.4-1 .3) Not Available [facility] [address] [place], [address], 07/26/2020 16:21:30 07/26/20 20 07/26/2020 CBC w/ auto diff eo # 0.1 K/mm3 (0.0-0 .4) Not Available [facility] [address] [place], [address], 07/26/2020 16:21:30 07/26/20 20 07/26/2020 CBC w/ auto diff baso # 0.2 K/mm3 (0.0-0 .1) high Not Available [facility] [address] [place], [address], 07/26/2020 16:21:30 07/26/20 20 07/26/2020 CBC w/ auto diff abs. imm gran 0.1 K/mm3 Not Available [facility] [address], [address], 07/26/2020 16:21:30 07/26/20 20 07/26/2020 CBC w/ auto diff neut 59.8 % (44-76 ) Not Available [facility] [address] [place], [address], 07/26/2020 16:21:30 07/26/20 20 07/26/2020 CBC w/ auto diff lymph 25.5 % (15-43 ) Not Available [facility] [address] [place], [address], 07/26/2020 16:21:30 07/26/20 20 07/26/2020 CBC w/ auto diff monocyte 10.2 % (4.5-1 0.5) Not Available [facility] [address] [place], [address], 07/26/2020 16:21:30 07/26/20 20 07/26/2020 CBC w/ auto diff eo 1.4 % (0-6) Not Available [facility] [address] [place], [address], 07/26/2020 16:21:30 07/26/20 20 07/26/2020 CBC w/ auto diff baso 2.5 % (0-2) high Not Available [facility] [address] [place], [address], 07/26/2020 16:21:30 07/26/20 20 07/26/2020 CBC w/ auto diff imm gran 0.6 % Not Available [facility] [address] [place], [address], 07/26/2020 16:21:30 07/26/20 20 07/26/2020 BMP, serum or plasm a glucose 88 mg/dL (70-99 ) Not Available [facility] [address] [place], [address], 07/26/2020 20:58:24 07/26/20 20 07/26/2020 BMP, serum or plasm a BUN 9 mg/dL (8-23) Not Available [facility] [address] [place], [id number], 07/26/2020 20:58:24 07/26/20 20 07/26/2020 BMP, serum or plasm a creatinine 0.6 mg/dL (0.7-1 .2) low Not Available [facility] [address] [place], [id number], 07/26/2020 20:58:24 07/26/20 20 07/26/2020 BMP, serum or plasm a sodium 135 mmol/ L (133-1 45) Not Available [facility] [address] [place], [id number], 07/26/2020 20:58:24 07/26/20 20 07/26/2020 BMP, serum or plasm a potassium 4.9 mmol/ L (3.6-5 .2) Not Available [facility] [address] [place], [id number], 07/26/2020 20:58:24 07/26/20 20 07/26/2020 BMP, serum or plasm a chloride 94 mmol/ L (98-10 7) low Not Available [facility] [facility] [address] [place], [address], 07/26/2020 20:58:24 07/26/20 20 07/26/2020 BMP, serum or plasm a bicarbonate 27 mmol/ L (22-29 ) Not Available [facility] [address] [place], [address], 07/26/2020 20:58:24 07/26/20 20 07/26/2020 BMP, serum or plasm a anion gap 14 (4-17) Not Available [facility] [address] [place], [address], 07/26/2020 20:58:24 07/26/20 20 07/26/2020 BMP, serum or plasm a calcium 9.7 mg/dL (8.6-1 0.5) Not Available [facility] [address] [place], [address], 07/26/2020 20:58:24 07/26/20 20 07/26/2020 BMP, serum or plasm a est GFR non 106 mL/mi n/1.7 3_M2 Not Available [facility] [address] [place], [address], 07/26/2020 20:58:24 07/26/20 20 07/26/2020 BMP, serum [...] [facility] [address] [place], [address], 07/26/2020 20:58:24 07/26/20 20 07/26/2020 lipid panel , serum cholesterol, total 199 mg/dL (<200) Not Available [facility] [address] [place], [address], 07/26/2020 20:58:26 07/26/20 20 07/26/2020 lipid panel , serum triglyceride 51 mg/dL (<150) Not Available [facility] [address] [place], [address], 07/26/2020 20:58:26 07/26/20 20 07/26/2020 lipid panel , serum HDL chol 142 mg/dL (>39) Not Available [facility] [address] [place], [address], 07/26/2020 20:58:26 07/26/20 20 07/26/2020 lipid panel , serum LDL cholesterol, calculated 47 mg/dL (0-130 ) Not Available [facility] [address] [place], [address], 07/26/2020 20:58:26 07/26/20 20 07/26/2020 lipid panel , serum non HDL cholesterol (calc) 57 mg/dL (<160) Not Available [facility] [address], [place], [address], 07/26/2020 20:58:26 07/26/20 20 07/26/2020 TSH, serum or plasm a TSH 1.05 uIU/m L (0.4-4 .00) Not Available [facility] [address] [place], [address], 07/26/2020 21:00:37 04/29/20 19 04/29/2019 CT chest [...] -No nodule s. LEFT lung: -3 mm cocoa bean roaster helper ior right apex nodule , image 34. [...] ural scarri ng noted in the left cocoa bean roaster helper ior upper lobe. There are subtle tree-i n-bud micron odules noted in the cocoa bean roaster helper omedia l right middle lobe and superi or aspect left lower lobe. Small foci of endobr onchia l mucous pluggi ng noted in the latera l right lower lobe inferi lyn, as well as the most medial left lower lobe and inferi or cocoa bean roaster helper ior left upper lobe. No pneumo thorax [...] There are are 3 discre te small cocoa bean roaster helper ior fat-co ntaini ng diaphr agmati c [...] sugges ting indole nt infect ion. WSN: [id number] Dictat ed By: Frandy Crawford rd, MD Dictat ed Date/T mg: 10:19 a Review ed By: Frandy Crawford rd, MD Signed By: Frandy Crawford rd, MD Signed Date/T mg: 10:19 am Transc ribed By: CSB Transc ribed Date/T mg: 10:19 am Patien t Class[facility] [address], [place], [address], 05/05/2019 09:14:11 06/03/20 20 06/03/2020 CT chest [...] ity-Sa fety/R esour es/Saloni gRADS) . WSN: [id number] Orderi ng Physic brian: Mo Monahan Dictat ed By: Terry Jara MD Dictat ed Date/T mg: 10:09 a Review ed By: Terry Jara MD Signed By: Terry Jara MD Signed Date/T mg: 10:09 am Transc ribed By: CONSTANCE Transc ribed Date/T mg: 10:02 am Patien t Class: Outpat ient [facility] (Outpt Imaging) [address] [place] [address], [address], 06/03/2020 15:15:07 06/29/20 21 06/29/2021 CT chest [...] sed tree-i n-bud nodula rity in the cocoa bean roaster helper ior aspect of the left lower lobe [...] sed tree-i n-bud nodula rity along the cocoa bean roaster helper ior aspect of the left lower lobe. [...] I agree with this report . WSN: [id number] Orderi ng Physic brian: Mo Monahan Dictat ed By: Abdi CHRISTY, Polo Lorenzo Dictat ed Date/T mg: 10:06 a Review ed By: Neto almanzar MD, Rodrick zapata Signed By: Rodrick Duque i, MD Signed Date/T mg: 10:11 am Transc ribed By: CONSTANCE Transc ribed Date/T mg: 9:19 am Patien t Class: Outpat [facility] (Outpt Imaging) [address] [place], [address], 07/04/2021 18:01:03 Result Notes None recorded. Problems Name Problem SNOMED Code Status Onset Date Resolution Date Notes Provider Name and Address Organization Details Recorded Time Acute bronchit is 18711176 Completed 200804/30/2014 RECORDED 07/27/20 09 7:51AM BY RAMON GONZALEZ MA, GERARDO ON/ADDEN DUM [place] Matos [facility] 6 09:03:58 Chronic bronchit is 69454120 Completed 201204/30/2014 RECORDED 09/02/20 13 3:18PM BY RAMON GONZALEZ MA, GERARDO ON/ADDEN DUM [place] Matos [facility] 6 09:03:58 Joint pain 87074288 Completed 201104/30/2014 RECORDED 08/27/20 12 12:39PM BY RAMON GONZALEZ MA, ANNOTSHANTEL ON/ADDEN DUM [place] Matos, [facility] 6 09:03:58 Screenin g for malignan t neoplasm of colon Completed 201304/30/2014 RECORDED 12/31/19 14 7:01AM BY GERARDO DEUTSCH ON/ADDEN DUM [place] Matos, [facility] 6 09:03:59 Disorder of skin and/or subcutan eous tissue 07168873 Completed 201304/30/2014 RECORDED 12/31/19 14 7:01AM BY GERARDO DEUTSCH ON/ADDEN DUM [place], [facility] 6 09:03:58 Malaise and fatigue 584513213 Completed 201304/30/2014 RECORDED 12/31/19 14 7:01AM BY GERARDO DEUTSCH ON/ADDEN DUM [place], [facility] 6 09:03:58 Influenz a vaccine needed 63288795122 06 Completed 201104/30/2014 RECORDED 08/27/20 12 2:29PM BY RAMON GONZALEZ MA, OFFICE VISIT [place], [facility] 6 09:03:58 General examinat ion of patient Completed 200804/30/2014 RECORDED 07/27/20 09 7:51AM BY RAMON GONZALEZ MA, GERARDO ON/ADDEN DUM [place], [facility] 6 09:03:59 Renewal of prescrip tion Completed 201204/30/2014 RECORDED 09/02/20 13 3:18PM BY RAMON GONZALEZ MA, ANNOTATI ON/ADDEN DUM [place] Matos, [facility] 6 09:03:59 Active or passive immuniza tion Completed 200804/30/2014 RECORDED 07/27/20 09 8:44AM BY MO LILLY MD, OFFICE VISIT [place], [facility] 6 09:03:58 Sprain of carpomet acarpal joint 328848752 Completed 201104/30/2014 RECORDED 08/27/20 12 12:40PM BY RAMON GONZALEZ MA, ANNOTSHANTEL ON/ADDEN DUM [place], [facility] 6 09:03:58 Administ ration of diphther ia and tetanus vaccine Completed 201304/30/2014 RECORDED 12/31/19 14 7:01AM BY GERARDO DEUTSCH ON/ADDEN DUM [place] Mat[place], [facility] 6 09:03:58 Acute bronchit is 24603730 Completed 200805/01/2014 RECORDED 07/27/20 09 7:51AM BY RAMON GONZALEZ MA, ANNOTSHANTEL ON/ADDEN DUM [place] Mat[place], [facility] 6 09:03:58 Chronic bronchit is 50953792 Completed 201205/01/2014 RECORDED 09/02/20 13 3:18PM BY RAMON GONZALEZ MA, ANNOTATI ON/ADDEN DUM [place] Mat[place], [facility] 6 09:03:58 Joint pain 71844331 Completed 201105/01/2014 RECORDED 08/27/20 12 12:39PM BY RAMON GONZALEZ MA, ANNOTSHANTEL ON/ADDEN DUM [place] Mat[place], [facility] 6 09:03:58 Screenin g for malignan t neoplasm of colon Completed 201305/01/2014 RECORDED 12/31/19 14 7:01AM BY GERARDO DEUTSCH ON/ADDEN DUM [place], [facility] 6 09:03:59 Disorder of skin and/or subcutan eous tissue 99956270 Completed 201305/01/2014 RECORDED 12/31/19 14 7:01AM BY GERARDO DEUTSCH ON/ADDEN DUM [place], [facility] 6 09:03:58 Malaise and fatigue 633736569 Completed 201305/01/2014 RECORDED 12/31/19 14 7:01AM BY GERARDO DEUTSCH ON/ADDEN DUM [place], [facility] 6 09:03:58 Influenz a vaccine needed 94561364465 06 Completed 201105/01/2014 RECORDED 08/27/20 12 2:29PM BY RAMON GONZALEZ MA, OFFICE VISIT [place], [facility] 6 09:03:58 General examinat ion of patient Completed 200805/01/2014 RECORDED 07/27/20 09 7:51AM BY RAMON GONZALEZ MA, GERARDO ON/ADDEN DUM [place], [facility] 6 09:03:59 Renewal of prescrip tion Completed 201205/01/2014 RECORDED 09/02/20 13 3:18PM BY RAMON GONZALEZ MA, ANNOTSHANTEL ON/ADDEN DUM [place] Matos, [facility] 6 09:03:59 Active or passive immuniza tion Completed 200805/01/2014 RECORDED 07/27/20 09 8:44AM BY MO LILLY MD, OFFICE VISIT [place] Matos [facility] 6 09:03:58 Sprain of carpomet acarpal joint 926246753 Completed 201105/01/2014 RECORDED 08/27/20 12 12:40PM BY RAMON GONZALEZ MA, ANNOTATI ON/ADDEN DUM [place] Matos [facility] 6 09:03:58 Administ ration of diphther ia and tetanus vaccine Completed 201305/01/2014 RECORDED 12/31/19 14 7:01AM BY HÉCTOR ADAM I, ANNOTATI ON/ADDEN DUM [place] Matos [facility] 6 09:03:58 Basal cell carcinom a of skin 200265401 Active Not Available [facility] 2 18:38:15 Neck pain 35593413 Completed 10/19/2016 [place] Matos [facility] 7 08:47:51 Fatigue 18545866 Completed 03/01/2016 [place] Matos [facility] 6 09:03:59 Bronchit is 01865510 Completed 10/19/2016 [place] Matos [facility] 7 08:47:43 Acute bronchit is 98405944 Completed 200804/07/2014 RECORDED 07/27/20 09 7:51AM BY RAMON GONZALEZ MA, ANNOTATI ON/ADDEN DUM [place] Matos [facility] 6 09:03:58 Chronic bronchit is 40032820 Completed 201204/07/2014 RECORDED 09/02/20 13 3:18PM BY RAMON GONZALEZ MA, ANNOTATI ON/ADDEN DUM [place] Matos, [facility] 6 09:03:58 Adult health examinat ion Completed 201303/01/2016 [place], [facility] 6 09:03:59 Joint pain 89300018 Completed 201104/07/2014 RECORDED 08/27/20 12 12:39PM BY RAMON GONZALEZ MA, ANNOTATI ON/ADDEN DUM [place] Matos, [facility] 6 09:03:58 Screenin g for malignan t neoplasm of colon Completed 201304/07/2014 RECORDED 12/31/19 14 7:01AM BY GERARDO DEUTSCH ON/ADDEN DUM [place] Matos, [facility] 6 09:03:59 Chronic obstruct divina pulmonar y disease 20253430 Active 2013 Not Available [facility] 2 18:38:15 Elevated blood-pr essure reading without diagnosi s of hyperten judy 836567125 Completed 201310/13/2014 RECORDED 12/31/19 14 7:01AM BY HÉCTOR ADAM I, OFFICE VISIT [place] Matos, [facility] 6 09:03:58 Disorder of skin and/or subcutan eous tissue 63946557 Completed 201304/07/2014 RECORDED 12/31/19 14 7:01AM BY HÉCTOR ADAM I, JOSEATI ON/ADDEN DUM [place] Matos, [facility] 6 09:03:58 Malaise and fatigue 810945782 Completed 201304/07/2014 RECORDED 12/31/19 14 7:01AM BY HÉCTOR ADAM I, ANNOTATI ON/ADDEN DUM [place] Mtaos, [facility] 6 09:03:58 Influenz a vaccine needed 94202133243 06 Completed 201104/07/2014 RECORDED 08/27/20 12 2:29PM BY RAMON GONZALEZ MA, OFFICE VISIT [place] Matos, [facility] 6 09:03:58 General examinat ion of patient Completed 200804/07/2014 RECORDED 07/27/20 09 7:51AM BY RAMON GONZALEZ MA, ANNOTATI ON/ADDEN DUM [place] Mat[place], [facility] 6 09:03:59 Inguinal hernia 521114774 Active 2013 Not Available [facility] 2 18:38:15 Hyperlip idemia 97160166 Active 2013 Not Available [facility] 2 18:38:15 [facility] hyperten judy 10371075 Active 2013 Not Available [facility] 2 18:38:15 Renewal of prescrip tion Completed 201204/07/2014 RECORDED 09/02/20 13 3:18PM BY RAMON GONZALEZ MA, ANNOTATI ON/ADDEN DUM [place] Matos, [facility] 6 09:03:58 Active or passive immuniza tion Completed 200804/07/2014 RECORDED 07/27/20 09 8:44AM BY MO LILLY MD, OFFICE VISIT [place] Matos, [facility] 6 09:03:58 Sprain of carpomet acarpal joint 200790681 Completed 201104/07/2014 RECORDED 08/27/20 12 12:40PM BY RAMON I CHARLIE GONZALEZ MA, ANNOTATI ON/ADDEN DUM [place] Matos [facility] 6 09:03:58 Administ ration of diphther ia and tetanus vaccine Completed 201304/07/2014 RECORDED 12/31/19 14 7:01AM BY GERARDO DEUTSCH ON/ADDEN DUM [place] Matos [facility] 6 09:03:58 Tobacco dependen ce syndrome 19931570 Active 2013 Not Available [facility] 2 18:38:15 Problem Notes None recorded. Procedures Surgical History Date Name Laterality Status Provider Name and Address Organization Details Recorded Time 09/24/19 20 excision of basal cell carcinoma completed Ramon duarte MA [facility] 07/26/2020 08:36:48 03/17/20 16 Colonoscopy completed Ramon duarte MA [facility] 10/19/2016 08:51:51 03/17/20 16 Colonoscopy & polypectomy completed Ramon duarte MA [facility] 05/01/2017 09:42:37 11/23/19 16 Cancer Surgery completed Ramon duarte MA [facility] 10/19/2016 08:52:23 11/23/19 15 Cancer Surgery completed Ramon duarte MA [facility] 10/14/2015 09:10:48 10/05/19 15 Cancer Surgery completed Ramon duarte MA [facility] 03/03/2019 08:49:29 12/07/19 11 Joint Replacement completed Ramon duarte MA [facility] 12/28/2017 10:31:30 Hernia Repair completed Ramon duarte MA [facility] 10/13/2014 09:16:57 Tonsillectomy completed Ramon duarte MA [facility] 10/13/2014 09:16:57 Imaging Results Imaging Date Name Status LastModified by Organiz ation Details LastModified Time 04/29/2019 CT chest ldct lung program completed [facility] (Outpt Imaging) [address] [place], [address], 05/05/2019 09:14:11 06/03/2020 CT chest ldct lung program completed [facility] (Outpt Imaging) [address] [place], [address], 06/03/2020 15:15:07 06/29/2021 CT chest ldct lung program completed [facility] (Outpt Imaging) [address] [place], [address], 07/04/2021 18:01:03 Procedure Notes None recorded. Medical Equipment None Reported. Allergies Allergen ID Allergen Name Allergen Category Reaction Reaction Severity Criticality Documentation Date Start Date Code Code System Note Provider Name and Address Organization Details Recorded Time 98465 insect venom environme nt anaphylax is Not available Not available 10/14/2015 62095 UNK BEES Ramon gold MA [facility] 7 08:46:57 49272 honey bee venom medicatio n anaphylax is Not available Not available 04/17/2017 92763 7 RxNorm Ramon gold MA [facility] 7 08:46:52 Medications Name Sig Start Date [...] Not Available Not Available Not Available Afluria 3897-7663 (PF) 45 mcg (15 mcg x 3)/0.5 mL intramusc ular syringe active Not Available Not Available Not Available Fluarix Quad (PF) 60 mcg (15 mcg x 4)/0.5 mL IM syringe active Not Available Not Available Not Available Afluria (PF) 45 mcg(15 mcg x 3)/0.5 mL intramusc ular syringe 10/19 completed Not Available Not Available Not Available Afluria 8587-1902 (PF) 45 mcg(15 mcg x 3)/0.5 mL [...] Updated DateTime 8 173.355 cm 21.3 kg/m2 55931.5 2 g 97 % 97 % 81 /min 98.9 [degF] 149 mm[Hg] 76 mm[Hg] Yessica Sorenson [facility] 8 08:24:46 Date Recorded Body height Body mass index (BMI) Body weight Body temperature Heart rate Oxygen saturation Oxygen saturation in Arterial blood by Pulse oximetry Systolic blood pressure Diastolic blood pressure Provider Name and Address Organization Details Last Updated DateTime 9 173.355 cm 21.3 kg/m2 15602.5 2 g 98.3 [degF] 77 /min 96 % 96 % 148 mm[Hg] 82 mm[Hg] Ramon gold [facility] 9 08:52:23 Date Recorded Body height Body mass index (BMI) Body weight Heart rate Oxygen saturation Oxygen saturation in Arterial blood by Pulse oximetry Body temperature Systolic blood pressure Diastolic blood pressure Systolic blood pressure Diastolic blood pressure Provider Name and Address Organization Details Last Updated DateTime 9 173.355 cm 20.5 kg/m2 52277.2 6 g 71 /min 94 % 94 % 98.2 [degF] 167 mm[Hg] 79 mm[Hg] 158 mm[Hg] 79 mm[Hg] [facility] 9 09:10:43 Date Recorded Systolic blood pressure Diastolic blood pressure Provider Name and Address Organization Details Last Updated DateTime 05/05/2019 142 mm[Hg] 72 mm[Hg] Geovani Benson PA-C [address], [address], [facility] 05/05/2019 09:19:59 Date Recorded Body height Body mass index (BMI) Body weight Body temperature Oxygen saturation Oxygen saturation in Arterial blood by Pulse oximetry Heart rate Systolic blood pressure Diastolic blood pressure Provider Name and Address Organization Details Last Updated DateTime 9 173.355 cm 20.9 kg/m2 64449.6 2 g 97 [degF] 97 % 97 % 82 /min 146 mm[Hg] 68 mm[Hg] Ramon gold MA [facility] 9 08:44:41 Date Recorded Systolic blood pressure Diastolic blood pressure Provider Name and Address Organization Details Last Updated DateTime 09/08/2019 130 mm[Hg] 77 mm[Hg] Geovani Benson PA-C [address] [facility] [address], [place], [address], [facility] 09/08/2019 09:19:27 Date Recorded Body height Body mass index (BMI) Body weight Heart rate Oxygen saturation Oxygen saturation in Arterial blood by Pulse oximetry Body temperature Systolic blood pressure Diastolic blood pressure Provider Name and Address Organization Details Last Updated DateTime 0 173.355 cm 19.6 kg/m2 30261.0 1 g 75 /min 98 % 98 % 97.52 [degF] 162 mm[Hg] 85 mm[Hg] Ramon gold MA [facility] 0 08:38:54 Date Recorded Systolic blood pressure Diastolic blood pressure Provider Name and Address Organization Details Last Updated DateTime 08/03/2020 120 mm[Hg] 78 mm[Hg] Ivy Salas [facility] 08/03/2020 13:08:37 Social History Question Answer Notes LastModified by Organizat ion Details LastModified Time Tobacco Smoking Status Current Every Day Smoker [place], [facility] 10/13/2014 09:16:57 Do You Have An Advance [...] available 10/13/2014 What Is Your Occupation? [employer] Information not available 09/08/2019 Have There Been [...] colon/prostate c ancer Medical History Condition Response Gout N Other N Kidney Stones N Blood Diseases N Hyperthyroidism N Breast Cancer N COPD Y Depression N Lung Disease N Hypothyroidism N Defects or Inherited Disease N Anesthesia Complications N Headaches/Migraines N Anxiety Disorder N Varicose Veins N Obesity N Vision or Eye Problems N Arthritis Y Head Injury/Concussion N Polyps N Infertility N Congenital Anomalies N Acid Reflux (GERD) N Cancer Y Stroke N ADHD N Endometriosis N High Cholesterol N Liver Disease N Fibromyalgia N Kidney Disease N Heart Problems N Ear or Hearing Problems N Hospitalizations N Thyroid Problems N GI Problems N Acne N Eating Disorder N Skin Problems Y Anemia N Constipation N Bladder Problems N Mental Illness N Diabetes N Ovarian Cancer N Blood Transfusions N Seizures/Epilepsy N Tuberculosis N AIDS/HIV N Congestive Heart Failure (CHF) N Eczema N Abuse/Domestic Violence N Diverticulitis N Asthma N Allergies N Reflux/GERD N Hepatitis N Pulmonary Embolism N Hypertension N Chicken Pox N Autism Spectrum Disorder (ASD) N Osteoporosis N Immunizations Vaccine Type Date Status Note Provider Nam e and Address Organization Details Recorded Time Influenza, split virus, trivalent, preservative 4 completed Not Available [facility] 01/09/2022 18:38:15 Influenza, split virus, trivalent, preservative 5 completed Not Available [facility] 01/09/2022 18:38:15 zoster live 6 completed Not Available [facility] 01/09/2022 18:38:15 influenza, unspecified formulation 6 completed Not Available [facility] 01/09/2022 18:38:15 influenza, unspecified formulation 7 completed Not Available [facility] 01/09/2022 18:38:15 zoster live 8 completed Not Available [facility] 01/09/2022 18:38:15 zoster live 8 completed Not Available [facility] 01/09/2022 18:38:15 Td (adult), 2 Lf tetanus toxoid, preservative free, adsorbed 7 completed Not Available [facility] 01/09/2022 18:38:15 pneumococcal polysaccharide PPV23 9 completed Not Available [facility] 01/09/2022 18:38:15 Influenza, split virus, trivalent, preservative 1 completed Not Available [facility] 01/09/2022 18:38:15 influenza, seasonal, intradermal, preservative free 2 completed Not Available [facility] 01/09/2022 18:38:15 Influenza, split virus, trivalent, preservative 3 completed Not Available [facility] 01/09/2022 18:38:15 Tdap 3 completed Not Available [facility] 01/09/2022 18:38:15 Influenza, split virus, quadrivalent, PF 8 completed Not Available [facility] 10/11/2019 02:22:16 Influenza, split virus, quadrivalent, PF 9 completed Not Available [facility] 10/11/2019 02:22:10 Influenza, split virus, quadrivalent, PF 0 completed Ramon Dickson [facility] 07/26/2020 09:33:53 Past Encounters Encounter ID Performer Location Encounter Start Date Encounter Closed Date Diagnosis/Indication Diagnosis SNOMED-CT Code Diagnosis ICD10 Code Diagnosis Note [id number] [employer]Comm erce [address] [facility] [place] [id number] 12/12/2006 00:00:00 [id number] auto[employer] erce [address] [facility] [place] [address] 07/23/2008 00:00:00 [id number] auto[employer] erce [address] [facility] [place] [address] 07/27/2009 00:00:00 [id number] auto[employer]Comm erce [address] [facility] [place] [id number] 07/31/2011 00:00:00 [id number] auto[employer]Comm erce [address] [facility] [place] [id number] 08/27/2012 00:00:00 [id number] auto[employer] erce [address] [facility] [place] [id number] 09/02/2013 00:00:00 [id number] auto[employer] erce [address] [facility] [place] [id number] 12/30/2013 00:00:00 [id number] Heidi Acostadina Main Office [address] [facility] [address] [place] [id number] 10/13/2014 09:06:18 10/13/2014 09:55:36 Essential hypertension 57173527 Adult heal th examination 112062701 Chronic ob structive pulmonary disease 67845567 Tobacco de pendence syndrome 92452525 Screening for malignant neoplasm of prostate 590073664 Hyperlipidemia 29361792 Basal cell carcinoma of skin 637010943 Left ear pinna [id number] Ramon staples [place] Main Office [address] [address] [place] [id number] 03/03/2015 10:16:18 03/03/2015 11:08:05 Neck pain 03377035 Fatigue 96733987 [id number] Mo Lilly MD Main Office [address] [facility] [address] [place] [id number] 10/14/2015 08:46:12 10/14/2015 09:49:29 Adult health examination 084613998 Z00.00 Essential hypertension 94308900 I10 Screening for malignant neoplasm of colon 920786312 Z12.11 Varicella vaccination 68 968433 Z23 Chronic ob structive pulmonary disease 83419218 J44.9 Neck pain 41134370 M54.2 Tobacco de pendence syndrome 25040358 F17.290 [id number] Toney Mauricio MD Main Office [address] [address] [place] [id number] 02/17/2016 09:22:07 02/17/2016 10:41:00 Bronchitis 00888058 J40 Chronic ob structive pulmonary disease 07757533 J44.9 [id number] Mo Lilly MD Main Office [address] [address] [place] [id number] 10/19/2016 08:41:09 10/19/2016 10:37:15 Adult health examination 163537042 Z00.00 Essential hypertension 22836953 I10 Good home readings. Will continue to monitor without meds Chronic ob structive pulmonary disease 39157867 J44.9 Neck pain 19003461 M54.2 Tobacco de pendence syndrome 24988438 F17.290 Raynaud's phenomenon 266 745732 I73.00 Hyperlipidemia 81600140 E78.5 Fatigue 88727842 R53.83 Acute exac erbation of chronic bronchitis 785428556 J44.1 [id number] Mo Lilly MD Main Office [address] [address] [place] [id number] 04/17/2017 08:41:08 04/17/2017 09:33:01 Chronic obstructive pulmonary disease 99311605 J44.9 Essential hypertension 34393932 I10 Good home readings. Will continue to monitor without meds Muscle fasciculation 824 62412 R25.3 [id number] Kairn Aguilar Main Office [address] [address] [place] [address] 05/01/2017 09:37:14 05/01/2017 10:39:16 Essential hypertension 29013592 I10 Good home readings. Will continue to monitor without meds Hyperlipidemia 51511543 E78.5 Muscle fasciculation 824 34975 R25.3 [id number] Mo Lilly MD Main Office [address] [facility] [address] [place] [address] 11/16/2017 13:54:47 11/16/2017 15:01:39 Acute exacerbation of chronic obstructive pulmonary disease 434235634 J44.1 sx x 7 days with worsening cough and SOB, hx COPD. will tx with zpak and prednisone . Likely no role for flu testing or tamiflu at this point 7 days after onset of illness. hydration, rest, meds as directed. LS imrpoved after neb- duoneb and 1 albuterol. [id number] Mo Lilly MD Main Office [address] [address] [place] [address] 12/28/2017 10:21:26 12/28/2017 11:30:53 Adult health examination 641022839 Z00.00 Essential hypertension 68858952 I10 Good home readings. Will continue to monitor without meds Screening for malignant neoplasm of lung 719727596 Z12.2 Tobacco de pendence syndrome 60470384 F17.290 Chronic ob structive pulmonary disease 37843994 J44.9 Hyperlipidemia 86330004 E78.5 [id number] Mo Lilly MD Main Office [address] [address] [place] [address] 07/20/2018 08:06:32 07/20/2018 09:16:58 Chronic obstructive pulmonary disease 65394467 J44.9 Essential hypertension 69549228 I10 Good home readings. Will continue to monitor without meds Needs infl uenza immunization 330431948 Z23 Cramp in l ower leg associated with rest 332574585 G47.62 Tobacco de pendence syndrome 76469536 F17.290 Hyperlipidemia 31817091 E78.5 Fatigue 53276200 R53.83 Tick bite 46955791 S80.8 62A [id number] Mo Lilly MD Main Office [address] [facility] [address] [place] [address] 03/03/2019 08:31:15 03/03/2019 09:43:17 Adult health examination 214246854 Z00.00 Essential hypertension 00777267 I10 Tobacco de pendence syndrome 17992973 F17.290 Chronic ob structive pulmonary disease 87849772 J44.9 Hyperlipidemia 09563807 E78.5 Screening for malignant neoplasm of lung 632248357 Z87.891 Eligible patients must have >=30 pack years Macrocytos is - no anemia 513448515 D75.89 [id number] Geovani Benson PA-C Main Office [address] [address] [place] [address] 05/05/2019 08:32:52 05/05/2019 09:31:01 Essential hypertension 55991587 I10 bp stable at home, borderline elevated here - trending down here c multiple readings, likely component of white coat htn. cont med as dir, cont to monitor at home - call us if trending up = o/w, rec bring bp monitor to next ov to compare readings [id number] Geovani Benson PA-C Main Office [address] [address] [place] [address] 09/08/2019 08:35:31 09/08/2019 09:29:52 Chronic obstructive pulmonary disease 32632268 J44.9 pt states is using proair 3-4x/day in addition to symbicort and spiriva max doses - he is doing so to relieve chest congestion /coughing fit more so than sob -- advised pt to take an expectoran t like mucinex 1-2x/day in order to decrease reliances on alb (ie, use it prn) Essential hypertension 87723711 I10 bp stable, cont med as dir Needs infl uenza immunization 104790821 Z23 Tobacco de pendence syndrome 90196736 F17.290 [id number] Mo Lilly MD Main Office [address] [address] [place] [address] 07/26/2020 08:02:07 07/26/2020 09:12:54 Adult health examination 043266560 Z00.00 Essential hypertension 35755131 I10 Needs infl uenza immunization 748064544 Z23 Chronic ob structive pulmonary disease 23732610 J44.9 Hyperlipidemia 87612111 E78.5 Tobacco de pendence syndrome 62439300 F17.290 Cramp in l ower leg associated with rest 248343324 G47.62 Trial of compressio n stockings and drink tonic water after dinner. Fatigue 73699162 R53.83 Health Concerns Section Related Observation LastModified by Organization Detai ls LastModified Time None Recorded Concern Status LastModified by Organization Details LastModified Time None Recorded Advance Directives Directive Y: Payers Encounter Date Sequence Insurance Name Policy Number Policy Fermin Covered Member ID Fermin Member ID Guarantor Name 07/20/2018 1 [place] [facility] (O) [id number] Mo Aurelio Yan [id number] Mo Heredia 03/03/2019 1 [place] [employer] ([place]) [id number] Mo Aurelio Yan [id number] Mo Aurelio Yan 05/05/2019 1 [place] [employer] ([place]) [id number] Mo Aurelio Yan [id number] Mo Heredia 09/08/2019 1 [place] [employer] ([facility] [id number] Mo Aurelio Yan [id number] Mo Aurelio Yan 07/26/2020 1 [place] [employer] ([facility]) [id number] Mo Heredia [id number] Mo Heredia Notes Date Note Type Note Provider Name [...] to use of gabapentin. Mo Lilly MD [address] [address], [place], [address], [facility] 07/20/2018 09:18:49 9 text/html Here for PE visit. Notes pain in neck and upper back, though improved. Still smoking cigarettes approx 1 PPD Mo Lilly MD [address] [address], [place], [address], [facility] 03/03/2019 09:32:00 9 text/html COPDReported bypatient.Onset/Timing:chr onic; [...] over 130 consistently Mo Lilly MD [address] [address], [place], [address], [facility] 03/03/2019 09:32:00 9 text/html Hypertension F/UReported bypatient.Associated Symptoms:no dizziness; no lightheadedness; no chest pain; no shortness of breath; no palpitations; no edema; no calf pain with exertion Lifestyle:regular exercise; limiting/avoiding salt Medications:taking medications as directed; no side effects from medication; checks blood pressure at home, range: (120-130s/70s) Geovani Benson PA-C [address] [address], [place], [address], [facility] 05/05/2019 09:27:58 9 text/html COPDReported bypatient.Onset/Timing:chr onic: [...] home, range: (120-130s/70-80s) Geovani Benson PA-C [address], [address], [facility] 09/08/2019 09:38:48 0 text/html COPDReported bypatient.Onset/Timing:chr onic; [...] relaxer at night. Mo Lilly MD [address] [address], [place], [address], [facility] 07/26/2020 09:11:21
== END 2024-10-20 11:02 | disposition home or self-care (01) ==
PROVIDERS: PCP Nurse Practitioner Family; Visit Provider Nurse Practitioner Family
DX: J44.9 Chronic obstructive pulmonary disease, unspecified (principal); F17.210 Nicotine dependence, cigarettes, uncomplicated; J47.9 Bronchiectasis, uncomplicated; R91.8 Other nonspecific abnormal finding of lung field
CPT/HCPCS: 99214

== ENCOUNTER → 2024-10-20 10:26 | Outpatient (BNVA) | payer MEDICARE, SELFPAY | PROVIDERS: PCP Nurse Practitioner Family; Visit Provider Nurse Practitioner Family | DX: J47.9 Bronchiectasis, uncomplicated (principal); R91.8 Other nonspecific abnormal finding of lung field; F17.210 Nicotine dependence, cigarettes, uncomplicated; Z79.899 Other long term (current) drug therapy | CPT/HCPCS: 99212 ==

== ENCOUNTER 2024-10-23 10:54 | Outpatient (REF) | payer MEDICARE, SELFPAY ==
--- NOTE | 2024-10-23 10:57 | PFT_ITS ---
Flows: FEV1: 37 % of predicted at 1.16 L FVC: 87 % of predicted at 3.63 L FEV1/FVC: 32 % Bronchodilator response: Absent Volumes: Total lung capacity: 91 % of predicted at 6.32 L Residual volume: 120 % of predicted at 2.89 L Slow vital capacity: 76 % of predicted at 3.44 L Expiratory reserve volume: 91 % of predicted at 1.09 L Diffusion capacity: Mildly decreased Impression: Severe to very severe obstructive ventilatory defect with no bronchodilator response. Increased residual volume suggests air trapping. Decreased diffusion capacity suggests emphysema. MTDD
--- OUTSIDE RECORDS SUMMARY | 2024-10-23 14:42 | XMS_ITS | Data Portability ---
Author Organization [facility], Main Office Address [address] [facility] [place] [address] Care Team Providers Care Bonbon Dipper Name Role Phone MO LILLY Primary Care Provider CHAVO HERNANDEZ Construction Materials Tester ANITHA DYE Political Science Chair GUILLERMO GARCIA Custom Feed Mill Operator SHARATH YAN Vascular Surgeon Assessment Encounter Date [...] panel, serum 2017 018 [facility], [address] [facility], [facility], [place], [address], 8 16:59:49 TSH, serum or plasma 2017 018 [facility], [address], [address], [place], [address], 8 17:09:21 CBC w/ auto diff 2017 018 [facility], [address], [address], [place], [address], 8 14:08:57 BMP, serum or plasma 2017 018 [facility], [address], [address], [place], [address], 8 16:59:48 borrel ia burgdo rferi C6 Ab, QL, serum 2017 018 [facility], [address], [address], [place], [address], 8 09:39:32 BMP, serum or plasma 2018 019 [facility], [address], [address], [place], [address], 9 15:17:13 magnes ium, serum or plasma 2018 019 [facility], [address], [address], [place], [address], 9 15:17:18 lipid panel, serum 2018 019 [facility], [address], [address], [place], [address], 9 15:17:17 folate , serum 2018 019 [facility], [address], [address], [place], [address], 9 15:41:59 gamma- glutam yl transf erase (ggt), serum 2018 019 [facility], [address], [address], [place], [address], 9 15:17:15 mma (methy lmalon ic acid), serum 2018 019 [facility], [address], [address], [place], [address], 9 10:12:12 vitami n B12, serum 2018 019 [facility], [address], [address], [place], [address], 9 15:41:58 CBC w/ auto diff 2018 019 [facility], [address], [address], [place], [address], 9 14:07:07 BMP, serum or plasma 2019 020 [facility], [address], [address], [place], [address], 0 20:58:25 lipid panel, serum 2019 020 [facility], [address], [address], [place], [address], 0 20:58:26 CBC w/ auto diff 2019 020 [facility], [address], [address], [place], [address], 0 16:21:30 TSH, serum or plasma 2019 020 [facility], [address], [address], [place], [address], 0 21:00:37 Referral None record ed. Procedures [...] the last 12 months . 2018 019 [facility], [address] [place], [address], 9 13:25:37 Medication Orders Symbic ort 160 mcg-4. 5 mcg/ac tuatio n HFA aeroso l inhale r 2017 018 [facility][id number], [address] [place] [address], [id number], 8 09:11:48 Spiriv a with HandiH aler 18 mcg and inhala tion capsul es 2017 018 [facility] #[id number], [address] [place] [address], [id number], 8 09:11:49 magnes ium oxide 400 mg (241.3 mg magnes ium) tablet 2017 018 [id number], [address] [place] [address], [id number], 9 08:44:59 cyclob enzapr ine 10 mg tablet 2017 018 [facility], [address] [place] [address], [phone], 9 08:44:55 amlodi pine 5 mg tablet 2018 019 [facility][id number], [address] [place] [address], [id number], 9 09:20:25 Symbic ort 160 mcg-4. 5 mcg/ac tuatio n HFA aeroso l inhale r 2019 020 [facility], [address] [place] [address], [address], 0 09:01:28 Patient Targets Encounter Date Encounter Id Patient Goals Patient Target Last Modified By Organization Details Last Modified Time 05/05/2019 [id number] assisted goal of Blood Pressure 140 / 90 Not available Not available Not available assisted goal of Exercise level Not available Not available Not available assisted goal of Tobacco Smoking Status Not available [...] By Organization Details Last Modified Time 07/20/2018 [id number] deciding about using medicines to quit smoking pheuth Not available 07/20/2018 09:11:42 Quitting Tobacco : Care Instructions [facility] Not available 07/20/2018 09:11:42 chronic obstructive pulmonary disease (COPD): care instructions [facility] Not available 07/20/2018 09:11:42 learning about copd and how to prevent lung infections phelmuth Not available 07/20/2018 09:11:42 high blood pressure: care instructions [facility] Not available 07/20/2018 09:11:42 learning about high blood pressure phelmuth Not available 07/20/2018 09:11:42 tick bite: care instructions [facility] Not available 07/20/2018 09:14:27 03/03/2019 [id number] deciding about using medicines to quit smoking phelmuth Not available 03/03/2019 09:48:36 Quitting Tobacco : [facility] 03/03/2019 09:48:36 high blood pressure: care instructions phelmuth Not available 03/03/2019 09:48:36 learning about high blood pressure pheuth Not available 03/03/2019 09:48:36 Lung Cancer Screening pheuth Not available 03/03/2019 09:09:52 lung cancer screening eligibility assessment* [facility]arter Not available 04/16/2019 13:21:51 high cholesterol : [facility] Not available 03/03/2019 09:05:54 chronic obstructive pulmonary disease (COPD): [facility] Not available 03/03/2019 09:05:54 learning about copd and how to prevent lung infections pheuth Not available 03/03/2019 09:05:54 spirometry testing* [facility] Not available 03/03/2019 09:56:04 05/05/2019 [id number] Medications (OTC , herbal therapies, supplements) reviewed and reconciled with patient and or caregiver, including potential side effects, drug interactions, instructions, and the consequences of not taking medication. Reviewed potential barriers to medication adherence, such as side effects from medication or cost of medication. Patient will follow up and keep appointment as scheduled. pmadden Not available 05/05/2019 09:23:59 09/08/2019 [id number] Quitting Tobacco : Care Instructions pmadden Not [...] with greater than 50% of the visit [id number] with the patient and/or family providing counseling and/or coordination of care. pmadden Not available 09/08/2019 09:36:43 07/26/2020 [id number] deciding about using medicines to quit smoking pheuth Not available 07/26/2020 09:01:28 Quitting Tobacco : [facility] Not [facility] 07/26/2020 09:01:27 high blood pressure: [facility] Not [facility] 07/26/2020 08:42:05 learning about high blood pressure pheuth Not available 07/26/2020 08:42:05 nurse assessment * - Please call to get home BP readings in a few weeks. Was elevated in the office. If still elevated, should change to amlodipine+beneza pril 5/10mg. thanks! [facility] Not available 08/27/2020 16:27:55 high cholesterol : [facility] Not available 07/26/2020 09:01:27 chronic obstructive pulmonary disease (COPD): [facility] Not available 07/26/2020 09:01:27 learning about copd and how to prevent lung infections pheuth Not available 07/26/2020 09:01:27 Reason for Referral None Reported. Results Created Date Observation Date Name Description Value Unit Range Abnormal Flag Note LastModifiedBy Organization Detail LastModifiedTime 07/22/20 18 07/22/2018 CBC w/ auto diff WBC 8.3 K/mm3 (4.0-1 1.0) Not Available [facility] [address] [place], [address], 07/22/2018 14:08:57 07/22/20 18 07/22/2018 CBC w/ auto diff RBC 5.04 M/mm3 (4.70- 6.10) Not Available [facility] [address] [place], [address], 07/22/2018 14:08:57 07/22/20 18 07/22/2018 CBC w/ auto diff HGB 15.7 gm/dL (13.7- 16.5) Not Available [facility] [address] [place], [address], 07/22/2018 14:08:57 07/22/20 18 07/22/2018 CBC w/ auto diff HCT 48.0 % (40.5- 48.5) Not Available [facility] [address] [place], [address], 07/22/2018 14:08:57 07/22/20 18 07/22/2018 CBC w/ auto diff MCV 95.2 fL (80.0- 94.0) high Not Available [facility] [address] [place], [address], 07/22/2018 14:08:57 07/22/20 18 07/22/2018 CBC w/ auto diff MCH 31.2 pg (27.0- 34.0) Not Available [facility] [address] [place], [address], 07/22/2018 14:08:57 07/22/20 18 07/22/2018 CBC w/ auto diff MCHC 32.7 g/dL (33.0- 37.0) low Not Available [facility] [address] [place], [address], 07/22/2018 14:08:57 07/22/20 18 07/22/2018 CBC w/ auto diff plt 405 K/mm3 (150-4 60) Not Available [facility] [address] [place], [address], 07/22/2018 14:08:57 07/22/20 18 07/22/2018 CBC w/ auto diff RDW-SD 48.7 fL (<47.0 ) high Not Available [facility] [address] [place], [address], 07/22/2018 14:08:57 07/22/20 18 07/22/2018 CBC w/ auto diff MPV 9.8 fL (9.4-1 2.4) Not Available [facility] [address] [place], [address], 07/22/2018 14:08:57 07/22/20 18 07/22/2018 CBC w/ auto diff automated NRBC 0.0 #/100 _WBC' s Not Available [facility] [address] [place], [address], 07/22/2018 14:08:57 07/22/20 18 07/22/2018 CBC w/ auto diff abs. NRBC 0.0 K/mm3 Not Available [facility] [address] [place], [address], 07/22/2018 14:08:57 07/22/20 18 07/22/2018 CBC w/ auto diff neut # 4.7 K/mm3 (1.3-7 .0) Not Available [facility] [address] [place], [address], 07/22/2018 14:08:57 07/22/20 18 07/22/2018 CBC w/ auto diff lymph # 2.3 K/mm3 (0.8-3 .1) Not Available [facility] [address] [place], [address], 07/22/2018 14:08:57 07/22/20 18 07/22/2018 CBC w/ auto diff mono# 0.9 K/mm3 (0.4-1 .3) Not Available [facility] [address] [place], [address], 07/22/2018 14:08:57 07/22/20 18 07/22/2018 CBC w/ auto diff eo # 0.2 K/mm3 (0.0-0 .4) Not Available [facility] [address] [place], [address], 07/22/2018 14:08:57 07/22/20 18 07/22/2018 CBC w/ auto diff baso # 0.2 K/mm3 (0.0-0 .1) high Not Available [facility] [address] [place], [address], 07/22/2018 14:08:57 07/22/20 18 07/22/2018 CBC w/ auto diff abs. imm gran 0.1 K/mm3 Not Available [facility] [address] [place], [address], 07/22/2018 14:08:57 07/22/20 18 07/22/2018 CBC w/ auto diff neut 56.2 % (44-76 ) Not Available [facility] [address] [place], [address], 07/22/2018 14:08:57 07/22/20 18 07/22/2018 CBC w/ auto diff lymph 28.1 % (15-43 ) Not Available [facility] [address] [place], [address], 07/22/2018 14:08:57 07/22/20 18 07/22/2018 CBC w/ auto diff monocyte 10.7 % (4.5-1 0.5) high Not Available [facility] [address] [place], [address], 07/22/2018 14:08:57 07/22/20 18 07/22/2018 CBC w/ auto diff eo 2.0 % (0-6) Not Available [facility] [address] [place], [address], 07/22/2018 14:08:57 07/22/20 18 07/22/2018 CBC w/ auto diff baso 2.4 % (0-2) high Not Available [facility] [address] [place], [address], 07/22/2018 14:08:57 07/22/20 18 07/22/2018 CBC w/ auto diff imm gran 0.6 % (0.0-0 .6) Not Available [facility] [address] [place], [address], 07/22/2018 14:08:57 07/22/20 18 07/22/2018 BMP, serum or plasm a glucose 90 mg/dL (70-99 ) Not Available [facility] [address] [place], [address], 07/22/2018 16:59:48 07/22/20 18 07/22/2018 BMP, serum or plasm a BUN 8 mg/dL (8-23) Not Available [facility] [address] [place], [address], 07/22/2018 16:59:48 07/22/20 18 07/22/2018 BMP, serum or plasm a creatinine 0.7 mg/dL (0.7-1 .2) Not Available [facility] [address] [place], [address], 07/22/2018 16:59:48 07/22/20 18 07/22/2018 BMP, serum or plasm a sodium 139 mmol/ L (133-1 45) Not Available [facility] [address] [place], [address], 07/22/2018 16:59:48 07/22/20 18 07/22/2018 BMP, serum or plasm a potassium 4.6 mmol/ L (3.6-5 .2) Not Available [facility] [address], [address], 07/22/2018 16:59:48 07/22/20 18 07/22/2018 BMP, serum or plasm a chloride 98 mmol/ L (98-10 7) Not Available [facility] [address] [place], [address], 07/22/2018 16:59:48 07/22/20 18 07/22/2018 BMP, serum or plasm a bicarbonate 27 mmol/ L (22-29 ) Not Available [facility] [address] [place], [address], 07/22/2018 16:59:48 07/22/20 18 07/22/2018 BMP, serum or plasm a anion gap 14 (4-17) Not Available [facility] [address], [address], 07/22/2018 16:59:48 07/22/20 18 07/22/2018 BMP, serum or plasm a calcium 9.5 mg/dL (8.6-1 0.5) Not Available [facility] [address] [place], [address], 07/22/2018 16:59:48 07/22/20 18 07/22/2018 BMP, serum [...] Available [facility] [address] [place], [address], 07/22/2018 16:59:48 07/22/20 18 07/22/2018 BMP, serum [...] Available [facility] [address] [place], [address], 07/22/2018 16:59:48 07/22/20 18 07/22/2018 lipid panel , serum cholesterol, total 173 mg/dL (<200) Not Available [facility] [address] [place], [address], 07/22/2018 16:59:49 07/22/20 18 07/22/2018 lipid panel , serum triglyceride 71 mg/dL (<150) Not Available [facility] [address] [place], [address], 07/22/2018 16:59:49 07/22/20 18 07/22/2018 lipid panel , serum HDL chol 101 mg/dL (>39) Not Available [facility] [address] [place], [address], 07/22/2018 16:59:49 07/22/20 18 07/22/2018 lipid panel , serum LDL cholesterol, calculated 58 mg/dL (0-130 ) Not Available [facility] [address] [place], [address], 07/22/2018 16:59:49 07/22/20 18 07/22/2018 lipid panel , serum non HDL cholesterol (calc) 72 mg/dL (<160) Not Available [facility] [address] [place], [address], 07/22/2018 16:59:49 07/22/20 18 07/22/2018 TSH, serum or plasm a TSH 1.10 mIU/m L (0.40- 4.00) Not Available [facility] [address] [place], [address], 07/22/2018 17:09:21 07/22/20 18 07/24/2018 borre bela [...] Available [facility] [address] [place], [address], 07/24/2018 09:39:32 03/03/20 19 03/03/2019 CBC w/ auto diff WBC 9.2 K/mm3 (4.0-1 1.0) Not Available [facility] [address], [address], 03/03/2019 14:07:06 03/03/20 19 03/03/2019 CBC w/ auto diff RBC 5.12 M/mm3 (4.70- 6.10) Not Available [facility] [address] [place], [address], 03/03/2019 14:07:06 03/03/20 19 03/03/2019 CBC w/ auto diff HGB 16.0 gm/dL (13.7- 17.1) Not Available [facility] [address] [place], [address], 03/03/2019 14:07:06 03/03/20 19 03/03/2019 CBC w/ auto diff HCT 48.5 % (40.5- 50.0) Not Available [facility] [address] [place], [address], 03/03/2019 14:07:06 03/03/20 19 03/03/2019 CBC w/ auto diff MCV 94.7 fL (80.0- 94.0) high Not Available [facility] [address] [place], [address], 03/03/2019 14:07:06 03/03/20 19 03/03/2019 CBC w/ auto diff MCH 31.3 pg (27.0- 34.0) Not Available [facility] [address] [place], [address], 03/03/2019 14:07:06 03/03/20 19 03/03/2019 CBC w/ auto diff MCHC 33.0 g/dL (33.0- 37.0) Not Available [facility] [address] [place], [address], 03/03/2019 14:07:06 03/03/20 19 03/03/2019 CBC w/ auto diff plt 345 K/mm3 (150-4 60) Not Available [facility] [address], [address], 03/03/2019 14:07:06 03/03/20 19 03/03/2019 CBC w/ auto diff RDW-SD 46.5 fL (<47.0 ) Not Available [facility] [address] [place], [address], 03/03/2019 14:07:06 03/03/20 19 03/03/2019 CBC w/ auto diff MPV 10.2 fL (9.4-1 2.4) Not Available [facility] [address] [place], [address], 03/03/2019 14:07:06 03/03/20 19 03/03/2019 CBC w/ auto diff automated NRBC 0.0 #/100 _WBC' s Not Available [facility] [address] [place], [address], 03/03/2019 14:07:06 03/03/20 19 03/03/2019 CBC w/ auto diff abs. NRBC 0.0 K/mm3 Not Available [facility] [address] [place], [address], 03/03/2019 14:07:06 03/03/20 19 03/03/2019 BMP, serum or plasm a glucose 91 mg/dL (70-99 ) Not Available [facility] [address] [place], [address], 03/03/2019 15:17:13 03/03/2003/03/2019 BMP, serum or plasm a BUN 10 mg/dL (8-23) Not Available [facility] [address] [place], [address], 03/03/2019 15:17:13 03/03/2003/03/2019 BMP, serum or plasm a creatinine 0.7 mg/dL (0.7-1 .2) Not Available [facility] [address], [address], 03/03/2019 15:17:13 03/03/20 19 03/03/2019 BMP, serum or plasm a sodium 137 mmol/ L (133-1 45) Not Available [facility] [address], [address], 03/03/2019 15:17:13 03/03/20 19 03/03/2019 BMP, serum or plasm a potassium 4.9 mmol/ L (3.6-5 .2) Not Available [facility] [address] [place], [address], 03/03/2019 15:17:13 03/03/20 19 03/03/2019 BMP, serum or plasm a chloride 98 mmol/ L (98-10 7) Not Available [facility] [address] [place], [address], 03/03/2019 15:17:13 03/03/20 19 03/03/2019 BMP, serum or plasm a bicarbonate 28 mmol/ L (22-29 ) Not Available [facility] [address] [place], [address], 03/03/2019 15:17:13 03/03/20 19 03/03/2019 BMP, serum or plasm a anion gap 11 (4-17) Not Available [facility] [address] [place], [address], 03/03/2019 15:17:13 03/03/20 19 03/03/2019 BMP, serum or plasm a calcium 9.8 mg/dL (8.6-1 0.5) Not Available [facility] [address] [place], [address], 03/03/2019 15:17:13 03/03/20 19 03/03/2019 BMP, serum [...] Available [facility] [address] [place], [address], 03/03/2019 15:17:13 03/03/20 19 03/03/2019 BMP, serum [...] Available [facility] [address] [place], [address], 03/03/2019 15:17:13 03/03/20 19 03/03/2019 gamma -glut amyl trans feras e (ggt) , serum ggtp 35 U/L (8-61) Not Available [facility] [address] [place], [address], 03/03/2019 15:17:15 03/03/2003/03/2019 lipid panel , serum cholesterol, total 188 mg/dL (<200) Not Available [facility] [address] [place], [address], 03/03/2019 15:17:17 03/03/2003/03/2019 lipid panel , serum triglyceride 50 mg/dL (<150) Not Available [facility] [address] [place], [address], 03/03/2019 15:17:17 03/03/2003/03/2019 lipid panel , serum HDL chol 121 mg/dL (>39) Not Available [facility] [address] [place], [address], 03/03/2019 15:17:17 03/03/2003/03/2019 lipid panel , serum LDL cholesterol, calculated 57 mg/dL (0-130 ) Not Available [facility] [address] [place], [address], 03/03/2019 15:17:17 03/03/2003/03/2019 lipid panel , serum non HDL cholesterol (calc) 67 mg/dL (<160) Not Available [facility] [address] [place], [address], 03/03/2019 15:17:17 03/03/2003/03/2019 magne sium, serum or [...] [facility] [address], [place], [address], 03/03/2019 15:17:18 03/03/2003/03/2019 vitam in B12, serum vitamin B12 514 pg/mL (232-1 245) Not Available [facility] [address], [place], [address], 03/03/2019 15:41:58 03/03/2003/03/2019 folat e, serum folic acid 19.0 NG/mL (>3.9) Not Available [facility] [address], [place], [address], 03/03/2019 15:41:59 03/03/2003/07/2019 mma (meth ylmal onic acid) , serum methylmaloni c acid, serum 0.25 Refer ence range : < EQ 0.40 Unit: nmol/ mL (NOTE ) = ----- ----- ----- ----A DDITI ONAL INFOR MATIO N---- ----- ----- ----- This test was sascha oped and its perfo rmanc e taisha cteri stics deter mined by [facility] in a sally r consi stent with KEVIN mason. This test has not been clear ed or appro marcy by the U.S. Food and Drug Admin istra tion. Test Perfo rmed by: [facility], [address], [place] [address] Labor atory Direc tor: Joshua yarbrough III, M.D. Not Available [facility] [address] [place], [address], 03/07/2019 10:12:12 03/03/2003/03/2019 lefty metry testi ng* Spirometry abnorm al abnormal Not Available In-Office Order Internal Use Only DO Not Attach Compendium DO Not Attach Compendium, Do Not Delete/merge, [id number] 03/03/2019 09:00:06 07/26/2007/26/2020 CBC w/ auto diff WBC 8.5 K/mm3 (4.0-1 1.0) Not Available [facility] [address] [place], [address], 07/26/2020 16:21:30 07/26/2007/26/2020 CBC w/ auto diff RBC 5.06 M/mm3 (4.70- 6.10) Not Available [facility] [address] [place], [address], 07/26/2020 16:21:30 07/26/2007/26/2020 CBC w/ auto diff HGB 15.2 gm/dL (13.7- 17.1) Not Available [facility] [address] [place], [address], 07/26/2020 16:21:30 07/26/2007/26/2020 CBC w/ auto diff HCT 48.4 % (40.5- 50.0) Not Available [facility] [address] [place], [address], 07/26/2020 16:21:30 07/26/20 20 07/26/2020 CBC w/ auto diff MCV 95.7 fL (80.0- 94.0) high Not Available [facility] [address] [place], [address], 07/26/2020 16:21:30 07/26/20 20 07/26/2020 CBC w/ auto diff MCH 30.0 pg (27.0- 34.0) Not Available [facility] [address] [place], [address], 07/26/2020 16:21:30 07/26/20 20 07/26/2020 CBC w/ auto diff MCHC 31.4 g/dL (33.0- 37.0) low Not Available [facility] [address] [place], [address], 07/26/2020 16:21:30 07/26/20 20 07/26/2020 CBC w/ auto diff plt 369 K/mm3 (150-4 60) Not Available [facility] [address] [place], [address], 07/26/2020 16:21:30 07/26/20 20 07/26/2020 CBC w/ auto diff RDW-SD 47.3 fL (<47.0 ) high Not Available [facility] [address] [place], [address], 07/26/2020 16:21:30 07/26/20 20 07/26/2020 CBC w/ auto diff MPV 10.3 fL (9.4-1 2.4) Not Available [facility] [address], [address], 07/26/2020 16:21:30 07/26/20 20 07/26/2020 CBC w/ auto diff automated NRBC 0.0 #/100 _WBC' s Not Available [facility] [address], [address], 07/26/2020 16:21:30 07/26/20 20 07/26/2020 CBC w/ auto diff abs. NRBC 0.0 K/mm3 Not Available [facility] [address] [place], [address], 07/26/2020 16:21:30 07/26/20 20 07/26/2020 CBC w/ auto diff neut # 5.1 K/mm3 (1.3-7 .0) Not Available [facility] [address] [place], [address], 07/26/2020 16:21:30 07/26/20 20 07/26/2020 CBC w/ auto diff lymph # 2.2 K/mm3 (0.8-3 .1) Not Available [facility] [address] [place], [address], 07/26/2020 16:21:30 07/26/20 20 07/26/2020 CBC w/ auto diff mono# 0.9 K/mm3 (0.4-1 .3) Not Available [facility] [address] [place], [address], 07/26/2020 16:21:30 07/26/20 20 07/26/2020 CBC w/ auto diff eo # 0.1 K/mm3 (0.0-0 .4) Not Available [facility] [address] [place], [address], 07/26/2020 16:21:30 07/26/20 20 07/26/2020 CBC w/ auto diff baso # 0.2 K/mm3 (0.0-0 .1) high Not Available [facility] [address] [place], [address], 07/26/2020 16:21:30 07/26/20 20 07/26/2020 CBC w/ auto diff abs. imm gran 0.1 K/mm3 Not Available [facility] [address], [address], 07/26/2020 16:21:30 07/26/20 20 07/26/2020 CBC w/ auto diff neut 59.8 % (44-76 ) Not Available [facility] [address] [place], [address], 07/26/2020 16:21:30 07/26/20 20 07/26/2020 CBC w/ auto diff lymph 25.5 % (15-43 ) Not Available [facility] [address] [place], [address], 07/26/2020 16:21:30 07/26/20 20 07/26/2020 CBC w/ auto diff monocyte 10.2 % (4.5-1 0.5) Not Available [facility] [address] [place], [address], 07/26/2020 16:21:30 07/26/20 20 07/26/2020 CBC w/ auto diff eo 1.4 % (0-6) Not Available [facility] [address] [place], [address], 07/26/2020 16:21:30 07/26/20 20 07/26/2020 CBC w/ auto diff baso 2.5 % (0-2) high Not Available [facility] [address] [place], [address], 07/26/2020 16:21:30 07/26/20 20 07/26/2020 CBC w/ auto diff imm gran 0.6 % Not Available [facility] [address] [place], [address], 07/26/2020 16:21:30 07/26/20 20 07/26/2020 BMP, serum or plasm a glucose 88 mg/dL (70-99 ) Not Available [facility] [address] [place], [address], 07/26/2020 20:58:24 07/26/20 20 07/26/2020 BMP, serum or plasm a BUN 9 mg/dL (8-23) Not Available [facility] [address] [place], [id number], 07/26/2020 20:58:24 07/26/20 20 07/26/2020 BMP, serum or plasm a creatinine 0.6 mg/dL (0.7-1 .2) low Not Available [facility] [address] [place], [id number], 07/26/2020 20:58:24 07/26/20 20 07/26/2020 BMP, serum or plasm a sodium 135 mmol/ L (133-1 45) Not Available [facility] [address] [place], [id number], 07/26/2020 20:58:24 07/26/20 20 07/26/2020 BMP, serum or plasm a potassium 4.9 mmol/ L (3.6-5 .2) Not Available [facility] [address] [place], [id number], 07/26/2020 20:58:24 07/26/20 20 07/26/2020 BMP, serum or plasm a chloride 94 mmol/ L (98-10 7) low Not Available [facility] [address] [place], [id number], 07/26/2020 20:58:24 07/26/20 20 07/26/2020 BMP, serum or plasm a bicarbonate 27 mmol/ L (22-29 ) Not Available [facility] [address] [place], [address], 07/26/2020 20:58:24 07/26/20 20 07/26/2020 BMP, serum or plasm a anion gap 14 (4-17) Not Available [facility] [address] [place], [address], 07/26/2020 20:58:24 07/26/20 20 07/26/2020 BMP, serum or plasm a calcium 9.7 mg/dL (8.6-1 0.5) Not Available [facility] [address] [place], [address], 07/26/2020 20:58:24 07/26/20 20 07/26/2020 BMP, serum or plasm a est GFR non 106 mL/mi n/1.7 3_M2 Not Available [facility] [address] [place], [address], 07/26/2020 20:58:24 07/26/20 20 07/26/2020 BMP, serum [...] [facility] [address] [place], [address], 07/26/2020 20:58:24 07/26/20 20 07/26/2020 lipid panel , serum cholesterol, total 199 mg/dL (<200) Not Available [facility] [address] [place], [address], 07/26/2020 20:58:26 07/26/20 20 07/26/2020 lipid panel , serum triglyceride 51 mg/dL (<150) Not Available [facility] [address] [place], [address], 07/26/2020 20:58:26 07/26/20 20 07/26/2020 lipid panel , serum HDL chol 142 mg/dL (>39) Not Available [facility] [address] [place], [address], 07/26/2020 20:58:26 07/26/20 20 07/26/2020 lipid panel , serum LDL cholesterol, calculated 47 mg/dL (0-130 ) Not Available [facility] [address] [place], [address], 07/26/2020 20:58:26 07/26/20 20 07/26/2020 lipid panel , serum non HDL cholesterol (calc) 57 mg/dL (<160) Not Available [facility] [address], [place], [address], 07/26/2020 20:58:26 07/26/20 20 07/26/2020 TSH, serum or plasm a TSH 1.05 uIU/m L (0.4-4 .00) Not Available [facility] [address] [place], [address], 07/26/2020 21:00:37 04/29/20 19 04/29/2019 CT chest [...] -No nodule s. LEFT lung: -3 mm machine filler servicer ior right apex nodule , image 34. [...] ural scarri ng noted in the left machine filler servicer ior upper lobe. There are subtle tree-i n-bud micron odules noted in the machine filler servicer omedia l right middle lobe and superi or aspect left lower lobe. Small foci of endobr onchia l mucous pluggi ng noted in the latera l right lower lobe inferi lyn, as well as the most medial left lower lobe and inferi or machine filler servicer ior left upper lobe. No pneumo thorax [...] There are are 3 discre te small machine filler servicer ior fat-co ntaini ng diaphr agmati c [...] sugges ting indole nt infect ion. WSN: [id number] Dictat ed By: Frandy Crawford rd, MD Dictat ed Date/T mg: 10:19 a Review ed By: Frandy Crawford rd, MD Signed By: Frandy Crawford rd, MD Signed Date/T mg: 10:19 am Transc ribed By: CSB Transc ribed Date/T mg: 10:19 am Patien t Class: Outpat ient pmadden [facility] (Outpt Imaging) [address], [place], [address], 05/05/2019 09:14:11 06/03/20 20 06/03/2020 CT chest [...] ity-Sa fety/R esour es/Saloni gRADS) . WSN: [id number] Orderi ng Physic brian: Mo Monahan Dictat ed By: Terry Jara MD Dictat ed Date/T mg: 10:09 a Review ed By: Terry Jara MD Signed By: Terry Jara MD Signed Date/T mg: 10:09 am Transc ribed By: CONSTANCE Transc ribed Date/T mg: 10:02 am Patien t Class: Outpat ient [facility] (Outpt Imaging) [address] [place] [address], [address], 06/03/2020 15:15:07 06/29/20 21 06/29/2021 CT chest [...] sed tree-i n-bud nodula rity in the machine filler servicer ior aspect of the left lower lobe [...] sed tree-i n-bud nodula rity along the machine filler servicer ior aspect of the left lower lobe. [...] I agree with this report . WSN: [id number] Orderi ng Physic brian: Mo Monahan Dictat ed By: Abdi CHRISTY, Polo Lorenzo Dictat ed Date/T mg: 10:06 a Review ed By: Neto almanzar MD, Rodrick zapata Signed By: Rodrick Duque i, MD Signed Date/T mg: 10:11 am Transc ribed By: CONSTANCE Transc ribed Date/T mg: 9:19 am Patien t Class: Outpat [facility] (Outpt Imaging) [address] [place], [address], 07/04/2021 18:01:03 Result Notes None recorded. Problems Name Problem SNOMED Code Status Onset Date Resolution Date Notes Provider Name and Address Organization Details Recorded Time Acute bronchit is 20755901 Completed 200804/30/2014 RECORDED 07/27/20 09 7:51AM BY RAMON GONZALEZ MA, GERARDO ON/ADDEN DUM [place] Matos [facility] 6 09:03:58 Chronic bronchit is 68964318 Completed 201204/30/2014 RECORDED 09/02/20 13 3:18PM BY RAMON GONZALEZ MA, GERARDO ON/ADDEN DUM [place] Matos [facility] 6 09:03:58 Joint pain 80013447 Completed 201104/30/2014 RECORDED 08/27/20 12 12:39PM BY RAMON GONZALEZ MA, ANNOTSHANTEL ON/ADDEN DUM [place] Mat[place], [facility] 6 09:03:58 Screenin g for malignan t neoplasm of colon Completed 201304/30/2014 RECORDED 12/31/19 14 7:01AM BY GERARDO DEUTSCH ON/ADDEN DUM [place] Mat[place], [facility] 6 09:03:59 Disorder of skin and/or subcutan eous tissue 37998695 Completed 201304/30/2014 RECORDED 12/31/19 14 7:01AM BY GERARDO DEUTSCH ON/ADDEN DUM [place] Mtaos, [facility] 6 09:03:58 Malaise and fatigue 651045618 Completed 201304/30/2014 RECORDED 12/31/19 14 7:01AM BY GERARDO DEUTSCH ON/ADDEN DUM [place], [facility] 6 09:03:58 Influenz a vaccine needed 45604844858 06 Completed 201104/30/2014 RECORDED 08/27/20 12 2:29PM BY RAMON GONZALEZ MA, OFFICE VISIT [place], [facility] 6 09:03:58 General examinat ion of patient Completed 200804/30/2014 RECORDED 07/27/20 09 7:51AM BY RAMON GONZALEZ MA, GERARDO ON/ADDEN DUM [place], [facility] 6 09:03:59 Renewal of prescrip tion Completed 201204/30/2014 RECORDED 09/02/20 13 3:18PM BY RAMON GONZALEZ MA, ANNOTATI ON/ADDEN DUM [place] Mat[place], [facility] 6 09:03:59 Active or passive immuniza tion Completed 200804/30/2014 RECORDED 07/27/20 09 8:44AM BY MO LILLY MD, OFFICE VISIT [place], [facility] 6 09:03:58 Sprain of carpomet acarpal joint 928605759 Completed 201104/30/2014 RECORDED 08/27/20 12 12:40PM BY RAMON GONZALEZ MA, ANNOTSHANTEL ON/ADDEN DUM [place], [facility] 6 09:03:58 Administ ration of diphther ia and tetanus vaccine Completed 201304/30/2014 RECORDED 12/31/19 14 7:01AM BY GERARDO DEUTSCH ON/ADDEN DUM [place], [facility] 6 09:03:58 Acute bronchit is 85988596 Completed 200805/01/2014 RECORDED 07/27/20 09 7:51AM BY RAMON GONZALEZ MA, ANNOTSHANTEL ON/ADDEN DUM [place] Matos, [facility] 6 09:03:58 Chronic bronchit is 23916268 Completed 201205/01/2014 RECORDED 09/02/20 13 3:18PM BY RAMON GONZALEZ MA, ANNOTATI ON/ADDEN DUM [place] Mat[place], [facility] 6 09:03:58 Joint pain 26775578 Completed 201105/01/2014 RECORDED 08/27/20 12 12:39PM BY RAMON GONZALEZ MA, ANNOTSHANTEL ON/ADDEN DUM [place], [facility] 6 09:03:58 Screenin g for malignan t neoplasm of colon Completed 201305/01/2014 RECORDED 12/31/19 14 7:01AM BY GERARDO DEUTSCH ON/ADDEN DUM [place], [facility] 6 09:03:59 Disorder of skin and/or subcutan eous tissue 58908711 Completed 201305/01/2014 RECORDED 12/31/19 14 7:01AM BY GERARDO DEUTSCH ON/ADDEN DUM [place] Mat[place], [facility] 6 09:03:58 Malaise and fatigue 469320328 Completed 201305/01/2014 RECORDED 12/31/19 14 7:01AM BY GERARDO DEUTSCH ON/ADDEN DUM [place] Mat[place], [facility] 6 09:03:58 Influenz a vaccine needed 39355002850 06 Completed 201105/01/2014 RECORDED 08/27/20 12 2:29PM BY RAMON GONZALEZ MA, OFFICE VISIT [place], [facility] 6 09:03:58 General examinat ion of patient Completed 200805/01/2014 RECORDED 07/27/20 09 7:51AM BY RAMON GONZALEZ MA, GERARDO ON/ADDEN DUM [place] Matos, [facility] 6 09:03:59 Renewal of prescrip tion Completed 201205/01/2014 RECORDED 09/02/20 13 3:18PM BY RAMON GONZALEZ MA, ANNOTSHANTEL ON/ADDEN DUM [place] Matos, [facility] 6 09:03:59 Active or passive immuniza tion Completed 200805/01/2014 RECORDED 07/27/20 09 8:44AM BY MO LILLY MD, OFFICE VISIT [place] Matos [facility] 6 09:03:58 Sprain of carpomet acarpal joint 632528583 Completed 201105/01/2014 RECORDED 08/27/20 12 12:40PM BY RAMON GONZALEZ MA, ANNOTATI ON/ADDEN DUM [place] Matos [facility] 6 09:03:58 Administ ration of diphther ia and tetanus vaccine Completed 201305/01/2014 RECORDED 12/31/19 14 7:01AM BY HÉCTOR ADAM I, ANNOTATI ON/ADDEN DUM [place] Matos [facility] 6 09:03:58 Basal cell carcinom a of skin 882087030 Active Not [facility] 2 18:38:15 Neck pain 87942099 Completed 10/19/2016 [place] Matos [facility] 7 08:47:51 Fatigue 02673988 Completed 03/01/2016 [place] Matos [facility] 6 09:03:59 Bronchit is 52047418 Completed 10/19/2016 [place] Matos [facility] 7 08:47:43 Acute bronchit is 60475411 Completed 200804/07/2014 RECORDED 07/27/20 09 7:51AM BY RAMON GONZALEZ MA, ANNOTATI ON/ADDEN DUM [place] Matos [facility] 6 09:03:58 Chronic bronchit is 73299903 Completed 201204/07/2014 RECORDED 09/02/20 13 3:18PM BY RAMON GONZALEZ MA, ANNOTATI ON/ADDEN DUM [place] Mat[place], [facility] 6 09:03:58 Adult health examinat ion Completed 201303/01/2016 [place] Mat[place], [facility] 6 09:03:59 Joint pain 05320148 Completed 201104/07/2014 RECORDED 08/27/20 12 12:39PM BY RAMON GONZALEZ MA, ANNOTATI ON/ADDEN DUM [place] Matos, [facility] 6 09:03:58 Screenin g for malignan t neoplasm of colon Completed 201304/07/2014 RECORDED 12/31/19 14 7:01AM BY GERARDO DEUTSCH ON/ADDEN DUM [place] Mat[place], [facility] 6 09:03:59 Chronic obstruct divina pulmonar y disease 22937284 Active 2013 Not Available [facility] 2 18:38:15 Elevated blood-pr essure reading without diagnosi s of hyperten judy 475641631 Completed 201310/13/2014 RECORDED 12/31/19 14 7:01AM BY HÉCTOR ADAM I, OFFICE VISIT [place] Mat[place], [facility] 6 09:03:58 Disorder of skin and/or subcutan eous tissue 48902289 Completed 201304/07/2014 RECORDED 12/31/19 14 7:01AM BY HÉCTOR ADAM I, JOSEATI ON/ADDEN DUM [place] Matos, [facility] 6 09:03:58 Malaise and fatigue 166826962 Completed 201304/07/2014 RECORDED 12/31/19 14 7:01AM BY HÉCTOR ADAM I, ANNOTATI ON/ADDEN DUM [place] Mat[place], [facility] 6 09:03:58 Influenz a vaccine needed 71558453018 06 Completed 201104/07/2014 RECORDED 08/27/20 12 2:29PM BY RAMON GONZALEZ MA, OFFICE VISIT [place], [facility] 6 09:03:58 General examinat ion of patient Completed 200804/07/2014 RECORDED 07/27/20 09 7:51AM BY RAMON GONZALEZ MA, ANNOTATI ON/ADDEN DUM [place] Mat[place], [facility] 6 09:03:59 Inguinal hernia 084137246 Active 2013 Not Available [facility] 2 18:38:15 Hyperlip idemia 64651145 Active 2013 Not Available [facility] 2 18:38:15 [facility] hyperten judy 78531112 Active 2013 Not Available [facility] 2 18:38:15 Renewal of prescrip tion Completed 201204/07/2014 RECORDED 09/02/20 13 3:18PM BY RAMON GONZALEZ MA, ANNOTATI ON/ADDEN DUM [place] Mat[place], [facility] 6 09:03:58 Active or passive immuniza tion Completed 200804/07/2014 RECORDED 07/27/20 09 8:44AM BY MO LILLY MD, OFFICE VISIT [place], [facility] 6 09:03:58 Sprain of carpomet acarpal joint 759713778 Completed 201104/07/2014 RECORDED 08/27/20 12 12:40PM BY RAMON I CHARLIE GONZALEZ MA, ANNOTATI ON/ADDEN DUM [place] Matos [facility] 6 09:03:58 Administ ration of diphther ia and tetanus vaccine Completed 201304/07/2014 RECORDED 12/31/19 14 7:01AM BY GERARDO DEUTSCH ON/ADDEN DUM [place] Matos [facility] 6 09:03:58 Tobacco dependen ce syndrome 99862101 Active 2013 Not Available [facility] 2 18:38:15 Problem Notes None recorded. Procedures Surgical History Date Name Laterality Status Provider Name and Address Organization Details Recorded Time 09/24/19 20 excision of basal cell carcinoma completed Ramon duarte MA [facility] 07/26/2020 08:36:48 03/17/20 16 Colonoscopy completed Ramon duarte MA [facility] 10/19/2016 08:51:51 03/17/20 16 Colonoscopy & polypectomy completed Ramon duarte MA [facility] 05/01/2017 09:42:37 11/23/19 16 Cancer Surgery completed Ramon duarte MA [facility] 10/19/2016 08:52:23 11/23/19 15 Cancer Surgery completed Ramon duarte MA [facility] 10/14/2015 09:10:48 10/05/19 15 Cancer Surgery completed Ramon duarte MA [facility] 03/03/2019 08:49:29 12/07/19 11 Joint Replacement completed Ramon duarte MA [facility] 12/28/2017 10:31:30 Hernia Repair completed Ramon duarte MA [facility] 10/13/2014 09:16:57 Tonsillectomy completed Ramon duarte MA [facility] 10/13/2014 09:16:57 Imaging Results Imaging Date Name Status LastModified by Organiz ation Details LastModified Time 04/29/2019 CT chest ldct lung program completed [facility] (Outpt Imaging) [address] [place], [address], 05/05/2019 09:14:11 06/03/2020 CT chest ldct lung program completed [facility] (Outpt Imaging) [address] [place], [address], 06/03/2020 15:15:07 06/29/2021 CT chest ldct lung program completed [facility] (Outpt Imaging) [address] [place], [address], 07/04/2021 18:01:03 Procedure Notes None recorded. Medical Equipment None Reported. Allergies Allergen ID Allergen Name Allergen Category Reaction Reaction Severity Criticality Documentation Date Start Date Code Code System Note Provider Name and Address Organization Details Recorded Time 30161 insect venom environme nt anaphylax is Not available Not available 10/14/2015 56692 UNK BEES Ramon gold MA [facility] 7 08:46:57 09034 honey bee venom medicatio n anaphylax is Not available Not available 04/17/2017 68620 7 RxNorm Ramon gold MA [facility] 7 08:46:52 Medications Name Sig Start Date [...] Not Available Not Available Not Available Afluria 7702-2873 (PF) 45 mcg (15 mcg x 3)/0.5 mL intramusc ular syringe active Not Available Not Available Not Available Fluarix Quad (PF) 60 mcg (15 mcg x 4)/0.5 mL IM syringe active Not Available Not Available Not Available Afluria (PF) 45 mcg(15 mcg x 3)/0.5 mL intramusc ular syringe 10/19 completed Not Available Not Available Not Available Afluria 8852-2895 (PF) 45 mcg(15 mcg x 3)/0.5 mL [...] Updated DateTime 8 173.355 cm 21.3 kg/m2 34651.5 2 g 97 % 97 % 81 /min 98.9 [degF] 149 mm[Hg] 76 mm[Hg] Yessica Sorenson [facility] 8 08:24:46 Date Recorded Body height Body mass index (BMI) Body weight Body temperature Heart rate Oxygen saturation Oxygen saturation in Arterial blood by Pulse oximetry Systolic blood pressure Diastolic blood pressure Provider Name and Address Organization Details Last Updated DateTime 9 173.355 cm 21.3 kg/m2 08882.5 2 g 98.3 [degF] 77 /min 96 % 96 % 148 mm[Hg] 82 mm[Hg] Ramon gold [facility] 9 08:52:23 Date Recorded Body height Body mass index (BMI) Body weight Heart rate Oxygen saturation Oxygen saturation in Arterial blood by Pulse oximetry Body temperature Systolic blood pressure Diastolic blood pressure Systolic blood pressure Diastolic blood pressure Provider Name and Address Organization Details Last Updated DateTime 9 173.355 cm 20.5 kg/m2 57123.2 6 g 71 /min 94 % 94 % 98.2 [degF] 167 mm[Hg] 79 mm[Hg] 158 mm[Hg] 79 mm[Hg] Heena [facility] 9 09:10:43 Date Recorded Systolic blood pressure Diastolic blood pressure Provider Name and Address Organization Details Last Updated DateTime 05/05/2019 142 mm[Hg] 72 mm[Hg] Geovani Benson PA-C [address], [address], [facility] 05/05/2019 09:19:59 Date Recorded Body height Body mass index (BMI) Body weight Body temperature Oxygen saturation Oxygen saturation in Arterial blood by Pulse oximetry Heart rate Systolic blood pressure Diastolic blood pressure Provider Name and Address Organization Details Last Updated DateTime 9 173.355 cm 20.9 kg/m2 95934.6 2 g 97 [degF] 97 % 97 % 82 /min 146 mm[Hg] 68 mm[Hg] Ramon gold MA [facility] 9 08:44:41 Date Recorded Systolic blood pressure Diastolic blood pressure Provider Name and Address Organization Details Last Updated DateTime 09/08/2019 130 mm[Hg] 77 mm[Hg] Geovani Benson PA-C [address] [facility] [address], [place], [address], [facility] 09/08/2019 09:19:27 Date Recorded Body height Body mass index (BMI) Body weight Heart rate Oxygen saturation Oxygen saturation in Arterial blood by Pulse oximetry Body temperature Systolic blood pressure Diastolic blood pressure Provider Name and Address Organization Details Last Updated DateTime 0 173.355 cm 19.6 kg/m2 49179.0 1 g 75 /min 98 % 98 % 97.52 [degF] 162 mm[Hg] 85 mm[Hg] Ramon gold MA [facility] 0 08:38:54 Date Recorded Systolic blood pressure Diastolic blood pressure Provider Name and Address Organization Details Last Updated DateTime 08/03/2020 120 mm[Hg] 78 mm[Hg] Ivy Salas [facility] 08/03/2020 13:08:37 Social History Question Answer Notes LastModified by Organizat ion Details LastModified Time Tobacco Smoking Status Current Every Day Smoker [place], [facility] 10/13/2014 09:16:57 Do You Have An Advance [...] available 10/13/2014 What Is Your Occupation? [employer] Information not available 09/08/2019 Have There Been [...] History Condition Response Other N Gout N Kidney Stones N Blood Diseases N Hyperthyroidism N Breast Cancer N Depression N COPD Y Lung Disease N Hypothyroidism N Defects or [...] Eczema N Diverticulitis N Abuse/Domestic Violence N Asthma N Allergies N Reflux/GERD N Hepatitis N Pulmonary Embolism N Hypertension N Chicken Pox N Autism Spectrum Disorder (ASD) N Osteoporosis N Immunizations Vaccine Type Date Status Note Provider Nam e and Address Organization Details Recorded Time Influenza, split virus, trivalent, preservative 4 completed Not Available [facility] 01/09/2022 18:38:15 Influenza, split virus, trivalent, preservative 5 completed Not Available [facility] 01/09/2022 18:38:15 zoster live 6 completed Not Available [facility] 01/09/2022 18:38:15 influenza, unspecified formulation 6 completed Not Available [facility] 01/09/2022 18:38:15 influenza, unspecified formulation 7 completed Not Available [facility] 01/09/2022 18:38:15 zoster live 8 completed Not Available [facility] 01/09/2022 18:38:15 zoster live 8 completed Not Available [facility] 01/09/2022 18:38:15 Td (adult), 2 Lf tetanus toxoid, preservative free, adsorbed 7 completed Not Available [facility] 01/09/2022 18:38:15 pneumococcal polysaccharide PPV23 9 completed Not Available [facility] 01/09/2022 18:38:15 Influenza, split virus, trivalent, preservative 1 completed Not Available [facility] 01/09/2022 18:38:15 influenza, seasonal, intradermal, preservative free 2 completed Not Available [facility] 01/09/2022 18:38:15 Influenza, split virus, trivalent, preservative 3 completed Not Available [facility] 01/09/2022 18:38:15 Tdap 3 completed Not Available [facility] 01/09/2022 18:38:15 Influenza, split virus, quadrivalent, PF 8 completed Not Available [facility] 10/11/2019 02:22:16 Influenza, split virus, quadrivalent, PF 9 completed Not Available [facility] 10/11/2019 02:22:10 Influenza, split virus, quadrivalent, PF 0 completed Ramon Dickson MA [facility] 07/26/2020 09:33:53 Past Encounters Encounter ID Performer Location Encounter Start Date Encounter Closed Date Diagnosis/Indication Diagnosis SNOMED-CT Code Diagnosis ICD10 Code Diagnosis Note [id number] autoEComm erce [address] [facility] [place] [address] 12/12/2006 00:00:00 [id number] autoEComm erce [address] [facility] [place] [address] 07/23/2008 00:00:00 [id number] autoEComm erce [address] [facility] [place] [address] 07/27/2009 00:00:00 [id number] autoEComm erce [address] [facility] [place] [address] 07/31/2011 00:00:00 [id number] autoEComm erce [address] [facility] [place] [address] 08/27/2012 00:00:00 [id number] autoEComm erce [address] [facility] [place] [address] 09/02/2013 00:00:00 [id number] autoEComm erce [address] [facility] [place] [address] 12/30/2013 00:00:00 [id number] Heidi Acostadina Main Office [address] [facility] [address] [place] [address] 10/13/2014 09:06:18 10/13/2014 09:55:36 Essential hypertension 31381071 Adult heal th examination 916829008 Chronic ob structive pulmonary disease 16231262 Tobacco de pendence syndrome 74396783 Screening for malignant neoplasm of prostate 433825098 Hyperlipidemia 40018653 Basal cell carcinoma of skin 858166084 Left ear pinna [id number] Ramon staples MA Main Office [address] [address] [place] [address] 03/03/2015 10:16:18 03/03/2015 11:08:05 Neck pain 45875978 Fatigue 04300963 [id number] Mo Lilly MD Main Office [address] [facility] [address] [place] [address] 10/14/2015 08:46:12 10/14/2015 09:49:29 Adult health examination 732220408 Z00.00 Essential hypertension 31314427 I10 Screening for malignant neoplasm of colon 529728520 Z12.11 Varicella vaccination 68 009834 Z23 Chronic ob structive pulmonary disease 87796802 J44.9 Neck pain 48244708 M54.2 Tobacco de pendence syndrome 75478082 F17.290 [id number] Toney Mauricio MD Main Office [address] [address] [place] [address] 02/17/2016 09:22:07 02/17/2016 10:41:00 Bronchitis 39198418 J40 Chronic ob structive pulmonary disease 03555030 J44.9 [id number] Mo Lilly MD Main Office [address] [address] [place] [address] 10/19/2016 08:41:09 10/19/2016 10:37:15 Adult health examination 468162774 Z00.00 Essential hypertension 00391842 I10 Good home readings. Will continue to monitor without meds Chronic ob structive pulmonary disease 21310486 J44.9 Neck pain 64800231 M54.2 Tobacco de pendence syndrome 94690118 F17.290 Raynaud's phenomenon 266 140459 I73.00 Hyperlipidemia 10928632 E78.5 Fatigue 52333615 R53.83 Acute exac erbation of chronic bronchitis 324133975 J44.1 [id number] Mo Lilly MD Main Office [address] [address] [place] [address] 04/17/2017 08:41:08 04/17/2017 09:33:01 Chronic obstructive pulmonary disease 38967608 J44.9 Essential hypertension 53584857 I10 Good home readings. Will continue to monitor without meds Muscle fasciculation 824 04838 R25.3 [id number] Karin Aguilar Main Office [address] [address] [place] [address] 05/01/2017 09:37:14 05/01/2017 10:39:16 Essential hypertension 50896942 I10 Good home readings. Will continue to monitor without meds Hyperlipidemia 27178307 E78.5 Muscle fasciculation 824 12137 R25.3 [id number] Mo Lilly MD Main Office [address] [facility] [address] [place] [address] 11/16/2017 13:54:47 11/16/2017 15:01:39 Acute exacerbation of chronic obstructive pulmonary disease 000518939 J44.1 sx x 7 days with worsening cough and SOB, hx COPD. will tx with zpak and prednisone . Likely no role for flu testing or tamiflu at this point 7 days after onset of illness. hydration, rest, meds as directed. LS imrpoved after neb- duoneb and 1 albuterol. [id number] Mo Lilly MD Main Office [address] [address] [place] [address] 12/28/2017 10:21:26 12/28/2017 11:30:53 Adult health examination 709666006 Z00.00 Essential hypertension 95269204 I10 Good home readings. Will continue to monitor without meds Screening for malignant neoplasm of lung 234844535 Z12.2 Tobacco de pendence syndrome 41336274 F17.290 Chronic ob structive pulmonary disease [id number] J44.9 Hyperlipidemia 26110142 E78.5 [id number] Mo Lilly MD Main Office [address] [address] [place] [address] 07/20/2018 08:06:32 07/20/2018 09:16:58 Chronic obstructive pulmonary disease 46802010 J44.9 Essential hypertension 04408838 I10 Good home readings. Will continue to monitor without meds Needs infl uenza immunization 552772392 Z23 Cramp in l ower leg associated with rest 107529540 G47.62 Tobacco de pendence syndrome 41810713 F17.290 Hyperlipidemia 49939553 E78.5 Fatigue 79363265 R53.83 Tick bite 94963353 S80.8 62A [id number] Mo Lilly MD Main Office [address] [facility] [address] [place] [address] 03/03/2019 08:31:15 03/03/2019 09:43:17 Adult health examination 634345051 Z00.00 Essential hypertension 29512636 I10 Tobacco de pendence syndrome 81232759 F17.290 Chronic ob structive pulmonary disease 26881570 J44.9 Hyperlipidemia 10617635 E78.5 Screening for malignant neoplasm of lung 735834718 Z87.891 Eligible patients must have >=30 pack years Macrocytos is - no anemia 441821350 D75.89 [id number] Geovani Benson PA-C Main Office [address] [address] [place] [address] 05/05/2019 08:32:52 05/05/2019 09:31:01 Essential hypertension 54909070 I10 bp stable at home, borderline elevated here - trending down here c multiple readings, likely component of white coat htn. cont med as dir, cont to monitor at home - call us if trending up = o/w, rec bring bp monitor to next ov to compare readings [id number] Geovani Benson PA-C Main Office [address] [address] [place] [address] 09/08/2019 08:35:31 09/08/2019 09:29:52 Chronic obstructive pulmonary disease 64748863 J44.9 pt states is using proair 3-4x/day in addition to symbicort and spiriva max doses - he is doing so to relieve chest congestion /coughing fit more so than sob -- advised pt to take an expectoran t like mucinex 1-2x/day in order to decrease reliances on alb (ie, use it prn) Essential hypertension 60233428 I10 bp stable, cont med as dir Needs infl uenza immunization 749501085 Z23 Tobacco de pendence syndrome 38398239 F17.290 [id number] Mo Lilly MD Main Office [address] [address] [place] [address] 07/26/2020 08:02:07 07/26/2020 09:12:54 Adult health examination 154884455 Z00.00 Essential hypertension 99060302 I10 Needs infl uenza immunization 564465705 Z23 Chronic ob structive pulmonary disease 55970630 J44.9 Hyperlipidemia 94409152 E78.5 Tobacco de pendence syndrome 33077148 F17.290 Cramp in l ower leg associated with rest 640776119 G47.62 Trial of compressio n stockings and drink tonic water after dinner. Fatigue 57572940 R53.83 Health Concerns Section Related Observation LastModified by Organization Detai ls LastModified Time None Recorded Concern Status LastModified by Organization Details LastModified Time None Recorded Advance Directives Directive Y: Payers Encounter Date Sequence Insurance Name Policy Number Policy Fermin Covered Member ID Fermin Member ID Guarantor Name 07/20/2018 1 [place] [facility] (O) [id number] Mo Aurelio Yan [id number] Mo Heredia 03/03/2019 1 [place] [employer] ([place]) [id number] Mo Aurelio Yan [id number] Mo Aurelio Yan 05/05/2019 1 [place] [employer] [place]) [id number] Mo Aurelio Yan [id number] Mo Heredia 09/08/2019 1 [place] [employer] [place] ([facility] [id number] Mo Aurelio Yan [id number] Mo Aurelio Yan 07/26/2020 1 [place] [employer] [place] ([facility]) [id number] Mo Heredia [id number] Mo Heredia Notes Date Note Type [...] to use of gabapentin. Mo Lilly MD [address] [address], [place], [address], [facility] 07/20/2018 09:18:49 9 text/html Here for PE visit. Notes pain in neck and upper back, though improved. Still smoking cigarettes approx 1 PPD Mo Lilly MD [address] [address], [place], [address], [facility] 03/03/2019 09:32:00 9 text/html COPDReported bypatient.Onset/Timing:chr onic; [...] over 130 consistently Mo Lilly MD [address] [address], [place], [address], [facility] 03/03/2019 09:32:00 9 text/html Hypertension F/UReported bypatient.Associated Symptoms:no dizziness; no lightheadedness; no chest pain; no shortness of breath; no palpitations; no edema; no calf pain with exertion Lifestyle:regular exercise; limiting/avoiding salt Medications:taking medications as directed; no side effects from medication; checks blood pressure at home, range: (120-130s/70s) Geovani Benson PA-C [address] [address], [place], [address], [facility] 05/05/2019 09:27:58 9 text/html COPDReported bypatient.Onset/Timing:chr onic: [...] home, range: (120-130s/70-80s) Geovani Benson PA-C [address], [address], [facility] 09/08/2019 09:38:48 0 text/html COPDReported bypatient.Onset/Timing:chr onic; [...] relaxer at night. Mo Lilly MD [address] [address], [place], [address], [facility] 07/26/2020 09:11:21
== END 2024-10-23 10:55 | disposition home or self-care (01) ==
LOC: HO.RESP 10:54
PROVIDERS: PCP Nurse Practitioner Family; Visit Provider Nurse Practitioner Family
DX: J44.9 Chronic obstructive pulmonary disease, unspecified (principal)
CPT/HCPCS: 94010; 94640; 94727; 94729

== ENCOUNTER → 2024-10-23 10:57 | Outpatient (BNV) | payer MEDICARE, SELFPAY | PROVIDERS: PCP Nurse Practitioner Family; Visit Provider Internal Medicine Pulmonary Disease | DX: J44.9 Chronic obstructive pulmonary disease, unspecified (principal) | CPT/HCPCS: 94060; 94727; 94729 ==

== ENCOUNTER 2025-01-19 09:36 | Outpatient (AMB) | payer MEDICARE, SELFPAY ==
--- NOTE | 2025-01-18 19:10 | MHC.OFFVIS ---
Vital Signs 01/19/25 09:42 Height 5 ft 7 in Weight 134 lb 7.712 oz BMI 21.1 BP 168/74 H Blood Pressure Location Lt brachial Position Sitting Pulse 77 Pulse Source Pulse Oximeter Pulse Oximetry (%) 98 Oxygen Delivery Method Room Air Intake Visit Reasons: Pneumonia Instrumental Musician Required: No Research Asst: Research Asst offered & declined Accompanied by: Self / Same As Patient Allergies bee venom protein (honey bee) Allergy (Severe, Verified 01/19/25 09:44) Anaphylaxis Medication List - Last Reconciled 01/19/25 by Antoinette Pack LPN albuterol sulfate 90 mcg/actuation 2 inhalations inhalation Q8H PRN 90 days amlodipine 10 mg PO DAILY 90 days fluticasone furoate-vilanterol 200-25 mcg/dose (Breo Ellipta) 1 inh PO DAILY ipratropium-albuterol 0.5 mg-3 mg(2.5 mg base)/3 mL 3 mL inhalation Q6H PRN nicotine (polacrilex) 4 mg buccal Q6H PRN umeclidinium 62.5 mcg/actuation (Incruse Ellipta) 1 inh inhalation DAILY HPI HPI Pneumonia: Details: Mo is a pleasant 70 year old male, current 1 ppd smoker with 50 pyh, with underlying COPD, HTN and h/o basal cell carcinoma under the care of [facility]. He was initially referred by the lung cancer screening program after abnormal chest CT which came back as a 4A. His chest CT was suggestive of aspiration pneumonia and he was treated with Augmentin on 08/08/24, noting significant improvement in symptoms. Repeat chest CT revealed stable findings and has an upcoming chest CT scheduled for March 2025. He continues to report suboptimal control with Breo, Incruse and albuterol MDI. He felt symptoms were better controlled with Symbicort and Spiriva however insurance denied over a year ago. He currently reports dyspnea on exertion and cough which he attributes to post nasal drip/seasonal allergies. He has been using Afrin PRN with good effect. He denies any visits to urgent care or hospitalizations related to respiratory distress. [facility] Medical History (Updated 10/20/24 @ 11:37 by Lore Rich NP) Ectatic aorta Tubular adenoma of colon (~2021) HTN (hypertension) COPD (chronic obstructive pulmonary disease) Nicotine dependence, cigarettes, uncomplicated History of basal cell cancer Surgical History History of colonoscopy History of tonsillectomy History of hernia repair History of hand surgery History of knee surgery History of basal cell carcinoma excision Social History Housing: House Patient Tobacco Use Status: Current everyday Tobacco user Tobacco use type: Cigarette Cigarette Packs Per Day: 1 Years Smoked: onset 18yo, 1ppd x 50yrs, 50pyh) e-Cigarette/Vaping Use: Never Used Second Hand Smoke Exposure: No service: Yes Current occupational status: retired Current occupation: [employer] Current occupational exposures/hazards: Yes Cognitive needs: No Hearing needs: No Vision needs: Yes Review of Systems Const Denies chills, Denies excessive sweating, Denies fever(s), Denies headache(s) and Denies night sweats Eyes Denies dry eyes, Denies irritation and Denies itchy eyes ENT Reports Normal hearing present, Denies headache(s), Denies nasal congestion, Denies nasal discharge, Denies post nasal drip and Denies sore throat Card Denies chest pain, Denies chest pain at rest, Denies chest pain with activity, Denies claudication, Denies leg edema, Reports dyspnea on exertion, Denies orthopnea and Denies paroxysmal nocturnal dyspnea Resp Denies change in phlegm color, Denies chest congestion, Reports cough, Denies hemoptysis, Denies excessive phlegm production, Denies pain on inspiration, Denies pain with cough, Reports dyspnea on exertion and Denies stridor Musc Denies myalgias Neuro Reports Normal hearing present and Denies headache(s) Endo Denies excessive sweating Paco/Lymph Denies lymphadenopathy Aller/Immun Denies itchy eyes and Denies seasonal rhinorrhea Physical Exam Vital Signs: Last Vital Signs Pulse 77 01/19/25 09:42 BP 168/74 H 01/19/25 09:42 Pulse Ox 98 01/19/25 09:42 Oxygen Delivery Method Room Air 01/19/25 09:42 BMI result Body Mass Index 21.1 Const General: cooperative, healthy appearing, comfortable, no acute distress and alert Orientation/consciousness: patient oriented x3 Limitations: no limitations HEENT Head: Yes normal to inspection, Yes normocephalic and Yes atraumatic Ears: hearing grossly normal bilaterally and external ears normal Eyes General: appearance normal, both eyes and all related structures Eyelids: Yes eyelids normal Sclerae: sclerae normal EOM: EOMs intact bilaterally Neck Neck: Yes normal visual inspection and Yes no lymphadenopathy Lymphatic: no lymphadenopathy noted Chest Chest palpation & inspection: normal inspection of the chest Resp Effort & Inspection: normal respiratory effort, able to speak in complete sentences, no audible wheezes, no cough, no stridor, not tachypneic, no tripod positioning, no use of accessory muscles and prolonged expiratory phase Auscultation: no wheezes and diminished lung sounds Cardio Jugular venous distension: no JVD Rate: regular rate Rhythm: regular rhythm Skin Other: warm, dry General skin exam: no rashes or lesions noted Neuro General: patient oriented x3 Cranial nerves: Yes Normal hearing present Cognition (Neuro): normal cognition Gait exam (Neuro): Normal gait present Extrem General: Yes normal to inspection, Yes capillary refill normal, Yes no clubbing, cyanosis or edema and Yes no pedal edema Psych Appearance: grossly normal and well kempt Speech and movement: Normal speech and movement present and Clear speech present Affect: normal affect Attitude: cooperative Thought process: Normal thought process present Thought content: Normal thought content present Insight: Good insight present (Psych) Judgement: Good judgement present (Psych) Assessment & Plan Assessment & Plan (1) COPD (chronic obstructive pulmonary disease): Code(s): J44.9 - Chronic obstructive pulmonary disease, unspecified Category: Medical (2) Nicotine dependence, cigarettes, uncomplicated: Comment: (current smoker - onset 18yo, 1ppd x 50yrs, 50pyh) Code(s): F17.210 - Nicotine dependence, cigarettes, uncomplicated Category: Medical (3) Bronchiectasis: Code(s): J47.9 - Bronchiectasis, uncomplicated Category: Medical (4) Multiple pulmonary nodules: Code(s): R91.8 - Other nonspecific abnormal finding of lung field Category: Medical Plan At this time, he reports suboptimal control with current regimen. Will attempt to send in Symbicort in place of Breo and Combivent as he reports minimal improvement with albuterol MDI. Will also send flutter valve to improve mucous clearance after nebulized therapy. Continue Incruse. Briefly discussed adding Theophylline to regimen, will hold off to see how symptoms are with change in medications. Discussed importance of smoking cessation however he is not ready to quit at this time. He has attempted lozenges with decrease in cravings and will attempt again. All questions were answered and patient is in agreement of plan. Will follow up to review Chest CT results or sooner if needed. Medications: New budesonide-formoterol 160-4.5 mcg/actuation (Symbicort) 2 puffs inhalation Q12H 10.2 grams 3RF ipratropium-albuterol 20-100 mcg/actuation (Combivent Respimat) 1 puff inhalation Q6H 4 grams 4RF Coding Level of Care Code Est Pt Level 4 (17871) Diagnoses COPD (chronic obstructive pulmonary disease) J44.9 Nicotine dependence, cigarettes, uncomplicated F17.210 Bronchiectasis J47.9 Multiple pulmonary nodules R91.8
[2025-01-19 09:42] VITALS: BP 168/74; PULSE 77; O2SAT 98; BMI 21.1
== END 2025-01-19 10:43 | disposition home or self-care (01) ==
LOC: HO.HPS 09:37
PROVIDERS: PCP Nurse Practitioner Family; Visit Provider Nurse Practitioner Family
DX: J44.9 Chronic obstructive pulmonary disease, unspecified (principal); F17.210 Nicotine dependence, cigarettes, uncomplicated; J47.9 Bronchiectasis, uncomplicated; R91.8 Other nonspecific abnormal finding of lung field
CPT/HCPCS: 99214

== ENCOUNTER → 2025-01-19 09:36 | Outpatient (BNVA) | payer MEDICARE, SELFPAY | PROVIDERS: PCP Nurse Practitioner Family; Visit Provider Nurse Practitioner Family | DX: J44.9 Chronic obstructive pulmonary disease, unspecified (principal); J47.9 Bronchiectasis, uncomplicated; R91.8 Other nonspecific abnormal finding of lung field; F17.210 Nicotine dependence, cigarettes, uncomplicated | CPT/HCPCS: 99212 ==

== ENCOUNTER 2025-03-23 11:11 | Outpatient (AMB) | payer MEDICARE, SELFPAY ==
[2025-03-23 11:14] VITALS: BP 160/70; PULSE 76; O2SAT 96; BMI 20.4
--- NOTE | 2025-03-23 11:14 | A.OFFPC_ITS ---
Vital Signs 03/23/25 11:14 03/23/25 11:55 Height 5 ft 7 in Weight 130 lb BMI 20.4 BP 160/70 H 134/68 Blood Pressure Location Lt brachial Rt brachial Position Sitting Sitting Pulse 76 Pulse Source Pulse Oximeter Pulse Oximetry (%) 96 Oxygen Delivery Method Room Air Intake Visit Reasons: 6 month follow up Manager Digital Required: No Accompanied by: Self / Same As Patient Allergies bee venom protein (honey bee) Allergy (Severe, Verified 03/23/25 11:49) Anaphylaxis Medication List - Last Reconciled 03/23/25 by Mert Brewer [facility] albuterol sulfate 90 mcg/actuation 2 inhalations inhalation Q8H PRN 90 days amlodipine 10 mg PO DAILY 90 days budesonide-formoterol 160-4.5 mcg/actuation (Symbicort) 2 puffs inhalation Q12H ipratropium-albuterol 0.5 mg-3 mg(2.5 mg base)/3 mL 3 mL inhalation Q6H PRN ipratropium-albuterol 20-100 mcg/actuation (Combivent Respimat) 1 puff inhalation Q6H nicotine (polacrilex) 4 mg buccal Q6H PRN Tobacco use date assessed: 10/08/24 Fall risk assessment: No Falls in past year Last assessed Fall Risk: 03/23/25 Dental Screening Dental Screen Date: 10/08/24 HPI 6 month follow up HPI Details Chief Complaint The patient presents for follow-up of hypertension. History of Present Illness The patient is a 70-year-old male presenting with follow-up for hypertension management. He reports that his blood pressure readings are more stable at home compared to the office measurements. He denies experiencing any chest pain, dyspnea, abdominal pain, hematochezia, constipation, or diarrhea. The patient continues to smoke and is under the care of a pulmonary team for annual low-dose CT scans as part of lung cancer screening. He maintains a skinny stature and adheres to his prescribed medication regimen. Social History - Tobacco use: The patient continues to smoke. Health Maintenance - Annual low-dose CT scan for lung cance r screening. Review of Systems - Cardiovascular: Denies chest pain, diz ziness, blurred vision, HUGHES - Respiratory: Denies dyspnea. - Gastrointestinal: Denies abdominal kaveh n, hematochezia, constipation, or diarrhea. Physical Exam General: Cooperative, healthy appearing, comfortable, no acute distress and well developed Orientation: Patient oriented x3 Limitations: No limitations Head: Normal to inspection Ears: Hearing grossly normal bilaterally Nose: Normal external nose present Face and sinus: Normal facial exam Eyes: Appearance normal, both eyes and all related structures Neck: Normal visual inspection and Yes full ROM Respiratory: scattered faint wheezes and dim bilat Cardiovascular: Regular rate and rhythm. Normal S1 and S2 GI: Normal to inspection. Soft to palpation and nontender Skin: No rashes or lesions noted Neuro: Patient oriented x3 Extremities: Normal to inspection Results Plan The patient will continue with his current antihypertensive regimen, as his blood pressure is stable at home. He is advised to continue annual low-dose CT scans for lung cancer screening due to his smoking history. Lab orders have been entered, and he is expected to complete them in the near future. Discussion Notes I discussed with the patient the importance of maintaining his current antihypertensive regimen and the need for regular monitoring of his blood pressure at home. We also reviewed the significance of annual low-dose CT scans for lung cancer screening, given his smoking history. The patient was informed about the lab orders and the necessity of completing them soon. Patient Instructions - Continue taking your blood pressure me dication as prescribed. - Monitor your blood pressure at home re gularly. - Attend your annual low-dose CT scan fo r lung cancer screening. - Complete the lab tests as soon as poss ible. [facility] Medical History Ectatic aorta Tubular adenoma of colon (~2021) HTN (hypertension) COPD (chronic obstructive pulmonary disease) Nicotine dependence, cigarettes, uncomplicated History of basal cell cancer Surgical History History of colonoscopy History of tonsillectomy History of hernia repair History of hand surgery History of knee surgery History of basal cell carcinoma excision Social History Housing: House Patient Tobacco Use Status: Current everyday Tobacco user Tobacco use type: Cigarette Cigarette Packs Per Day: 1 Years Smoked: onset 18yo, 1ppd x 50yrs, 50pyh) e-Cigarette/Vaping Use: Never Used Second Hand Smoke Exposure: No service: Yes Current occupational status: retired Current occupation: [employer] Current occupational exposures/hazards: Yes Cognitive needs: No Hearing needs: No Vision needs: Yes Questionnaire Thrive Questionnaire Date Thrive assessed: 03/23/25 I am a: Patient What is your living situation today?: I have a steady place to live Within the past 12 months, did the food you bought not last and you didn't have the money to get more?: Never true Within the past 12 months, did you worry whether your food would run out before you got money to buy more?: Never true Do you have trouble paying for medicines?: No Do you have trouble getting transportation to medical appointments?: No Do you have trouble paying your heating and electricity bill?: No Do you have trouble taking care of your child, family member or friend?: No Do you have trouble with day-to-day activities such as bathing, preparing meals, shopping, managing finances, etc.?: No Are you currently unemployed and looking for a job?: No Are you interested in more education?: No Please select the resources that you would like help with: None Currently or been in a relationship where the following occur: No concerns reported THRIVE Score: 0 YONI-7 AMB Questionnaire YONI-7 Date YONI - 7 assessed: 10/08/24 Source: Developed by Drs. Jesse Moscoso, Maryan Cooper, Keith Villatoro and colleagues, with an educational harriett from [employer]. Physical exam (Primary Care) Vital Signs: Last Vital Signs Pulse 76 03/23/25 11:14 BP 160/70 H 03/23/25 11:14 Pulse Ox 96 03/23/25 11:14 Oxygen Delivery Method Room Air 03/23/25 11:14 BMI result Body Mass Index 20.4 Tobacco/Smoking Status: Tobacco use Status Tobacco use date assessed 10/08/24 03/23/25 11:16 Patient Tobacco Use Status Current everyday Tobacco 03/23/25 11:16 Tobacco use type Cigarette 03/23/25 11:16 e-Cigarette/Vaping Use Never Used 03/23/25 11:16 Thrive Assessment: Date of Thrive Assessment Date Thrive assessed 03/23/25 03/23/25 11:20 Currently or been in a relationship where the following occur: No concerns reported Coding Level of Care Code Est Pt Level 3 (06337) Diagnoses HTN (hypertension) I10 Assessment & Plan Assessment & Plan (1) HTN (hypertension): Code(s): I10 - Essential (primary) hypertension Category: Medical Plan . Orders: Orders Complete Blood Count Auto Diff Today I10 - Essential (primary) hypertension Comprehensive [place]. Panel Fast Today I10 - Essential (primary) hypertension UA CC w/rflx Micro + Cult Today I10 - Essential (primary) hypertension TSH reflex Free T4 Today I10 - Essential (primary) hypertension Lipid Panel Today I10 - Essential (primary) hypertension
[2025-03-23 11:55] VITALS: BP 134/68
== END 2025-03-23 11:55 | disposition home or self-care (01) ==
LOC: HO.HMCC 11:12
PROVIDERS: PCP Nurse Practitioner Family; Visit Provider Nurse Practitioner Family
DX: I10 Essential (primary) hypertension (principal)

== ENCOUNTER → 2025-03-23 11:11 | Outpatient (BNVA) | payer MEDICARE, SELFPAY | PROVIDERS: PCP Nurse Practitioner Family; Visit Provider Nurse Practitioner Family | DX: I10 Essential (primary) hypertension (principal); Z79.899 Other long term (current) drug therapy | CPT/HCPCS: 99212 ==

== ENCOUNTER 2025-03-31 08:45 | Outpatient (REF) | payer MEDICARE, SELFPAY ==
[2025-03-31 11:03] LABS: MANUAL DIFF FLAG NO
[2025-03-31 11:08] LABS: Hematocrit 42.2 % (42.0-52.0); Hemoglobin 14.5 g/dl (14.0-18.0); Imm Gran Abs Auto 0.07 X10*3/uL (0.00-0.03); Imm Gran Pct Auto 0.8 % (0.0-0.4); Lymphocytes Absolute Auto 1.6 X10*3/uL (1.2-4.9); Mean Corpuscular HGB Conc 34.4 g/dl (31.0-36.0); Mean Corpuscular Hemoglobin 31.3 pg (27.0-33.0); Mean Corpuscular Volume 90.9 fL (80.0-98.0); NRBC Abs Auto 0.000 X10*3/uL (0.0-0.012); NRBC Pct Auto 0.0 /100WBC (0.0-0.2); Platelet Count 348 X10*3/uL (160-400); Red Blood Count 4.64 X10*6/uL (4.60-5.80); White Blood Count 8.9 X10*3/uL (4.8-10.8)
[2025-03-31 11:09] LABS: Appearance Urine Clear; Glucose Urine UA Negative (Negative); PH 7.5 (5.0-9.0); Specific Gravity - Urine <= 1.005 (1.005-1.025)
[2025-03-31 11:55] LABS: Alanine Aminotransferase 30 U/L (0-40); Albumin Level 4.2 g/dL (3.5-5.0); Alkaline Phosphatase 75 U/L (39-117); Anion Gap 10 (12-20); Aspartate Amino Transferase 36 U/L (5-37); Blood Urea Nitrogen 6 mg/dL (9-16); Calcium 8.7 mg/dL (8.4-10.2); Carbon Dioxide 28 mmol/L (22-29); Chloride 99 mmol/L (96-108); Cholesterol 193 mg/dL (<200); Estimated Glomerular Filt Rate > 60; HDL Cholesterol 114 mg/dL (>40); Potassium 4.5 mmol/L (3.3-5.1); Sodium 132 mmol/L (135-145); Total Protein 6.7 g/dL (6.5-8.0); Triglycerides 32 mg/dL (<150)
== END 2025-03-31 08:46 | disposition home or self-care (01) ==
LOC: HO.HMGCLDS 08:45
PROVIDERS: PCP Nurse Practitioner Family; Visit Provider Nurse Practitioner Family
DX: I10 Essential (primary) hypertension (principal)
CPT/HCPCS: 36415; 80053; 80061; 81003; 84443; 85025

== ENCOUNTER 2025-04-06 07:05 | Outpatient (REF) | payer MEDICARE, SELFPAY ==
--- NOTE | ~2025-04-06 | CT_ITS ---
CLINICAL HISTORY: F17.210 - Nicotine dependence, cigarettes, uncomplicated CT chest without contrast Comparison: CT/SR - CT LUNG SCREEN FOLLOW UP - 10/09/24 10:[address]/OT/NM/SR - CT LUNG SCREENING - 07/14/24 13:03 EDT CR/SR - XR CHEST 2V - 05/27/24 10:19 EDT Findings: Normal heart size. No pericardial effusion. Calcific coronary artery disease: Moderate No bulky mediastinal lymphadenopathy. No mediastinal masses or fluid collections Centrilobular emphysema. Improving in the bilateral lower lobe discoid atelectasis and probable pleural-parenchymal scarring. The nodular opacity in the right lower lobe abutting the major pleura measures 7 mm previously measured 15 mm probably postinflammatory (series 4 image 84/174). Stable 4 mm pleural-based nodule superior segment left lower lobe axial (series 4 image 49/174 ) No pneumothorax or pleural effusions. Central airways are patent. Stable traction bronchiectasis lower lobes. No thyroid nodules. No chest wall masses. No axillary adenopathy. Limited view of the upper abdomen is normal. No acute fractures or pathologic bone lesions. Impression: 1. Improvement in the bilateral lower lobe discoid atelectasis and pleural-parenchymal scarring. Resolving nodular opacities as described. Stable left lower lobe pleural base pulmonary nodule. Centrilobular emphysema. Traction bronchiectasis. 2. Moderate calcified coronary artery disease. 3. Continue annual CT lung screening This document has been electronically signed by: Mavr Macias MD on 04/06/2025 17:11:47
== END 2025-04-06 07:06 | disposition home or self-care (01) ==
LOC: HO.CT 07:05
PROVIDERS: PCP Nurse Practitioner Family; Visit Provider Nurse Practitioner Family
DX: R91.8 Other nonspecific abnormal finding of lung field (principal); F17.210 Nicotine dependence, cigarettes, uncomplicated
CPT/HCPCS: 71250

== ENCOUNTER → 2025-04-06 07:07 | Outpatient (BNV) | payer MEDICARE, SELFPAY | PROVIDERS: PCP Nurse Practitioner Family; Visit Provider Radiology Diagnostic Radiology | DX: J98.11 Atelectasis (principal); R91.1 Solitary pulmonary nodule; J47.9 Bronchiectasis, uncomplicated; J43.2 Centrilobular emphysema; I25.10 Atherosclerotic heart disease of native coronary artery without angina pectoris | CPT/HCPCS: 71250 ==

== ENCOUNTER 2025-04-20 10:01 | Outpatient (AMB) | payer MEDICARE, SELFPAY ==
[2025-04-20 10:07] VITALS: BP 148/60; PULSE 74; O2SAT 98; BMI 19.5
--- NOTE | 2025-04-20 10:07 | MHC.OFFVIS ---
Vital Signs 04/20/25 10:07 Height 5 ft 7 in Weight 124 lb 8.979 oz BMI 19.5 BP 148/60 H Blood Pressure Location Rt brachial Position Sitting Pulse 74 Pulse Source Pulse Oximeter Pulse Oximetry (%) 98 Oxygen Delivery Method Room Air Intake Visit Reasons: copd Allergies bee venom protein (honey bee) Allergy (Severe, Verified 04/20/25 10:10) Anaphylaxis HPI HPI copd: Details: Mo is a pleasant 70 year old male, current 1 ppd smoker with 50 pyh, with underlying COPD, HTN and h/o basal cell carcinoma under the care of [facility]. He was initially referred by the lung cancer screening program after abnormal chest CT which came back as a 4A. His chest CT was suggestive of aspiration pneumonia and he was treated with Augmentin on 08/08/24, noting significant improvement in symptoms. Repeat chest CT revealed stable findings and has an upcoming chest CT scheduled for March 2025 which he presents to review today. At the last visit, he had started combivent in addition to Spiriva with notable improvement in symptoms. Unfortunately had discontinued Incruse and continues to use albuterol frequently, however less than prior. He denies any visits to urgent care or hospitalizations related to respiratory distress. [facility] Medical History Ectatic aorta Tubular adenoma of colon (~2021) HTN (hypertension) COPD (chronic obstructive pulmonary disease) Nicotine dependence, cigarettes, uncomplicated History of basal cell cancer Surgical History History of colonoscopy History of tonsillectomy History of hernia repair History of hand surgery History of knee surgery History of basal cell carcinoma excision Social History Housing: House Patient Tobacco Use Status: Current everyday Tobacco user Tobacco use type: Cigarette Cigarette Packs Per Day: 1 Years Smoked: onset 18yo, 1ppd x 50yrs, 50pyh) e-Cigarette/Vaping Use: Never Used Second Hand Smoke Exposure: No service: Yes Current occupational status: retired Current occupation: [email or web address] Current occupational exposures/hazards: Yes Cognitive needs: No Hearing needs: No Vision needs: Yes Review of Systems Const Denies chills, Denies excessive sweating, Denies fever(s), Denies headache(s) and Denies night sweats Eyes Denies dry eyes, Denies irritation and Denies itchy eyes ENT Reports Normal hearing present, Denies headache(s), Denies nasal congestion, Denies nasal discharge and Denies sore throat Card Denies chest pain, Denies chest pain at rest, Denies chest pain with activity, Denies claudication, Denies leg edema, Reports dyspnea on exertion, Denies orthopnea and Denies paroxysmal nocturnal dyspnea Resp Denies change in phlegm color, Denies chest congestion, Reports cough, Denies hemoptysis, Denies excessive phlegm production, Denies pain on inspiration, Denies pain with cough, Reports dyspnea on exertion, Denies stridor and Reports wheezing Musc Denies myalgias Neuro Reports Normal hearing present and Denies headache(s) Endo Denies excessive sweating Paco/Lymph Denies lymphadenopathy Aller/Immun Denies itchy eyes, Denies seasonal rhinorrhea and Reports wheezing Physical Exam Vital Signs: Last Vital Signs Pulse 74 04/20/25 10:07 BP 148/60 H 04/20/25 10:07 Pulse Ox 98 04/20/25 10:07 Oxygen Delivery Method Room Air 04/20/25 10:07 BMI result Body Mass Index 19.5 Const General: cooperative, healthy appearing, comfortable, no acute distress and alert Orientation/consciousness: patient oriented x3 Limitations: no limitations HEENT Head: Yes normal to inspection, Yes normocephalic and Yes atraumatic Ears: hearing grossly normal bilaterally and external ears normal Eyes General: appearance normal, both eyes and all related structures Eyelids: Yes eyelids normal Sclerae: sclerae normal EOM: EOMs intact bilaterally Neck Neck: Yes normal visual inspection and Yes no lymphadenopathy Lymphatic: no lymphadenopathy noted Chest Chest palpation & inspection: normal inspection of the chest Resp Effort & Inspection: normal respiratory effort, able to speak in complete sentences, no audible wheezes, no cough, no stridor, not tachypneic, no tripod positioning, no use of accessory muscles and prolonged expiratory phase Auscultation: no wheezes and diminished lung sounds Cardio Jugular venous distension: no JVD Rate: regular rate Rhythm: regular rhythm Skin Other: warm, dry General skin exam: no rashes or lesions noted Neuro General: patient oriented x3 Cranial nerves: Yes Normal hearing present Cognition (Neuro): normal cognition Gait exam (Neuro): Normal gait present Extrem General: Yes normal to inspection, Yes capillary refill normal, Yes no clubbing, cyanosis or edema and Yes no pedal edema Psych Appearance: grossly normal and well kempt Speech and movement: Normal speech and movement present and Clear speech present Affect: normal affect Attitude: cooperative Thought process: Normal thought process present Thought content: Normal thought content present Insight: Good insight present (Psych) Judgement: Good judgement present (Psych) Results Reviewed Results Reviewed: [address] [address] [address] Scan Report Signed Patient: Mo Heredia MR#: [id number] : 1955 Acct:[id number] Age/Sex: 70 / M ADM Date: 04/06/25 Loc: HO.CT Attending Dr: Lore Rich NP Ordering Physician: Lore Rich NP Date of Service: 04/06/25 Procedure(s): CT chest wo IV con Accession Number(s): [id number] cc: Mert Brewer SHOWROOM EXECUTIVE DIRECTOR-; Lore Rich NP~ Report Number: [id number]: Total DLP = 96.00 mGy-cm CLINICAL HISTORY: F17.210 - Nicotine dependence, cigarettes, uncomplicated CT chest without contrast Comparison: CT/SR - CT LUNG SCREEN FOLLOW UP - 10/09/24 10:[address]/OT/RI/SR - CT LUNG SCREENING - 07/14/24 13:03 EDT CR/SR - XR CHEST 2V - 05/27/24 10:19 EDT Findings: Normal heart size. No pericardial effusion. Calcific coronary artery disease: Moderate No bulky mediastinal lymphadenopathy. No mediastinal masses or fluid collections Centrilobular emphysema. Improving in the bilateral lower lobe discoid atelectasis and probable pleural-parenchymal scarring. The nodular opacity in the right lower lobe abutting the major pleura measures 7 mm previously measured 15 mm probably postinflammatory (series 4 image 84/174). Stable 4 mm pleural-based nodule superior segment left lower lobe axial (series 4 image 49/174 ) No pneumothorax or pleural effusions. Central airways are patent. Stable traction bronchiectasis lower lobes. No thyroid nodules. No chest wall masses. No axillary adenopathy. Limited view of the upper abdomen is normal. No acute fractures or pathologic bone lesions. Impression: 1. Improvement in the bilateral lower lobe discoid atelectasis and pleural-parenchymal scarring. Resolving nodular opacities as described. Stable left lower lobe pleural base pulmonary nodule. Centrilobular emphysema. Traction bronchiectasis. 2. Moderate calcified coronary artery disease. 3. Continue annual CT lung screening This document has been electronically signed by: Marv Macias MD on 04/06/2025 17:11:47 Dictated By: Marv Macias MD Signed By: <Electronically signed by Marv Macias MD in OV> 04/06/251712 DD/ 10 TD/TT: 04/06/251710 Import Export Manager: Assessment & Plan Assessment & Plan (1) COPD (chronic obstructive pulmonary disease): Code(s): J44.9 - Chronic obstructive pulmonary disease, unspecified Category: Medical (2) Nicotine dependence, cigarettes, uncomplicated: Comment: (current smoker - onset 18yo, 1ppd x 50yrs, 50pyh) Code(s): F17.210 - Nicotine dependence, cigarettes, uncomplicated Category: Medical (3) Bronchiectasis: Code(s): J47.9 - Bronchiectasis, uncomplicated Category: Medical (4) Multiple pulmonary nodules: Code(s): R91.8 - Other nonspecific abnormal finding of lung field Category: Medical Plan At this time, he reports moderate control with current regimen. Encouraged patient to continue Symbicort in addition to Incruse, using Combivent/DuoNeb PRN. Discussed adverse effects of increased use of albuterol. Discussed importance of smoking cessation however he is not ready to quit at this time. Reviewed chest CT which revealed improvement in the bilateral lower lobe discoid atelectasis and pleural-parenchymal scarring. Resolving nodular opacities as described. Report states stable left lower lobe pleural base pulmonary nodule, however appears more solid. Will repeat in 6 months to assess stability, if stable then can continue with annual LDCT. All questions were answered and patient is in agreement of plan. Will follow up in 3 months or sooner if needed. Orders: Orders CT chest wo IV con 6 Months R91.8 - Other nonspecific abnormal finding of lung field Medications: New umeclidinium 62.5 mcg/actuation (Incruse Ellipta) 1 inh inhalation DAILY 90 ea 1RF Refilled ipratropium-albuterol 20-100 mcg/actuation (Combivent Respimat) 1 puff inhalation Q6H 4 grams 4RF budesonide-formoterol 160-4.5 mcg/actuation (Symbicort) 2 puffs inhalation Q12H 3 ea 3RF Coding Level of Care Code Est Pt Level 4 (63015) Diagnoses COPD (chronic obstructive pulmonary disease) J44.9 Nicotine dependence, cigarettes, uncomplicated F17.210 Bronchiectasis J47.9 Multiple pulmonary nodules R91.8
== END 2025-04-20 10:49 | disposition home or self-care (01) ==
LOC: HO.HPS 10:02
PROVIDERS: PCP Nurse Practitioner Family; Visit Provider Nurse Practitioner Family
DX: J44.9 Chronic obstructive pulmonary disease, unspecified (principal); F17.210 Nicotine dependence, cigarettes, uncomplicated; J47.9 Bronchiectasis, uncomplicated; R91.8 Other nonspecific abnormal finding of lung field
CPT/HCPCS: 99214

== ENCOUNTER → 2025-04-20 10:01 | Outpatient (BNVA) | payer MEDICARE, SELFPAY | PROVIDERS: PCP Nurse Practitioner Family; Visit Provider Nurse Practitioner Family | DX: J47.9 Bronchiectasis, uncomplicated (principal); J44.9 Chronic obstructive pulmonary disease, unspecified; F17.210 Nicotine dependence, cigarettes, uncomplicated; R91.8 Other nonspecific abnormal finding of lung field | CPT/HCPCS: 99212 ==

== ENCOUNTER 2025-05-01 09:49 | Outpatient (REF) | payer MEDICARE, SELFPAY ==
[2025-05-01 13:54] LABS: Alanine Aminotransferase 20 U/L (0-40); Albumin Level 4.0 g/dL (3.5-5.0); Alkaline Phosphatase 73 U/L (39-117); Anion Gap 13 (12-20); Aspartate Amino Transferase 34 U/L (5-37); Blood Urea Nitrogen 6 mg/dL (9-16); Calcium 9.4 mg/dL (8.4-10.2); Carbon Dioxide 26 mmol/L (22-29); Chloride 99 mmol/L (96-108); Estimated Glomerular Filt Rate > 60; Potassium 4.2 mmol/L (3.3-5.1); Sodium 134 mmol/L (135-145); Total Protein 6.5 g/dL (6.5-8.0)
[2025-05-01 13:58] LABS: Osmolality, Serum 276 mosm/kg (281-305)
== END 2025-05-01 09:50 | disposition home or self-care (01) ==
LOC: HO.HMGCLDS 09:49
PROVIDERS: PCP Nurse Practitioner Family; Visit Provider Nurse Practitioner Family
DX: E87.1 Hypo-osmolality and hyponatremia (principal)
CPT/HCPCS: 36415; 80053; 83930

== ENCOUNTER 2025-08-17 09:42 | Outpatient (AMB) | payer MEDICARE, SELFPAY ==
--- NOTE | 2025-08-17 09:46 | A.OFFVIS_ITS ---
Vital Signs 08/17/25 09:48 Height 5 ft 7 in Weight 121 lb 4.068 oz BMI 19.0 BP 140/50 H Blood Pressure Location Rt brachial Position Sitting Pulse 84 Pulse Source Pulse Oximeter Pulse Oximetry (%) 97 Oxygen Delivery Method Room Air Intake Visit Reasons: copd Allergies bee venom protein (honey bee) Allergy (Severe, Verified 08/17/25 09:50) Anaphylaxis HPI HPI copd: Details: Mo is a pleasant 70 year old male, current 50 pack year smoker, with underlying severe COPD, HTN and h/o basal cell carcinoma under the care of [facility]. He was initially referred by the lung cancer screening program after abnormal chest CT 06/2024, came back as a RADS 4A. His chest CT was suggestive of aspiration pneumonia and he was treated with Augmentin on 08/08/24, noting significant improvement in symptoms. Repeat chest CT 09/2024 revealed resolution of prior findings and [address] 03/2025 demonstrated improvement in the bilateral lower lobe discoid atelectasis and pleural- parenchymal scarring, resolving nodular opacities, and stable left lower lobe pleural base pulmonary nodule. He has upcoming [address] to assess for stability given waxing and waning opacities. Since the last visit patient reports relatively good control of respiratory symptoms on current regimen of Breyna, Incruse and Combivent PRN. Over the last few days patient reports increased chest congestion and wheezing, productive cough with clear sputum, dyspnea at baseline. Denies fevers or chills. Of note, patient currently smoking 1 ppd and not ready to quit. [facility] Medical History Ectatic aorta Tubular adenoma of colon (~2021) HTN (hypertension) COPD (chronic obstructive pulmonary disease) Nicotine dependence, cigarettes, uncomplicated History of basal cell cancer Surgical History History of colonoscopy History of tonsillectomy History of hernia repair History of hand surgery History of knee surgery History of basal cell carcinoma excision Social History Housing: House Patient Tobacco Use Status: Current everyday Tobacco user Tobacco use type: Cigarette Cigarette Packs Per Day: 1 Years Smoked: onset 18yo, 1ppd x 50yrs, 50pyh) e-Cigarette/Vaping Use: Never Used Second Hand Smoke Exposure: No service: Yes Current occupational status: retired Current occupation: [employer] Current occupational exposures/hazards: Yes Cognitive needs: No Hearing needs: No Vision needs: Yes Review of Systems Const Denies chills, Denies excessive sweating, Denies fever(s), Denies headache(s) and Denies night sweats Eyes Denies dry eyes, Denies irritation and Denies itchy eyes ENT Reports Normal hearing present, Denies headache(s), Denies nasal congestion, Denies nasal discharge and Denies sore throat Card Denies chest pain, Denies chest pain at rest, Denies chest pain with activity, Denies claudication, Denies leg edema, Reports dyspnea on exertion, Denies orthopnea and Denies paroxysmal nocturnal dyspnea Resp Denies change in phlegm color, Reports cough, Denies hemoptysis, Denies excessive phlegm production, Denies pain on inspiration, Denies pain with cough, Reports dyspnea on exertion, Denies stridor and Reports wheezing Musc Denies myalgias Neuro Reports Normal hearing present and Denies headache(s) Endo Denies excessive sweating Paco/Lymph Denies lymphadenopathy Aller/Immun Denies itchy eyes, Denies seasonal rhinorrhea and Reports wheezing Physical Exam Vital Signs: Last Vital Signs Pulse 84 08/17/25 09:48 BP 140/50 H 08/17/25 09:48 Pulse Ox 97 08/17/25 09:48 Oxygen Delivery Method Room Air 08/17/25 09:48 BMI result Body Mass Index 19.0 Const General: cooperative, comfortable, no acute distress and alert Nutritional Appearance: thin Orientation/consciousness: patient oriented x3 Limitations: no limitations HEENT Head: Yes normal to inspection, Yes normocephalic and Yes atraumatic Ears: hearing grossly normal bilaterally and external ears normal Eyes General: appearance normal, both eyes and all related structures Eyelids: Yes eyelids normal Sclerae: sclerae normal EOM: EOMs intact bilaterally Neck Neck: Yes normal visual inspection and Yes no lymphadenopathy Lymphatic: no lymphadenopathy noted Chest Chest palpation & inspection: normal inspection of the chest Resp Effort & Inspection: normal respiratory effort, able to speak in complete sente nces, no audible wheezes, no cough, no stridor, not tachypneic, no tripod positioning, no use of accessory muscles and prolonged expiratory phase Auscultation: wheezes and diminished lung sounds Cardio Jugular venous distension: no JVD Rate: regular rate Rhythm: regular rhythm Skin Other: warm, dry General skin exam: no rashes or lesions noted Neuro General: patient oriented x3 Cranial nerves: Yes Normal hearing present Cognition (Neuro): normal cognition Gait exam (Neuro): Normal gait present Extrem General: Yes normal to inspection, Yes capillary refill normal, Yes no clubbing, cyanosis or edema and Yes no pedal edema Psych Appearance: grossly normal and well kempt Speech and movement: Normal speech and movement present and Clear speech present Affect: normal affect Attitude: cooperative Thought process: Normal thought process present Thought content: Normal thought content present Insight: Good insight present (Psych) Judgement: Good judgement present (Psych) Assessment & Plan Assessment & Plan (1) COPD (chronic obstructive pulmonary disease): Code(s): J44.9 - Chronic obstructive pulmonary disease, unspecified Category: Medical (2) Nicotine dependence, cigarettes, uncomplicated: Comment: (current smoker - onset 18yo, 1ppd x 50yrs, 50pyh) Code(s): F17.210 - Nicotine dependence, cigarettes, uncomplicated Category: Medical (3) Bronchiectasis: Code(s): J47.9 - Bronchiectasis, uncomplicated Category: Medical (4) Multiple pulmonary nodules: Code(s): R91.8 - Other nonspecific abnormal finding of lung field Category: Medical Plan Will treat current exacerbation with prednisone and doxycycline. He is aware to call if symptoms do not improve or seek emergent care if symptoms worsen. At [facility], he reports good control of respiratory symptoms on current regimen, advised to continue Breyna, Incruse and Combivent PRN. Discussed importance of smoking cessation, unfortunately he is not ready to quit at this time. Chest CT 03/2025 demonstrated improvement in the bilateral lower lobe discoid atelectasis and pleural-parenchymal scarring, resolving nodular opacities however report states stable left lower lobe pleural base pulmonary nodule, however appears more solid. He has upcoming [address] to assess stability in September. All questions were answered and patient is in agreement of plan. Will follow up in 3 months or sooner if needed. Medications: Changed From doxycycline hyclate 100 mg PO BID 10 days 20 tabs 0RF To doxycycline hyclate 100 mg PO BID 14 tabs 0RF 7 days Refilled prednisone see taper instructions; 40 mg Daily x3 days, 30 mg daily x3 days, 20 mg daily x3 days, 10 mg daily x3 days 10 mg PO DIRECTED 30 tabs 0RF Coding Level of Care Code Est Pt Level 4 (61625) Diagnoses COPD (chronic obstructive pulmonary disease) J44.9 Nicotine dependence, cigarettes, uncomplicated F17.210 Bronchiectasis J47.9 Multiple pulmonary nodules R91.8
[2025-08-17 09:48] VITALS: BP 140/50; PULSE 84; O2SAT 97; BMI 19.0
== END 2025-08-17 10:16 | disposition home or self-care (01) ==
LOC: HO.HPS 09:43
PROVIDERS: PCP Nurse Practitioner Family; Visit Provider Nurse Practitioner Family
DX: J44.9 Chronic obstructive pulmonary disease, unspecified (principal); F17.210 Nicotine dependence, cigarettes, uncomplicated; J47.9 Bronchiectasis, uncomplicated; R91.8 Other nonspecific abnormal finding of lung field
CPT/HCPCS: 99214

== ENCOUNTER → 2025-08-17 09:42 | Outpatient (BNVA) | payer MEDICARE, SELFPAY | PROVIDERS: PCP Nurse Practitioner Family; Visit Provider Nurse Practitioner Family | DX: J44.9 Chronic obstructive pulmonary disease, unspecified (principal); J47.9 Bronchiectasis, uncomplicated; R91.8 Other nonspecific abnormal finding of lung field; F17.210 Nicotine dependence, cigarettes, uncomplicated | CPT/HCPCS: 99212 ==